=== PATIENT | male | born 1955 | race Caucasian/White ===

== ENCOUNTER 2023-06-08 10:58 | Inpatient (IN) | payer MEDICARE, SELFPAY ==
[2023-06-08] VITALS (13 sets, daily range): BP systolic 79–137; BP diastolic 49–72; PULSE 51–83; RESP 15–22; TEMP 36.4–36.8; O2SAT 95–100
--- NOTE | ~2023-06-08 | XR_ITS ---
EXAMINATION: XR chest 1V portable DATE: 06/27/2023 13:09 INDICATION: Shortness of breath. TECHNIQUE: A single frontal view of the chest was obtained on 2 radiographs. COMPARISON: Chest single view 06/12/2023, CT abdomen and pelvis 06/27/2023 FINDINGS: Again seen is mild elevation of left hemidiaphragm. Calcified pulmonary nodules and calcifi ed hilar and mediastinal lymph nodes are consistent with old granulomatous disease. No pleural effusi on or pneumothorax. The heart size is normal. IMPRESSION: 1. No acute cardiopulmonary disease. Reviewed, dictated and finalized at location E. FING COORDINATOR
--- NOTE | ~2023-06-08 | XR_ITS ---
EXAMINATION: XR chest 1V portable DATE: 06/10/2023 16:48 INDICATION: Shortness of breath TECHNIQUE: frontal view of the chest was obtained. COMPARISON: Chest radiograph dated 03/24/2014 FINDINGS: Again seen are decreased lung volumes, left greater than right with chronic elevation the left hemidi aphragm. Bilateral mild perihilar increased interstitial pattern which could represent mild pulmonary edema. No pleural effusion or pneumothorax. There are few scattered bilateral small calcified pulmon stephane nodules along with calcified bilateral mediastinal and bilateral hilar lymph nodes consistent wit h old granulomatous disease. Cardiomediastinal silhouette is within normal limits for AP technique. IMPRESSION: 1. Bilateral mild increased perihilar interstitial pattern which could be seen with mild pulmonary ed tien. 2. Small lung volumes with chronic elevation of the left hemidiaphragm. Reviewed, dictated and finalized at location A. IMPRESSION: 1. Bilateral mild increased perihilar interstitial pattern which could be seen with mild pulmonary edema. 2. Small lung volumes with chronic elevation of the left hemidiaphragm.
--- NOTE | ~2023-06-08 | US_ITS ---
EXAMINATION: US paracentesis abd w/image DATE: 06/08/2023 15:27 INDICATION: Ascites. TECHNIQUE: The procedure and its risks and benefits were discussed with the patient. Potential risks discussed included bleeding and infection. The skin was prepped and draped in sterile fashion. 1% lid ocaine was used for local anesthesia. Under ultrasound guidance, a 5 Fr catheter with trochar was adv anced into the ascites in the left lower quadrant. Fluid was aspirated into vacuum bottles. The mitchell ter was removed, and a dressing was applied. There were no immediate complications. FINDINGS: Ultrasound images demonstrate ascites and the catheter within the fluid. IMPRESSION: 1. Successful ultrasound-guided paracentesis yielding 5000 mL of bloody dark maroon-colored fluid. Reviewed, dictated and finalized at location A. IMPRESSION: 1. Successful ultrasound-guided paracentesis yielding 5000 mL of bloody dark m aroon-colored fluid.
--- NOTE | ~2023-06-08 | CT_ITS ---
EXAMINATION: CT abdomen pelvis wo con DATE: 06/27/2023 10:05 INDICATION: Abdominal pain TECHNIQUE: Computed tomography (CT) of the abdomen and pelvis was performed without intravenous contr ast. Automated exposure control and iterative reconstruction technique were employed. The dose-length product was 1491.51 mGy-cm. COMPARISON: 02/05/2023 FINDINGS: Small left and tiny right posterior layering pleural effusions with mild dependent compressive atelec tasis in the bilateral lower lobes. Again seen are a few small bilateral calcified pulmonary nodules along with calcified mediastinal and bilateral hilar lymph nodes and multiple small splenic calcific lesions consistent with old granulomatous disease. Cardiomegaly with scattered atherosclerotic crooks ry artery calcifications. No pericardial effusion. Again seen is a shrunken nodular cirrhotic liver. Persistent large amount of ascites. There multiple small dependently oriented crescentic densities wi thin the ascites in the pelvis which suggests complex ascites with layering blood or material along p ossible internal septations. There are several gallstones within the nondilated gallbladder which is without abnormal gallbladder wall thickening. Pancreas, bilateral adrenal glands are normal. Mild silas ateral renal atrophy with 4.2 cm exophytic cyst at the upper pole of the left kidney. There is modera te colonic diverticulosis with a sigmoid predominance. There is no adjacent inflammatory change to s uggest diverticulitis. No bowel obstruction. 2.6 x 1.8 cm right upper quadrant mass positioned betwee n the liver, inferior vena cava and main portal vein. Again noted is stranding along the greater omen tia. Bladder is normal. No pathologically enlarged abdominal or pelvic lymphadenopathy. Severe spondy losis at L4-L5 with cephalad mild lumbar and moderate lower thoracic spondylosis. IMPRESSION: 1. Persistent large amount of complex ascites with prior diagnostic paracentesis demonstrating hemorr hagic ascites with evidence of metastatic adenocarcinoma. 2.6 x 1.8 cm right upper quadrant mass leander g the inferior vena cava which is also suspicious for metastatic disease. 2. Cirrhosis. 3. Stranding of the greater omentum which could be due to pulmonary venous congestion or metastatic d isease. 4. Cholelithiasis. 5. Small left and trace right pleural effusions. 6. Diverticulosis. 7. Cardiomegaly. Reviewed, dictated and finalized at location A. NG CLOSER IMPRESSION: 1. Persistent large amount of complex ascites with prior diagnostic paracentesi s demonstrating hemorrhagic ascites with evidence of metastatic adenocarcinoma. 2.6 x 1.8 cm right upper quadrant mass along the inferior vena cava which is a lso suspicious for metastatic disease. 2. Cirrhosis. 3. Stranding of the greater omentum which could be due to pulmonary venous kamini estion or metastatic disease. 4. Cholelithiasis. 5. Small left and trace right pleural effusions. 6. Diverticulosis. 7. Cardiomegaly.
--- NOTE | ~2023-06-08 | CT_ITS ---
EXAMINATION: CT abdomen pelvis wo con DATE: 06/08/2023 13:15 INDICATION: One week of weakness. Possible bowel obstruction. TECHNIQUE: Computed tomography (CT) of the abdomen and pelvis was performed without intravenous contr ast. Automated exposure control and iterative reconstruction technique were employed. The dose-length product was 1435.54 mGy-cm. COMPARISON: None FINDINGS: A few scattered bilateral calcified pulmonary nodules, multiple calcified bilateral hilar and mediast inal lymph nodes and multiple tiny splenic calcifications, all consistent with old granulomatous dise ase. Mild cardiomegaly. Atherosclerotic coronary artery calcifications. Scattered mild myocardial fat ty atrophy along the apical septal, apical and anteroseptal segments of the left ventricle consistent with sequela of chronic infarct. No pericardial effusion. Shrunken cirrhotic liver with mild surface nodularity. There is large amount of ascites scattered throughout the abdomen and pelvis. Heterogene ous increased attenuation likely representing either sludge or more likely gallstones within the othe rwise normal-appearing gallbladder with no wall thickening or pericholecystic inflammatory change to suggest acute cholecystitis. Pancreas, bilateral adrenal glands and kidneys are normal. There is mode rate colonic diverticulosis with a sigmoid and descending colon predominance. There is no adjacent i nflammatory change to suggest diverticulitis. No dilated bowel to suggest obstruction. There is exten sive stranding throughout the greater omentum. Gas and a Muñoz catheter within the decompressed bladd er. No pathologically enlarged abdominal or pelvic lymphadenopathy. Transitional sacralized L5 segmen t. Severe disc height loss with degenerative endplate changes at L4-L5. More cephalad mild lumbar and moderate lower thoracic spondylosis. Chronic mild anterior wedging of a few lower thoracic vertebral bodies. IMPRESSION: 1. Cirrhosis with large amount of ascites. 2. Moderate diverticulosis. No bowel obstruction. 2. Cholelithiasis versus sludge within the otherwise normal gallbladder. 4. Mild cardiomegaly coronary artery disease and myocardial fatty atrophy consistent with chronic inf arction in the left anterior descending coronary artery vascular distribution. 5. Nonspecific stranding throughout the greater omentum which could represent edema such in the setti ng of portal venous hypertension. No definitive nodularity although differential would include perito dm implants. There is known history of malignancy. Could consider diagnostic paracentesis. Reviewed, dictated and finalized at location A. IMPRESSION: 1. Cirrhosis with large amount of ascites. 2. Moderate diverticulosis. No bowel obstruction. 2. Cholelithiasis versus sludge within the otherwise normal gallbladder. 4. Mild cardiomegaly coronary artery disease and myocardial fatty atrophy consi stent with chronic infarction in the left anterior descending coronary artery v ascular distribution. 5. Nonspecific stranding throughout the greater omentum which could represent e ayo such in the setting of portal venous hypertension. No definitive nodularit y although differential would include peritoneal implants. There is known histo ry of malignancy. Could consider diagnostic paracentesis.
--- NOTE | ~2023-06-08 | MR_ITS ---
EXAMINATION: MR abdomen wo/w con INDICATION: Adenocarcinoma of unknown primary TECHNIQUE: Coronal SSFSE ARC, WATER:coronal LAVA-FLEX, Coronal 2D FIESTA FatSat, Axial SSFSE BH ARC, Axial 3D DualEcho BH, Axial SSFSE-IR, Axial DWI b=500, Axial 2D FIESTA FatSat, pre and dynamic postco ntrast Axial LAVA ARC, postcontrast Coronal In and Opposed phase LAVA FLEX COMPARISON: CT, 06/08/2023 CONTRAST: Multihance, 20 cc FINDINGS: There are small pleural effusions. There is a large volume of ascites. There is mild nodula rity of the liver surface. The spleen, pancreas, and adrenal glands are unremarkable. Stones are pres ent in the gallbladder which is nondistended. Cysts of the kidneys measure up to 4.2 cm in the left k idney upper pole. There is a 2.5 x 1.7 cm mass in the right upper quadrant situated between the right hepatic lobe, the second portion of the duodenum, and the right kidney. There is thickening of the o mentum. There are no dilated loops of bowel. IMPRESSION: 1. Right upper quadrant mass which could reflect peritoneal metastasis or lymphadenopathy. 2. Large volume of ascites. 3. Omental thickening which could be due to congestion versus malignancy. Reviewed, dictated and finalized at location B. 6TH GRADE TEACHER IMPRESSION: 1. Right upper quadrant mass which could reflect peritoneal metastasis or lymph adenopathy. 2. Large volume of ascites. 3. Omental thickening which could be due to congestion versus malignancy.
--- NOTE | ~2023-06-08 | US_ITS ---
EXAMINATION: US paracentesis abd w/image DATE: 06/12/2023 17:16 INDICATION: Ascites. TECHNIQUE: The procedure and its risks and benefits were discussed with the patient. Potential risks discussed included bleeding and infection. The skin was prepped and draped in sterile fashion. 1% lid ocaine was used for local anesthesia. Under ultrasound guidance, a 5 Fr catheter with trochar was adv anced into the ascites in the left lower quadrant. Fluid was aspirated into vacuum bottles. The mitchell ter was removed, and a dressing was applied. There were no immediate complications. FINDINGS: Ultrasound images demonstrate ascites and the catheter within the fluid. IMPRESSION: 1. Successful ultrasound-guided paracentesis yielding 4000 mL of dark bloody fluid. Reviewed, dictated and finalized at location A. HAND IMPRESSION: 1. Successful ultrasound-guided paracentesis yielding 4000 mL of dark bloody f luid.
--- NOTE | ~2023-06-08 | US_ITS ---
EXAMINATION: US paracentesis abd w/image DATE: 06/22/2023 14:55 INDICATION: Ascites. TECHNIQUE: The procedure and its risks, benefits, and alternatives were discussed with the patient. P otential risks discussed included bleeding and infection. The skin was prepped and draped in sterile fashion. 1% lidocaine was used for local anesthesia. Under ultrasound guidance, a 5 Fr catheter with trochar was advanced into the ascites in the left lower quadrant. Fluid was aspirated. The catheter w as removed, and a dressing was applied. There were no immediate complications. FINDINGS: Ultrasound images demonstrate ascites and the catheter within the fluid. IMPRESSION: 1. Successful ultrasound-guided paracentesis yielding 4400 mL of opaque, red fluid. Reviewed, dictated and finalized at location A. LS INSPECTOR IMPRESSION: 1. Successful ultrasound-guided paracentesis yielding 4400 mL of opaque, red f luid.
--- NOTE | ~2023-06-08 | US_ITS ---
EXAMINATION: US paracentesis abd w/image DATE: 06/20/2023 15:24 INDICATION: Ascites. TECHNIQUE: The procedure and its risks, benefits, and alternatives were discussed with the patient. P otential risks discussed included bleeding and infection. The skin was prepped and draped in sterile fashion. 1% lidocaine was used for local anesthesia. Under ultrasound guidance, a 5 Fr catheter with trochar was advanced into the ascites in the left lower quadrant. Fluid was aspirated. The catheter w as removed, and a dressing was applied. There were no immediate complications. FINDINGS: Ultrasound images demonstrate ascites and the catheter within the fluid. IMPRESSION: 1. Successful ultrasound-guided paracentesis yielding 5000 mL of opaque, dark red fluid. Reviewed, dictated and finalized at location A. LLOFACIAL SURGEON
--- NOTE | ~2023-06-08 | US_ITS ---
EXAMINATION: US paracentesis abd w/image DATE: 06/27/2023 16:54 INDICATION: Ascites. TECHNIQUE: The procedure and its risks and benefits were discussed with the patient. Potential risks discussed included bleeding and infection. The skin was prepped and draped in sterile fashion. 1% lid ocaine was used for local anesthesia. Under ultrasound guidance, a 5 Fr catheter with trochar was adv anced into the ascites in the left lower quadrant. Fluid was aspirated into vacuum bottles. The mitchell ter was removed, and a dressing was applied. There were no immediate complications. FINDINGS: Ultrasound images demonstrate ascites and the catheter within the fluid. IMPRESSION: 1. Successful ultrasound-guided paracentesis yielding 4100 mL of dark bloody maroon-colored fluid. Reviewed, dictated and finalized at location A. NT BOAT AND BARGE LOADER IMPRESSION: 1. Successful ultrasound-guided paracentesis yielding 4100 mL of dark bloody m aroon-colored fluid.
--- NOTE | ~2023-06-08 | XR_ITS ---
EXAMINATION: XR chest 1V, XR abdomen/kub 1V DATE: 06/12/2023 18:20 INDICATION: Worsening nausea and vomiting TECHNIQUE: 1. AP supine view of the chest was obtained. 2. Supine AP view of the abdomen and pelvis was obtained on 2 radiographs. COMPARISON: Chest radiograph dated FINDINGS: Chest : Chronic elevation the left hemidiaphragm. Prior perihilar interstitial opacities resolved. No new air space opacities, pulmonary edema, pleural effusion or pneumothorax. Again seen are few scattered bila teral calcified pulmonary nodules along with prominent bilateral calcified hilar and mediastinal lymp h nodes consistent with old granulomatous disease. Size is normal. KUB: There are some gas in the stomach and scattered throughout the colon. No dilated loops of gas-filled bowel to suggest obstruction. Transitional sacralized L5 segment IMPRESSION: 1. Chronic elevation of the left hemidiaphragm. No acute cardiopulmonary disease. 2. Unremarkable bowel gas pattern with no dilated gas-filled bowel to suggest obstruction. Reviewed, dictated and finalized at location A. [employer] IMPRESSION: 1. Chronic elevation of the left hemidiaphragm. No acute cardiopulmonary diseas e. 2. Unremarkable bowel gas pattern with no dilated gas-filled bowel to suggest o bstruction.
--- NOTE | 2023-06-08 11:58 | ECG_ITS ---
Measurements Intervals [place] Rate: 54 P: 4 MD: 170 QRS: -24 QRSD: 109 T: -42 QT: 448 QTc: 425 Interpretive Statements SINUS BRADYCARDIA LEFT VENTRICULAR HYPERTROPHY AND ST-T CHANGE CANNOT RULE OUT SEPTAL INFARCT, AGE INDETERMINATE T WAVE ABNORMALITY IN ANT/INF LEADS- CONSIDER ISCHEMIA BASELINE ARTIFACT- V5 ABNORMAL ECG NO PREVIOUS ECG AVAILABLE FOR COMPARISON Electronically Signed On 06-08-2023 14:22:31 CDT by Redd Robles D.O.
[2023-06-08] MEDS: SODIUM CHLORIDE 0.9% IV 2,000 ML 999 ML (12:16)
[2023-06-08 12:18] LABS: Basophils Absolute Auto 0.1 K/mm3 (0.0-0.1); Basophils Percent Auto 0.9 % (0.2-1.2); Eosinophils Absolute Auto 0.1 K/mm3 (0-0.3); Eosinophils Percent Auto 0.7 % (0-4.4); Hematocrit 27.2 % (42.0-52.0); Hemoglobin 8.1 g/dL (14.0-18.0); Immature Granulocyte Absolute 0.04 K/mm3 (0.00-0.031); Immature Granulocyte Percent A 0.5 % (0-0.5); Lymphocytes Absolute Auto 1.12 K/mm3 (0.9-3.2); Lymphocytes Percent Auto 13.8 % (18.3-44.2); Mean Corpuscular HGB Conc 29.8 g/dl (32-36); Mean Corpuscular Hemoglobin 27.8 pg (26-34); Mean Corpuscular Volume 93.5 fl (80-100); Mean Platelet Volume 11.1 fl (7.4-10.4); Monocytes Absolute Auto 0.9 K/mm3 (0.1-0.6); Monocytes Percent Auto 10.8 % (2.6-8.5); Neutrophils Percent Auto 73.3 % (45.5-73.1); Platelet Count Result 357 k/mm3 (150-375); Red Blood Count 2.91 M/mm3 (4.6-6.20); White Blood Count 8.1 K/mm3 (4.5-10.0)
[2023-06-08 12:34] LABS: Alanine Aminotransferase 15 U/L (6-50); Albumin Level 3.1 g/dL (3.5-5.1); Alkaline Phosphatase 169 U/L (38-126); Anion Gap 4 mmol/L (8-16); Aspartate Amino Transferase 33 U/L (17-59); Bilirubin,Total 0.7 mg/dL (0.2-1.3); Blood Urea Nitrogen 29 mg/dL (9-20); Calcium 8.3 mg/dL (8.4-10.2); Carbon Dioxide 23 mmol/L (22-30); Chloride 106 mmol/L (98-107); Estimated CRCL calculation 38 ml/min; Estimated Glomerular Filt Rate 32; Glucose 129 mg/dL (65-110); Hypochromasia 1+ (NORMAL); Platelet Estimate Adequate (Adequate); Poikilocytosis 1+ (NORMAL); Potassium 5.7 mmol/L (3.4-5.0); Sodium 133 mmol/L (137-145)
[2023-06-08 12:35] LABS: Anisocytosis 2+ (NORMAL); Schistocytes None Seen (NORMAL)
[2023-06-08 12:39] LABS: Lactic Acid Reflex 2.1 mmol/L (0.7-2.0)
[2023-06-08 12:41] LABS: Appearance Urine Turbid (Clear); Bacteria Urine None Seen /hpf; Bilirubin Urine Negative (Negative); Blood Urine Negative (Negative); Color Urine Yellow (Yellow); Glucose Urine UA Negative (Negative); Hyaline Casts Urine Present /lpf; Ketones Urine Negative (Negative); Leukocyte Esterase Ur Negative LEU/UL (Negative); Nitrate Urine Negative (Negative); Non Pathogenic Casts >20; Protein Urine 2+ mg/dL (Negative); Specific Grav Ur 1.022 (1.001-1.035); Squamous Epithelial Cell Urine Occasional /hpf (Few); pH Urine 6.5 (5.0-9.0)
[2023-06-08 12:42] LABS: Add Urine Microscopic? YES
--- NOTE | 2023-06-08 13:08 | PC.NURSE ---
Pt to CT scan via stretcher at this time. Fluids infusing.
--- NOTE | 2023-06-08 13:29 | ED.GENADULT ---
HPI - General Adult General Chief complaint: Weakness Stated complaint: FALL AT [facility] INITIALLY DIZZY Time Seen by Provider: 06/08/23 12:04 History of Present Illness HPI narrative: Patient is a 67-year-old male who presents ER with weakness. Reports he has been feeling like he has been dying for the last week. He was walking from [facility] to his car when his legs gave out. He is found to be hypotensive bradycardic. He reports over the last week he has been having decreased urination, he has been having blood-tinged diarrhea, and he has been having abdominal cramping. The diarrhea is only squirts he has not had a full bowel movement. Denies history of bowel obstruction. He has no chest pain or chest pressure. He denies dyspnea. He does have a history of coronary stents back in 2013. Reports he has been compliant with his medication. Related Data Home Medications Medication Instructions Recorded Confirmed atorvastatin 40 mg tablet mg 06/08/23 carvedilol 6.25 mg tablet mg 06/08/23 clopidogrel 75 mg tablet mg 06/08/23 lisinopril 5 mg tablet mg 06/08/23 Allergies Allergy/AdvReac Type Severity Reaction Status Date / Time No Known Allergies Allergy Verified 06/08/23 12:13 Review of Systems Review of Systems: All systems reviewed & are unremarkable except as noted in HPI and below Constitutional: Constitutional: Denies chills, Reports fatigue and Denies fever(s) ENT: Denies nasal congestion and Denies sore throat Cardiovascular: Cardiovascular: Denies chest pain, Denies rapid heart rate and Denies radiating jaw, neck or arm pain Respiratory: Respiratory: Denies cough, Denies dyspnea and Denies wheezing Gastrointestinal: Gastrointestinal: Reports abdominal pain, Reports bloating, Reports diarrhea, Denies nausea and Denies vomiting Genitourinary: Genitourinary: Reports oliguria, Denies dysuria and Denies urinary frequency Musculoskeletal: Musculoskeletal: Reports no additional musculoskeletal complaints PMFSH Past Medical History Medical History (Updated 06/08/23 @ 22:05 by Stevan Varghese MD) Coronary artery disease Hypercholesterolemia Hypertension Myocardial infarction Surgical History Surgical History (Updated 06/08/23 @ 13:34 by Stevan Varghese MD) H/O cardiac catheterization Bare-metal stent to proximal LAD 03/2014. Social History Social History Smoking packs per day: 1 Smoking cigarettes per day: 20.0 Years smoked: 47 Smoking pack-years: 47.00 Smoking status: Current every day smoker Tobacco type: cigarettes Alcohol intake: never Substance use: never Lack of Transportation: No Lack of Food: Never True Current Housing: I Have Housing Concerned About Future Housing: No Difficulty Paying Gas/Electric Bills: No Difficulty Paying for Meds: No Currently Unemployed: No Education: Grade School Difficulty w/ Childcare or Family Care: No Spiritual care concerns: No Exam Narrative: GENERAL: Chronically ill-appearing, well-nourished, and in no acute distress. HEAD: Normocephalic, atraumatic. EYES: PERRL and EOMI. ENT: Mucous membranes moist. NECK: Supple. CHEST: Clear to auscultation. No respiratory distress. HEART: Bradycardic and regular. Normal peripheral pulses. ABDOMEN: Soft, nontender, distended. EXTREMITIES: Normal range of motion. 2+ edema. SKIN: Warm, dry, no rash. NEURO:Alert and oriented x3. PSYCH: Normal mood and affect. Course Course Emergency Course: Patient aggressively fluid resuscitated with significant improvement in blood pressure. Patient tolerated paracentesis which radiology reports was grossly bloody. Concern for potentially malignant ascites. We will send for cytology. Admitted to hospitalist service for further treatment evaluation. Vital Signs Vital signs: Vital Signs Temperature 97.6 F 06/08/23 11:06 Pulse Rate 68 06/08/23 11:06 Respiratory Rate 17 06/08/23 11:06 Blood Pressure 99/50
[2023-06-08 13:57] LABS: Troponin I < 0.012 ng/mL (0.000-0.034)
[2023-06-08] MEDS: MORPHINE SULFATE (*CRX) 4 MG/ML INJ IV PUSH (14:02)
[2023-06-08 14:18] LABS: INR 1.2; Prothrombin Time 15.6 Seconds (11.1-14.7)
[2023-06-08 14:19] LABS: Partial Thromboplastin Time 34.4 SECONDS (22.3-36.8)
--- NOTE | 2023-06-08 15:05 | PC.NURSE ---
Pt to U/S for paracentesis at this time. Sister remains at bedside.
[2023-06-08 15:26] LABS: Reflex Lactic Acid Yes or No Add Lactic
[2023-06-08 16:14] LABS: Appearance Peritoneal Fluid Bloody (Clear); Color Peritoneal Fluid Red (Colorless); Lymphocytes Peritoneal Fluid 67 %; Monocytes Peritoneal Fluid 9 %; Neutrophils Peritoneal Fluid 22 % (0-25); Nucleated Cells Peritoneal Flu 981 /uL (0-500); RBC Peritoneal Fluid 305000 /uL (0-100000); Source Peritoneal Fluid Peritoneal Fluid
[2023-06-08 16:15] LABS: Macrophages Peritoneal Fluid 2 %
[2023-06-08 16:22] LABS: Lactic Acid 1.4 mmol/L (0.7-2.0)
--- NOTE | 2023-06-08 19:41 | PM.IMHP ---
H&P: HPI History of Present Illness Date/Time: 06/08/23 19:41 Chief Complaint: weakness Narrative: Patient is a 67-year-old male who presents ER with weakness.? Reports he has been feeling like he has been dying for the last week.? He was walking from [facility] to his car when his legs gave out.? He is found to be hypotensive bradycardic.? He reports over the last week he has been having decreased urination, he has been having blood-tinged diarrhea, and he has been having abdominal cramping.? The diarrhea is only squirts he has not had a full bowel movement.? Denies history of bowel obstruction.? He has no chest pain or chest pressure.? He denies dyspnea.? He does have a history of coronary stents back in 2013.? Reports he has been compliant with his medication. Denies taking anti blood thinner. He was fluid resuscitated in the ER which he responded rapidly, had abdominal paracenteses that yielded 5000 mL of bloody fluid, ordered evaluation showed that patient has VIN with hyperkalemia, which has improved on repeat labs however hemoglobin dropped from 8.1 to 7.7. he denied passing any bloody stool since arrival to the ED. patient stated he feels so much better, he is less weak,and breathing is much better Review of Systems Review of Systems: All system reviewed and found negative except as in HPI PMFSH Past Medical History Medical History (Updated 06/09/23 @ 03:48 by Claudine House MD) Coronary artery disease Hypercholesterolemia Hypertension Myocardial infarction Surgical History Surgical History (Updated 06/08/23 @ 13:34 by Stevan Varghese MD) H/O cardiac catheterization Bare-metal stent to proximal LAD 03/2014. Social History Social History Smoking packs per day: 1 Smoking cigarettes per day: 20.0 Years smoked: 47 Smoking pack-years: 47.00 Smoking status: Current every day smoker Tobacco type: cigarettes Alcohol intake: never Substance use: never Lack of Transportation: No Lack of Food: Never True Current Housing: I Have Housing Concerned About Future Housing: No Difficulty Paying Gas/Electric Bills: No Difficulty Paying for Meds: No Currently Unemployed: No Education: Grade School Difficulty w/ Childcare or Family Care: No Spiritual care concerns: No Meds Home Medications and Allergies Home Medications Medication Instructions Recorded Confirmed Type atorvastatin 40 mg tablet 40 mg PO HS 06/08/23 06/08/23 History carvedilol 6.25 mg tablet 6.25 mg PO BID 06/08/23 06/08/23 History clopidogrel 75 mg tablet 75 mg PO DAILY 06/08/23 06/08/23 History lisinopril 5 mg tablet 5 mg PO BID 06/08/23 06/08/23 History Allergies Allergy/AdvReac Type Severity Reaction Status Date / Time No Known Allergies Allergy Verified 06/08/23 12:13 Vital Signs Vital Signs - 24 hr 06/08/23 11:06 06/08/23 12:12 06/08/23 12:12 Temperature 97.6 F Pulse Rate 68 51 L 51 L Respiratory Rate 17 20 Blood Pressure 99/50 L 79/49 L Pulse Oximetry 99 100 Oxygen Delivery Room Air 06/08/23 12:16 06/08/23 13:28 06/08/23 13:58 Temperature Pulse Rate 51 L 80 82 Respiratory Rate 22 H 20 20 Blood Pressure 89/63 L 118/67 124/64 Pulse Oximetry 100 99 100 Oxygen Delivery 06/08/23 14:50 06/08/23 15:50 06/08/23 17:26 Temperature Pulse Rate 79 81 71 Respiratory Rate 17 19 18 Blood Pressure 116/63 137/67 127/72 Pulse Oximetry 99 100 99 Oxygen Delivery Exam Narrative: GENERAL: Chronically ill-appearing, well-nourished, and in no acute distress. HEAD: Normocephalic, atraumatic. EYES: PERRL and EOMI. ENT:? Mucous membranes moist. NECK: Supple. CHEST: Clear to auscultation.? No respiratory distress. HEART: regular rate and rhythm, no murmur or gallop. ABDOMEN: Soft, nontender, distended, prominent veins EXTREMITIES: Normal range of motion.? 2+ edema. SKIN: Warm, dry, no rash. NEURO:Alert and oriented x3. PSYCH: Normal mood and affect. ? C
--- NOTE | 2023-06-08 20:40 | PC.NURSE ---
Called to give report and was told no one was available to take report at the moment and RN would call back.
[2023-06-08] MEDS: ACETAMINOPHEN 325 MG TABLET 650 MG PO (20:49)
--- NOTE | 2023-06-08 20:55 | PC.NURSE ---
Called to give report. No answer.
--- NOTE | 2023-06-08 21:39 | ADMGEN ---
This patient, Frank Chao III, was admitted to IMU Room 206-02. Patient/family oriented to hospital policies and general routines including ID bracelet, bed and alarms, visiting hours, pain management, procedures, bathroom and other care routines, personal items, smoking policy, room service/diet, and visiting hours. Information on how to activate the Rapid Response Team has been discussed. Patient/Family are encouraged to report perceived risks to care and to ask questions if they do not understand what they are told or what they should do.
[2023-06-08 23:26] LABS: Hematocrit 25.6 % (42.0-52.0); Hemoglobin 7.7 g/dL (14.0-18.0)
[2023-06-08] MEDS: carvediloL 6.25 MG TABLET PO (23:38)
[2023-06-08] MEDS: ATORVASTATIN 40 MG TABLET PO (23:38)
[2023-06-08] MEDS: lisinopriL 5 MG TABLET PO (23:39)
[2023-06-08 23:52] LABS: Anion Gap 2 mmol/L (8-16); Blood Urea Nitrogen 29 mg/dL (9-20); Calcium 7.8 mg/dL (8.4-10.2); Carbon Dioxide 23 mmol/L (22-30); Chloride 108 mmol/L (98-107); Estimated CRCL calculation 40 ml/min; Estimated Glomerular Filt Rate 33; Glucose 78 mg/dL (65-110); Potassium 5.4 mmol/L (3.4-5.0); Sodium 133 mmol/L (137-145)
[2023-06-09] VITALS (17 sets, daily range): BP systolic 0–140; BP diastolic 0–65; PULSE 64–83; RESP 18–22; TEMP 36.1–37; O2SAT 95–100
[2023-06-09 05:40] LABS: Basophils Absolute Auto 0.1 K/mm3 (0.0-0.1); Basophils Percent Auto 0.8 % (0.2-1.2); Eosinophils Absolute Auto 0.1 K/mm3 (0-0.3); Eosinophils Percent Auto 1.3 % (0-4.4); Hematocrit 25.1 % (42.0-52.0); Hemoglobin 7.6 g/dL (14.0-18.0); Immature Granulocyte Absolute 0.03 K/mm3 (0.00-0.031); Immature Granulocyte Percent A 0.4 % (0-0.5); Lymphocytes Absolute Auto 1.03 K/mm3 (0.9-3.2); Lymphocytes Percent Auto 13.8 % (18.3-44.2); Mean Corpuscular HGB Conc 30.3 g/dl (32-36); Mean Corpuscular Hemoglobin 28.4 pg (26-34); Mean Corpuscular Volume 93.7 fl (80-100); Mean Platelet Volume 10.7 fl (7.4-10.4); Monocytes Absolute Auto 0.9 K/mm3 (0.1-0.6); Monocytes Percent Auto 11.8 % (2.6-8.5); Neutrophils Absolute Auto 5.4 K/mm3 (1.3-6.7); Neutrophils Percent Auto 71.9 % (45.5-73.1); Platelet Count Result 321 k/mm3 (150-375); Red Blood Count 2.68 M/mm3 (4.6-6.20); Red Cell Distribution Width 15.9 % (11.5-14.5); White Blood Count 7.5 K/mm3 (4.5-10.0)
[2023-06-09 05:47] LABS: Anion Gap 1 mmol/L (8-16); Blood Urea Nitrogen 28 mg/dL (9-20); Calcium 7.6 mg/dL (8.4-10.2); Carbon Dioxide 24 mmol/L (22-30); Chloride 108 mmol/L (98-107); Estimated CRCL calculation 40 ml/min; Estimated Glomerular Filt Rate 33; Glucose 74 mg/dL (65-110); Sodium 133 mmol/L (137-145)
[2023-06-09 06:07] LABS: Magnesium 2.6 mg/dL (1.6-2.3); Phosphorus 2.7 mg/dL (2.5-4.5)
--- NOTE | 2023-06-09 07:40 | PC.NURSE ---
[address] Rosenberg about transfusion orders, gave verbal order to only transfuse 1 unit at this time
[2023-06-09 08:17] LABS: Hematocrit 27.4 % (42.0-52.0); Hemoglobin 8.3 g/dL (14.0-18.0)
--- NOTE | 2023-06-09 08:40 | PM.IMPN ---
Progress Note: A&P Assessment and Plan (1) Hemorrhagic ascites: Code(s): R18.8 - Other ascites Status: Acute (2) Abdominal ascites: Code(s): R18.8 - Other ascites Status: Acute (3) VIN (acute kidney injury): Code(s): N17.9 - Acute kidney failure, unspecified Status: Acute (4) Anemia: Code(s): D64.9 - Anemia, unspecified Status: Acute (5) GI bleeding: Code(s): K92.2 - Gastrointestinal hemorrhage, unspecified Status: Acute (6) Liver cirrhosis: Code(s): K74.60 - Unspecified cirrhosis of liver Status: Acute Plan 67M w/ PMH CAD s/p stent, HTN, HLD presented with blood tinged stool, abdominal ascites and LE swelling. Admitted on 06/09 for anemia and further workup. 1) anemia - unclear if chronic or acute. cirrhosis vs GI bleed vs AOCD? - history of blood tinged stool is suspect for hemorrhoids. will have to do a rectal exam as it does not appear that was done. either way will allow GI to give their recommendations. he denies caffeine use, active alcohol abuse, he is prior smoker, he takes aspirin daily for his CAD and also takes Excedrin on occasion for headache. - avoid protonix for now as he has ascites, unless absolutely necessary - changed full diet to CLD, GI consulted - HB 7.7, he is going to receive 1 unit PRBC, check again at 1pm 2) cirrhosis - this is new diagnosis to the patient. MELD score 18. needs hepatology referral as outpatient, hopefully GI will have someone to refer him to - denies blood transfusions before 1970. denies heavy alcohol use, was only social drinker before he retired in 2006. no family history of liver disease, denies hx of illicit drug abuse - check hepatitis labs, AFP, and a wide range of others 3) hemorrhagic ascites/SBP - 5L out in ER of blood fluid. the PMNs are above 250 but gram stain grew nothing. will continue ceftriaxone and repeat paracentesis studies tomorrow. will need prophylactic bactrim ongoing as he is very high risk - as of now he appears euvolemic, the paracentesis AND aggressive fluid resuscitation in the ER did not improve his kidney function 4) VIN - likely has CKD, fluid resuscitation did not help. would be prudent to assess for hepatorenal syndrome. discontinue lisinopril and coreg, and give 100mg IV albumin qday x 2 days and re-assess. if no response this is likely hepatorenal syndrome - avoid protonix unless absolutely necessary since it can cause VIN 5) CAD - hold aspirin and beta rupali for now, restart as appropriate 6) hypocalcemia - mild, asymptomatic - start tums replacement. FEN: CLD, saline lock IV GI prophylaxis: avoid for now DVT prophylaxis: SCD's only Lines: PIV Code Status: Full Code Dispo: stable more than 100+ minutes spent on chart review, history taking, and mgmt. Subjective Date/time seen: 06/09/23 08:40 Interval history: NAOE. pt reiterates what he had was a few weeks of blood tinged stool or pinkish stool. he reports he had LE swelling progressing for a week, and abdominal swelling for some time now, but he though it was due to diet Review of Systems Review of Systems: All systems reviewed & are unremarkable except as noted in HPI and below Exam Const: General: comfortable and no acute distress Eyes: Pupils: Equal, round and reactive pupils present Other: no KF rings Neck: Neck: supple Resp: Effort & Inspection: normal respiratory effort Auscultation: clear to auscultation bilaterally and no crackles Cardio: Rate: regular rate Rhythm: regular rhythm Heart sounds: no gallops, no murmurs and no rubs GI: Inspection: distended GI Palp: Yes Firmness to palpation present (GI), No Tenderness to palpation present (GI) and No Guarding due to palpation present (GI) Auscultation: normal bowel sounds Other: dullness to percussion Neuro: Motor exam (neuro): 5/5 motor strength present throughout Extrem: General: edema (1+ edema of B/L distal LEs)
[2023-06-09 09:02] LABS: Cholesterol 96 mg/dL (0-200); HDL Direct 25 mg/dL; Triglycerides 104 mg/dL (<150)
[2023-06-09 09:12] LABS: LDL Cholesterol Direct 50 mg/dL
[2023-06-09] MEDS: ALBUMIN HUMAN 25% 25 GM/100 ML 200 ML IVPB ×2 (10:11→20:04)
[2023-06-09 10:16] LABS: Hepatitis B Core IgM Result Negative (Negative)
[2023-06-09 10:29] LABS: Hepatitis B Surface Anti Res Negative; Hepatitis C Virus Antibody Negative (Negative)
[2023-06-09 13:07] LABS: Iron 38 ug/dL (49-181)
[2023-06-09 13:10] LABS: Hemoglobin A1C 5.5 % (<5.7)
--- NOTE | 2023-06-09 13:12 | PC.NURSE ---
Reported pt's H&H level increase to Dr. Rosenberg, holding blood orders at this time.
[2023-06-09 13:20] LABS: Percent Iron Saturation 21 % (20-50)
[2023-06-09 13:54] LABS: Hematocrit 26.3 % (42.0-52.0); Hemoglobin 7.9 g/dL (14.0-18.0)
--- NOTE | 2023-06-09 15:42 | WPDGICN ---
Assessment and Plan Assessment and plan (1) Liver cirrhosis: Code(s): K74.60 - Unspecified cirrhosis of liver Status: Acute Assessment and Plan: Patient with CT scan imaging which suggest a shrunken cirrhotic liver. Etiology is somewhat uncertain. Patient does not given alcohol history. Plan to obtain laboratory studies to search for other possible etiologies. Hepatitis serologies are in progress. Likely this contributes to his ascitic fluid which appears to have been chronic. Agree with alpha fetoprotein level now and this annually. He also should have yearly imaging studies such as ultrasound or CT scan of the liver. (2) Hemorrhagic ascites: Code(s): R18.8 - Other ascites Status: Acute Assessment and Plan: Patient with ascitic fluid. Likely on the basis of his cirrhosis. Paracentesis suggested bloody ascites. This is somewhat worrisome as this is often related to hepatocellular carcinoma. A traumatic tap is also a possibility. Other lesions cannot be excluded. We will need to check his cytology when available. In the interim we will start patient on low-salt diet and low-dose diuretics to be increased gradually. Daily weights may be of some benefit . monitor I's and O's and electrolytes. (3) Anemia: Code(s): D64.9 - Anemia, unspecified Status: Acute Assessment and Plan: Patient with anemia on presentation. Hemoglobin has remained stable overnight. Iron indices suggest this is from chronic disease. Potentially blood in stool may be contributing. Continue to monitor daily. (4) Blood in stool: Code(s): K92.1 - Melena Status: Acute Assessment and Plan: Patient with blood in stool he describes blood in stool. Hemorrhoids are associated with cirrhosis. Other lesions cannot be excluded. Colonoscopy can be performed after resolution of apparent constipation by history. Stool softeners and laxatives will be implemented at this time. (5) Constipation: Code(s): K59.00 - Constipation, unspecified Status: Acute Assessment and Plan: Start stool softeners and laxatives for a history consistent with constipation. Lactulose would be a good choice given his cirrhosis. (6) Gallstones: Code(s): K80.20 - Calculus of gallbladder without cholecystitis without obstruction Status: Acute Assessment and Plan: Gallstones noted on CT scan imaging are likely asymptomatic. GI Consult Note Consult date/time: 06/09/23 15:42 Reason for consult: Cirrhosis , ascites, and blood in stool HPI: Frank Chao III is a 67 year old male I am asked to see because of cirrhosis. Patient apparently in usual state of health was out shopping and passed out at the store. He was taken to the hospital where he was found to be hypotensive and bradycardic. Patient was noted to have a distended abdomen. CT scan imaging confirmed ascites. Patient states his abdomen is always been large. He has noticed no acute distention of the abdomen. He does report over the last 1-2 weeks he has had trace pedal edema developed. For some time he has had tendency towards constipation. He has difficulty with bowel habit and strains. He feels he cannot evacuate the stool. He will scored out soft stool however. This is somewhat blood-tinged. Patient denies any other active her ongoing bleeding. He denies abdominal pain. Patient denies any history of alcohol use. He has no prior history of hepatitis. He was never told he had liver disease prior to this. patient's family history is noncontributory. Abdominal paracentesis was performed in the emergency room. He was found to have a bloody tap. This was described as large amount of maroon ascitic fluid. Review of Systems Review of Systems: Review of systems noncontributory. [facility] Past Medical History Medical History (Updated 06/09/23 @ 15:47 by Jerardo Locke MD) Coronary artery
[2023-06-09 16:28] LABS: Ammonia < 9 umol/L (9-30)
[2023-06-09 19:30] LABS: Hepatitis B Surface Antigen Negative (Negative)
[2023-06-09] MEDS: SPIRONOLACTONE 50 MG TABLET PO (20:01)
[2023-06-09] MEDS: CALCIUM CARBONATE (TUMS) 500 MG (200 MG ELEMENTAL) 600 MG PO (20:01)
[2023-06-09] MEDS: ATORVASTATIN 40 MG TABLET PO (21:15)
[2023-06-10] VITALS (22 sets, daily range): BP systolic 134–163; BP diastolic 51–73; PULSE 68–94; RESP 16–21; TEMP 36.4–37.2; O2SAT 92–98
[2023-06-10] MEDS: CALCIUM CARBONATE (TUMS) 500 MG (200 MG ELEMENTAL) 600 MG PO (01:13)
[2023-06-10] MEDS: ACETAMINOPHEN 325 MG TABLET 650 MG PO ×2 (01:15→08:55)
[2023-06-10 05:25] LABS: Hematocrit 23.2 % (42.0-52.0); Hemoglobin 7.1 g/dL (14.0-18.0); Mean Corpuscular HGB Conc 30.6 g/dl (32-36); Mean Corpuscular Hemoglobin 28.2 pg (26-34); Mean Corpuscular Volume 92.1 fl (80-100); Platelet Count Result 273 k/mm3 (150-375); Red Blood Count 2.52 M/mm3 (4.6-6.20); Red Cell Distribution Width 16.1 % (11.5-14.5); White Blood Count 7.1 K/mm3 (4.5-10.0)
[2023-06-10 05:39] LABS: Alanine Aminotransferase 11 U/L (6-50); Albumin Level 3.3 g/dL (3.5-5.1); Alkaline Phosphatase 132 U/L (38-126); Anion Gap 4 mmol/L (8-16); Aspartate Amino Transferase 31 U/L (17-59); Bilirubin,Total 0.6 mg/dL (0.2-1.3); Blood Urea Nitrogen 21 mg/dL (9-20); Calcium 8.3 mg/dL (8.4-10.2); Carbon Dioxide 23 mmol/L (22-30); Chloride 106 mmol/L (98-107); Estimated CRCL calculation 44 ml/min; Estimated Glomerular Filt Rate 38; Glucose 95 mg/dL (65-110); Magnesium 2.4 mg/dL (1.6-2.3); Sodium 133 mmol/L (137-145)
[2023-06-10] MEDS: ALBUMIN HUMAN 25% 25 GM/100 ML 200 ML IVPB (08:22)
[2023-06-10] MEDS: polyethylene glycoL 3350 17 GM POWD.PACK PO (08:27)
[2023-06-10] MEDS: SPIRONOLACTONE 50 MG TABLET PO (08:27)
[2023-06-10] MEDS: LACTULOSE 20 GM/30 ML UDC PO (08:27)
--- NOTE | 2023-06-10 10:09 | PC.NURSE ---
This patient, Frank Chao III, was transferred to [facility] on 06/10/23 at 1000. Personal belongings sent with patient. Report given to accepting RN. Appropriate documentation sent with patient.
--- NOTE | 2023-06-10 10:21 | PCDIET ---
Patient transferred to 2[facility] Room 249 via bed at 1000 from IMU. IV access in right and left forearms. Report given by Jammie MAYNARD.
[2023-06-10] MEDS: MORPHINE SULFATE (*CRX) 4 MG/ML INJ IV PUSH (16:03)
--- NOTE | 2023-06-10 17:06 | WPDGIPROGNO ---
Progress Note: A&P Assessment and Plan (1) Hemorrhagic ascites: Code(s): R18.8 - Other ascites Status: Acute Assessment and Plan: Patient with hemorrhagic ascites. Etiology for this likely is secondary to cirrhosis. Bloody ascites most likely from lesions within the peritoneal space. Cytology pending to exclude cancer at this point. Plan to continue diuretics and low-salt diet. Daily weights and monitoring electrolytes in the interim. Patient now on Aldactone. (2) Liver cirrhosis: Code(s): K74.60 - Unspecified cirrhosis of liver Status: Acute Assessment and Plan: Patient with cirrhosis of the liver. Laboratory workup in progress. This may be related to a fatty liver. (3) Constipation: Code(s): K59.00 - Constipation, unspecified Status: Acute Assessment and Plan: Patient apparently has had difficulty with bowel habits. Plan to continue laxatives for presume constipation. Some blood in the stool noted. Perhaps a colonoscopy an EGD when he is stable next week. Potentially this could be performed as an outpatient. (4) Blood in stool: Code(s): K92.1 - Melena Status: Acute Assessment and Plan: Patient with blood tinged stools. This appears be related to his constipation. Given his cirrhosis hemorrhoids are likely. Other lesions cannot be excluded. Colonoscopy will be planned electively this can be done next week or as an outpatient. (5) Anemia: Code(s): D64.9 - Anemia, unspecified Status: Acute Assessment and Plan: Patient with anemia. Hemoglobin essentially stable at present. No significant active bleeding present. GI endoscopy can be performed next week. Continue to monitor for now. Iron studies suggest anemia of chronic disease. I suspect some component of this is related to his cirrhosis. Subjective Date/time seen: 06/10/23 17:06 Interval history: Patient alert comfortable. Offers no significant planes today. No obvious bleeding described. Denies significant abdominal pain. Review of Systems Review of Systems: Review of systems noncontributory. Exam Narrative: Physical exam reveals patient be alert. Comfortable at rest. Vital signs stable. HEENT exam reveals no icterus. Lungs are clear. Heart without murmur. Abdomen is soft only modest distention noted. No localized tenderness. Objective Data Vital Signs Vital Signs: Vital Signs - 24 hr 06/09/23 18:00 06/09/23 18:00 06/09/23 20:20 Temperature 98.1 F 97.7 F Pulse Rate 80 76 Respiratory Rate 22 H Blood Pressure 0/0 L 140/56 L Pulse Oximetry 96 Oxygen Delivery 06/10/23 00:00 06/09/23 20:00 06/09/23 20:00 Temperature 98.2 F Pulse Rate 83 83 83 Respiratory Rate 18 18 Blood Pressure 136/70 Pulse Oximetry 97 97 Oxygen Delivery Room Air 06/09/23 22:00 06/10/23 00:00 06/10/23 02:00 Temperature Pulse Rate 74 77 69 Respiratory Rate Blood Pressure Pulse Oximetry Oxygen Delivery 06/10/23 04:00 06/10/23 04:18 06/10/23 06:00 Temperature 98.9 F Pulse Rate 68 70 71 Respiratory Rate 18 Blood Pressure 134/59 L Pulse Oximetry 97 Oxygen Delivery 06/10/23 07:52 06/10/23 07:50 06/10/23 08:00 Temperature 98.1 F Pulse Rate 73 90 Respiratory Rate 17 Blood Pressure 138/51 L Pulse Oximetry 96 96 Oxygen Delivery Room Air 06/10/23 08:00 06/10/23 10:00 06/10/23 11:56 Temperature 97.9 F Pulse Rate 90 94 74 Respiratory Rate 17 16 Blood Pressure 153/65 H Pulse Oximetry 96 96 Oxygen Delivery Room Air 06/10/23 12:17 06/10/23 13:17 06/10/23 14:17 Temperature 98.3 F 97.5 F L 98.0 F Pulse Rate 75 77 82 Respiratory Rate 18 21 H 18 Blood Pressure 156/65 H 150/66 H 156/62 H Pulse Oximetry 96 98 98 Oxygen Delivery 06/10/23 15:10 06/10/23 12:01 06/10/23 15:57 Temperature 98.3 F 98.3 F Pulse Rate 84 75 80 Respiratory Rate 20 20 Blood P
[2023-06-10 17:08] LABS: Hematocrit 31.5 % (42.0-52.0); Hemoglobin 9.6 g/dL (14.0-18.0); Mean Corpuscular HGB Conc 30.5 g/dl (32-36); Mean Corpuscular Hemoglobin 28.5 pg (26-34); Mean Corpuscular Volume 93.5 fl (80-100); Platelet Count Result 287 k/mm3 (150-375); Red Blood Count 3.37 M/mm3 (4.6-6.20); Red Cell Distribution Width 15.9 % (11.5-14.5); White Blood Count 8.2 K/mm3 (4.5-10.0)
--- NOTE | 2023-06-10 18:51 | PM.IMPN ---
Progress Note: A&P Assessment and Plan (1) Hemorrhagic ascites: Code(s): R18.8 - Other ascites Status: Acute (2) Abdominal ascites: Code(s): R18.8 - Other ascites Status: Acute (3) VIN (acute kidney injury): Code(s): N17.9 - Acute kidney failure, unspecified Status: Acute (4) Anemia: Code(s): D64.9 - Anemia, unspecified Status: Acute (5) GI bleeding: Code(s): K92.2 - Gastrointestinal hemorrhage, unspecified Status: Acute (6) Liver cirrhosis: Code(s): K74.60 - Unspecified cirrhosis of liver Status: Acute Plan 67M w/ PMH CAD s/p stent, HTN, HLD presented with blood tinged stool, abdominal ascites and LE swelling. Admitted on 06/09 for anemia and further workup. 1) anemia - unclear if chronic or acute. cirrhosis vs GI bleed vs AOCD? - history of blood tinged stool is suspect for hemorrhoids. GI consulted. he denies caffeine use, active alcohol abuse, he is prior smoker, he takes aspirin daily for his CAD and also takes Excedrin on occasion for headache. - avoid protonix for now as he has ascites, unless absolutely necessary - changed full diet to CLD, GI consulted. colonoscopy, unsure if will be inpatient or outpatient - received 1 unit PRBC on 06/10. recheck 9.3. goal >8 2) cirrhosis - this is new diagnosis to the patient. MELD score 18. needs hepatology referral as outpatient, hopefully GI will have someone to refer him to - denies blood transfusions before 1970. denies heavy alcohol use, was only social drinker before he retired in 2006. no family history of liver disease, denies hx of illicit drug abuse - check hepatitis labs, AFP, and a wide range of others. most of them are send outs. - lactdulose started on 06/10 3) hemorrhagic ascites/SBP - 5L out in ER of blood fluid. increased PMNs but related to the red cells. continue ceftriaxone. will need prophylactic bactrim ongoing as he is very high risk ARF - volume overload 2/2 fluid administration. give lasix 40mg IV x1 and CTM 4) VIN - likely has CKD, and likely related to cirrhosis. if worsens will need nephrology f/u. currently being diuresed. albumin challenge stopped early 2/2 ARF. discontinued lisinopril and coreg. - avoid protonix unless absolutely necessary since it can cause VIN 5) CAD - hold aspirin and beta rupali for now, restart as appropriate 6) hypocalcemia - mild, asymptomatic. improved on 06/10 - tums started on 06/10 FEN: CLD, saline lock IV GI prophylaxis: avoid for now DVT prophylaxis: SCD's only Lines: PIV Code Status: Full Code Dispo: stable More than 35 minutes spent on chart review, patient interaction and assessment and plan. Subjective Date/time seen: 06/10/23 18:51 Interval history: pt had 3 loose liquid BMs without blood, brown in color. he has no complaints otherwise. Review of Systems Review of Systems: All systems reviewed & are unremarkable except as noted in HPI and below Exam Const: General: comfortable and no acute distress Other: obese Eyes: Pupils: Equal, round and reactive pupils present Neck: Neck: supple Resp: Effort & Inspection: normal respiratory effort Auscultation: crackles Cardio: Rate: regular rate Rhythm: regular rhythm GI: Inspection: distended GI Palp: No Tenderness to palpation present (GI) Auscultation: normal bowel sounds Extrem: General: no edema Objective Data Vital Signs Vital Signs: Vital Signs - 24 hr 06/09/23 20:20 06/10/23 00:00 06/09/23 20:00 Temperature 97.7 F 98.2 F Pulse Rate 76 83 83 Respiratory Rate 22 H 18 Blood Pressure 140/56 L 136/70 Pulse Oximetry 96 97 Oxygen Delivery Oxygen Flow Rate 06/09/23 20:00 06/09/23 22:00 06/10/23 00:00 Temperature Pulse Rate 83 74 77 Respiratory Rate 18 Blood Pressure Pulse Oximetry 97 Oxygen Delivery Room Air Oxygen Flow Rate 06/10/23 02:00 06/10/23 04:00 06/10/23 04:18 Temperature 98.9 F Pulse Rate 69
[2023-06-10] MEDS: FUROSEMIDE INJ 40 MG/4 ML VIAL IV PUSH (20:18)
[2023-06-10] MEDS: ATORVASTATIN 40 MG TABLET PO (20:20)
[2023-06-11] VITALS (11 sets, daily range): BP systolic 115–141; BP diastolic 60–66; PULSE 73–104; RESP 14–16; TEMP 36.8–36.9; O2SAT 95–100
[2023-06-11 05:01] LABS: Hematocrit 30.9 % (42.0-52.0); Hemoglobin 9.6 g/dL (14.0-18.0); Mean Corpuscular HGB Conc 31.1 g/dl (32-36); Mean Corpuscular Hemoglobin 28.2 pg (26-34); Mean Corpuscular Volume 90.9 fl (80-100); Mean Platelet Volume 10.6 fl (7.4-10.4); Platelet Count Result 295 k/mm3 (150-375); White Blood Count 8.6 K/mm3 (4.5-10.0)
[2023-06-11 05:12] LABS: Anion Gap 7 mmol/L (8-16); Blood Urea Nitrogen 17 mg/dL (9-20); Calcium 8.6 mg/dL (8.4-10.2); Carbon Dioxide 23 mmol/L (22-30); Chloride 104 mmol/L (98-107); Estimated CRCL calculation 41 ml/min; Estimated Glomerular Filt Rate 36; Glucose 106 mg/dL (65-110); Potassium 4.9 mmol/L (3.4-5.0); Sodium 134 mmol/L (137-145)
[2023-06-11] MEDS: MORPHINE SULFATE (*CRX) 4 MG/ML INJ IV PUSH (05:34)
[2023-06-11] MEDS: CALCIUM CARBONATE (TUMS) 500 MG (200 MG ELEMENTAL) 600 MG PO ×4 (05:37→23:38)
[2023-06-11] MEDS: LACTULOSE 20 GM/30 ML UDC PO (10:26)
[2023-06-11] MEDS: SPIRONOLACTONE 50 MG TABLET PO ×2 (10:26→18:45)
[2023-06-11] MEDS: polyethylene glycoL 3350 17 GM POWD.PACK PO (10:26)
--- NOTE | 2023-06-11 14:55 | WPDGIPROGNO ---
Progress Note: A&P Assessment and Plan (1) Acute on chronic anemia: Code(s): D64.9 - Anemia, unspecified Status: Acute Assessment and Plan: s/p 1 unit prbc, h/h stable since- no overt gib but had FOBT + probably multifactorial from cirrhosis, renal failure, blood in ascitesetc he will need egd evaluation to assess if portal hypertension, pud, varices- patient complaining of symptomatic reflux/dyspepsia using tums almost daily. Also colonoscopy- h/o constipation, last colonoscopy more than 10 years ago (2) Blood in stool: Code(s): K92.1 - Melena Status: Acute Assessment and Plan: h/h stable will assess with scopes early next week (3) Hemorrhagic ascites: Code(s): R18.8 - Other ascites Status: Acute Assessment and Plan: ? traumatic abdominal exam without pain tolerating diet, 2g na probably another paracentesis tomorrow to remove more fluid and repeat rbc/cell count. started on rocephin (elevated nuc cells but could be high because rbc) (4) Liver cirrhosis: Code(s): K74.60 - Unspecified cirrhosis of liver Status: Acute Assessment and Plan: work up in progress hepatitis negative (5) VIN (acute kidney injury): Code(s): N17.9 - Acute kidney failure, unspecified Status: Acute Assessment and Plan: started on diuresis because ascites- monitor renal function closely (6) Constipation: Code(s): K59.00 - Constipation, unspecified Status: Acute Assessment and Plan: colonoscopy soon Subjective Date/time seen: 06/11/23 14:55 Interval history: no changes, abdomen distension improved after paracentesis but still bloated- wonder if may need more denies rectal bleeding received one unit prbc Review of Systems Review of Systems: All systems reviewed & are unremarkable except as noted in HPI and below Exam Const: General: comfortable and no acute distress Other: obese HENMT: Face/Nose/Sinus: Normal nares present Eyes: Pupils: Equal, round and reactive pupils present Neck: Neck: supple Resp: Effort & Inspection: normal respiratory effort Auscultation: crackles Cardio: Rate: regular rate Rhythm: regular rhythm GI: Inspection: distended GI Palp: Yes Soft to palpation and No Tenderness to palpation present (GI) Auscultation: normal bowel sounds Skin: General skin exam: normal color Neuro: Speech: normal speech Motor exam (neuro): 5/5 motor strength present throughout Extrem: General: no edema Psych: Affect: normal affect Objective Data Vital Signs Vital Signs: Vital Signs - 24 hr 06/10/23 15:10 06/10/23 15:57 06/10/23 16:30 Temperature 98.3 F 98.3 F Pulse Rate 84 80 88 Respiratory Rate 20 20 21 H Blood Pressure 154/59 H 147/60 H Pulse Oximetry 93 94 93 Oxygen Delivery Nasal Cannula Oxygen Flow Rate 2 06/10/23 16:03 06/10/23 19:30 06/10/23 21:12 Temperature 98.0 F Pulse Rate 82 94 Respiratory Rate 20 Blood Pressure 163/73 H Pulse Oximetry 97 97 Oxygen Delivery Room Air Oxygen Flow Rate 06/10/23 20:06 06/10/23 20:00 06/11/23 00:00 Temperature Pulse Rate 83 85 Respiratory Rate Blood Pressure Pulse Oximetry 92 Oxygen Delivery Nasal Cannula Oxygen Flow Rate 2 06/11/23 04:03 06/11/23 04:10 Temperature 98.5 F Pulse Rate 81 80 Respiratory Rate 14 Blood Pressure 141/66 H Pulse Oximetry 98 Oxygen Delivery Oxygen Flow Rate Intake/Output Intake/Output: Intake & Output 06/08/23 06/09/23 06/10/23 06/11/23 23:59 23:59 23:59 23:59 Intake Total 1999 1900 1140 100 Output Total 5000 1250 2050 2100 Balance -3000 650 -910 -2000 Meds/Results Medications: Active Medications Generic Name Dose Route Start Last Admin Trade Name Marjyo PRN Reason Stop Dose Admin Acetaminophen 650 mg 06/08/23 15:55 06/10/23 08:55 Acetaminophen 325 Mg Tablet PO 650 mg Q4H PRN Administration Mild Pain (1-3) or Fever
--- NOTE | 2023-06-11 15:51 | PM.IMPN ---
Progress Note: A&P Assessment and Plan (1) Acute on chronic anemia: Code(s): D64.9 - Anemia, unspecified Status: Acute (2) Gallstones: Code(s): K80.20 - Calculus of gallbladder without cholecystitis without obstruction Status: Acute (3) Constipation: Code(s): K59.00 - Constipation, unspecified Status: Acute (4) Blood in stool: Code(s): K92.1 - Melena Status: Acute (5) Hemorrhagic ascites: Code(s): R18.8 - Other ascites Status: Acute (6) Abdominal ascites: Code(s): R18.8 - Other ascites Status: Acute (7) VIN (acute kidney injury): Code(s): N17.9 - Acute kidney failure, unspecified Status: Acute (8) Hyperkalemia: Code(s): E87.5 - Hyperkalemia Status: Acute Plan 67M w/ PMH CAD s/p stent, HTN, HLD presented with blood tinged stool, abdominal ascites and LE swelling. Admitted on 06/09 for anemia and further workup. 1) anemia - unclear if chronic or acute. cirrhosis vs GI bleed vs AOCD? - stable s/p 1 unit PRBC on 06/10. ctm. goal >8 - stool occult positive. denies caffeine use or alcohol abuse, but does take daily aspirin for CAD and plavix, and NSAID maybe. GI consulted and will go for EGD/colonoscopy. hold off on protonix in the meantime 2/2 to ascites and VIN, but this may be needed depending on EGD findings. he complained of ongoing acid reflux symptoms prior to admission 2) cirrhosis - this is new diagnosis to the patient. MELD score 18. needs hepatology referral as outpatient, hopefully GI will have someone to refer him to - denies blood transfusions before 1970. denies heavy alcohol use, was only social drinker before he retired in 2006. no family history of liver disease, denies hx of illicit drug abuse - AFP and ascitic fluid cytology pending. hepatitis serology negative - lactulose started on 06/10 3) hemorrhagic ascites - spironolactone started - s/p 5L out on admission with many red cells. also had PMN's but that's equivocal. may need another paracentesis - no evidence of SBP, ceftriaxone dc'ed. continue with bactrim daily for prophylaxis in a pt with cirrhosis, ascites, and kidney injury. avoid protonix if possible. monitor potassium intermittently 4) constipation - verbal complaints, he feels better after multiple BM's - continue lactulose, dc miralax 5) acute hypoxic respiratory failure - volume overload 2/2 fluid administration on 06/10. resolved s/o lasix 40mg iv x1. ct 6) VIN - likely has CKD, and likely related to cirrhosis. if worsens will need nephrology f/u. currently being diuresed. albumin challenge stopped early 2/2 ARF. discontinued lisinopril and coreg. 7) CAD - hold aspirin and plavix and beta rupali for now, restart as appropriate 8) hypocalcemia - mild, asymptomatic. resolved s/p tums started on 06/10 FEN: cardiac diet, saline lock IV GI prophylaxis: avoid for now DVT prophylaxis: SCD's only Lines: PIV Code Status: Full Code Dispo: stable More than 35 minutes spent on chart review, patient interaction and assessment and plan. Subjective Date/time seen: 06/11/23 15:51 Interval history: multiple loose stools, pt has no complaints other than feels his belly is big again, with fluid. denies sob or chest pain Review of Systems Review of Systems: All systems reviewed & are unremarkable except as noted in HPI and below Exam Const: General: comfortable and no acute distress Eyes: Pupils: Equal, round and reactive pupils present Neck: Neck: supple Resp: Effort & Inspection: normal respiratory effort Auscultation: clear to auscultation bilaterally Cardio: Rate: regular rate Rhythm: regular rhythm Heart sounds: no gallops, no murmurs and no rubs GI: Inspection: distended GI Palp: Yes Soft to palpation and No Tenderness to palpation present (GI) Auscultation: normal bowel sounds Other: shifting dullness and fluid wave negative Extrem: General: no edema Objective
[2023-06-11] MEDS: ACETAMINOPHEN 325 MG TABLET 650 MG PO (16:11)
[2023-06-11 19:49] LABS: Amylase Peritoneal Fluid <10 U/L
[2023-06-11] MEDS: ATORVASTATIN 40 MG TABLET PO (22:31)
[2023-06-12] VITALS (9 sets, daily range): BP systolic 129–148; BP diastolic 68–73; PULSE 60–107; RESP 16–20; TEMP 36–36.8; O2SAT 95–96
[2023-06-12] MEDS: ONDANSETRON INJ 4 MG/2 ML VIAL IV PUSH ×3 (05:32→23:21)
[2023-06-12 05:50] LABS: Hematocrit 37.2 % (42.0-52.0); Hemoglobin 11.4 g/dL (14.0-18.0); Mean Corpuscular HGB Conc 30.6 g/dl (32-36); Mean Corpuscular Hemoglobin 28.4 pg (26-34); Mean Corpuscular Volume 92.8 fl (80-100); Mean Platelet Volume 10.8 fl (7.4-10.4); Platelet Count Result 314 k/mm3 (150-375); Red Blood Count 4.01 M/mm3 (4.6-6.20); Red Cell Distribution Width 16.3 % (11.5-14.5); White Blood Count 11.7 K/mm3 (4.5-10.0)
[2023-06-12 06:07] LABS: Alanine Aminotransferase 16 U/L (6-50); Alkaline Phosphatase 153 U/L (38-126); Anion Gap 10 mmol/L (8-16); Aspartate Amino Transferase 35 U/L (17-59); Bilirubin,Total 0.7 mg/dL (0.2-1.3); Blood Urea Nitrogen 23 mg/dL (9-20); Calcium 9.9 mg/dL (8.4-10.2); Carbon Dioxide 21 mmol/L (22-30); Chloride 102 mmol/L (98-107); Estimated CRCL calculation 41 ml/min; Estimated Glomerular Filt Rate 36; Glucose 134 mg/dL (65-110); Magnesium 2.2 mg/dL (1.6-2.3); Potassium 5.2 mmol/L (3.4-5.0); Sodium 133 mmol/L (137-145)
[2023-06-12] MEDS: CALCIUM CARBONATE (TUMS) 500 MG (200 MG ELEMENTAL) 600 MG PO ×4 (06:12→23:21)
[2023-06-12 08:42] LABS: Procalcitonin 0.5 ng/mL
[2023-06-12] MEDS: SULFAMETHOXAZOLE/TRIMETHOPRIM 800/160 MG DS TABLET 1 TAB PO (10:23)
[2023-06-12] MEDS: LACTULOSE 20 GM/30 ML UDC PO (10:23)
[2023-06-12] MEDS: SPIRONOLACTONE 50 MG TABLET PO ×2 (10:24→18:57)
[2023-06-12] MEDS: ACETAMINOPHEN 325 MG TABLET 650 MG PO (10:24)
[2023-06-12 11:51] LABS: Mitochondrial (M2) Ab (IgG) <=20.0 U (<=20.0)
[2023-06-12 12:49] LABS: ANA Cascade Screen Negative (Negative)
[2023-06-12 13:36] LABS: Mean Platelet Volume 10.5 fl (7.4-10.4); Platelet Count Result 275 k/mm3 (150-375)
[2023-06-12 13:54] LABS: INR 1.2; Prothrombin Time 15.5 Seconds (11.1-14.7)
[2023-06-12 13:55] LABS: Partial Thromboplastin Time 30.8 SECONDS (22.3-36.8)
[2023-06-12 14:04] LABS: Add Urine Microscopic? YES; Appearance Urine Turbid (Clear); Bacteria Urine None Seen /hpf; Bilirubin Urine Negative (Negative); Blood Urine 2+ (Negative); Color Urine Dark Yellow (Yellow); Glucose Urine UA Negative (Negative); Granular Casts Urine Present /lpf; Hyaline Casts Urine Present /lpf; Ketones Urine Trace mg/dL (Negative); Leukocyte Esterase Ur Trace LEU/UL (NEGATIVE); Mucus Urine Present /lpf; Nitrate Urine Negative (Negative); Non Pathogenic Casts >20; Protein Urine 3+ mg/dL (Negative); Specific Grav Ur 1.025 (1.001-1.035); Squamous Epithelial Cell Urine Moderate /hpf (Few); Urobilinogen Urine 0.2 mg/dL (<2.0)
--- NOTE | 2023-06-12 14:06 | WPDGIPROGNO ---
Progress Note: A&P Assessment and Plan (1) Acute on chronic anemia: Code(s): D64.9 - Anemia, unspecified Status: Acute Assessment and Plan: s/p 1 unit prbc, h/h stable since- no overt gib but had FOBT + probably multifactorial from cirrhosis, renal failure, blood in ascites, etc will arrange egd to assess if portal hypertension, pud, varices- patient complaining of symptomatic reflux/dyspepsia using tums almost daily. And colonoscopy- h/o constipation, last colonoscopy more than [address] Locke returns tomorrow, patient prefer to get scopes sooner rather than later (2) Blood in stool: Code(s): K92.1 - Melena Status: Acute Assessment and Plan: h/h stable will assess with scopes in am, bowel prep this evening (3) Hemorrhagic ascites: Code(s): R18.8 - Other ascites Status: Acute Assessment and Plan: wonder if was traumatic abdominal exam without pain tolerating diet, 2g na repeat another paracentesis to remove more fluid and recheck again rbc/cell count- if rbc normal this time probably was traumatic, likewise cell count elevated because high rbc- patient received rocephin. (4) Liver cirrhosis: Code(s): K74.60 - Unspecified cirrhosis of liver Status: Acute Assessment and Plan: work up in progress hepatitis negative (5) VIN (acute kidney injury): Code(s): N17.9 - Acute kidney failure, unspecified Status: Acute Assessment and Plan: started on diuresis because ascites- monitor renal function closely, creatinine stable (6) Constipation: Code(s): K59.00 - Constipation, unspecified Status: Acute Assessment and Plan: colonoscopy Subjective Date/time seen: 06/12/23 14:06 Interval history: abdomen less distended since admission but still uncomfortable he is eating no overt gib Review of Systems Review of Systems: All systems reviewed & are unremarkable except as noted in HPI and below Exam Const: General: comfortable and no acute distress Other: obese HENMT: Face/Nose/Sinus: Normal nares present Eyes: Pupils: Equal, round and reactive pupils present Neck: Neck: supple Resp: Effort & Inspection: normal respiratory effort Auscultation: crackles Cardio: Rate: regular rate Rhythm: regular rhythm GI: Inspection: distended GI Palp: Yes Soft to palpation and No Tenderness to palpation present (GI) Auscultation: normal bowel sounds Skin: General skin exam: normal color Neuro: Speech: normal speech Motor exam (neuro): 5/5 motor strength present throughout Extrem: General: no edema Psych: Affect: normal affect Objective Data Vital Signs Vital Signs: Vital Signs - 24 hr 06/11/23 16:03 06/11/23 19:23 06/11/23 22:20 Temperature 98.2 F Pulse Rate 104 H 100 Respiratory Rate 16 Blood Pressure 115/60 Pulse Oximetry 95 Oxygen Delivery Room Air 06/11/23 20:00 06/12/23 00:00 06/12/23 04:00 Temperature Pulse Rate 80 87 85 Respiratory Rate Blood Pressure Pulse Oximetry Oxygen Delivery 06/12/23 04:42 Temperature 97.6 F Pulse Rate 60 Respiratory Rate 16 Blood Pressure 148/68 H Pulse Oximetry 96 Oxygen Delivery Intake/Output Intake/Output: Intake & Output 06/09/23 06/10/23 06/11/23 06/12/23 23:59 23:59 23:59 22:59 Intake Total 1900 1140 420 290 Output Total 1250 2050 2400 300 Balance 650 -910 -1980 -10 Meds/Results Medications: Active Medications Generic Name Dose Route Start Last Admin Trade Name Freq PRN Reason Stop Dose Admin Acetaminophen 650 mg 06/08/23 15:55 06/12/23 10:24 Acetaminophen 325 Mg Tablet PO 650 mg Q4H PRN Administration Mild Pain (1-3) or Fever Atorvastatin Calcium 40 mg 06/08/23 22:55 06/11/23 22:31 Atorvastatin 40 Mg Tablet PO 40 mg HS MINISTERIO Administration Bisacodyl 20 mg 06/12/23 16:00 Bisacodyl 5 Mg Tablet Ec PO 06/12/23 16:01 ONCE ONE Calcium Carbonate
[2023-06-12] MEDS: METOCLOPRAMIDE HCL INJ 10 MG/2 ML VIAL 5 MG IV PUSH (18:06)
[2023-06-12 18:55] LABS: Basophils Absolute Auto 0.1 K/mm3 (0.0-0.1); Basophils Percent Auto 0.6 % (0.2-1.2); Eosinophils Absolute Auto 0.1 K/mm3 (0-0.3); Eosinophils Percent Auto 0.6 % (0-4.4); Hematocrit 31.3 % (42.0-52.0); Hemoglobin 9.8 g/dL (14.0-18.0); Immature Granulocyte Absolute 0.04 K/mm3 (0.00-0.031); Immature Granulocyte Percent A 0.4 % (0-0.5); Lymphocytes Absolute Auto 1.31 K/mm3 (0.9-3.2); Lymphocytes Percent Auto 13.3 % (18.3-44.2); Mean Corpuscular HGB Conc 31.3 g/dl (32-36); Mean Corpuscular Hemoglobin 28.3 pg (26-34); Mean Corpuscular Volume 90.5 fl (80-100); Mean Platelet Volume 10.5 fl (7.4-10.4); Monocytes Absolute Auto 1.1 K/mm3 (0.1-0.6); Neutrophils Absolute Auto 7.3 K/mm3 (1.3-6.7); Neutrophils Percent Auto 74.1 % (45.5-73.1); Platelet Count Result 276 k/mm3 (150-375); Red Blood Count 3.46 M/mm3 (4.6-6.20); Red Cell Distribution Width 16.2 % (11.5-14.5); White Blood Count 9.8 K/mm3 (4.5-10.0)
[2023-06-12] MEDS: FUROSEMIDE INJ 40 MG/4 ML VIAL 20 MG IV PUSH (18:56)
[2023-06-12 19:07] LABS: Alanine Aminotransferase 15 U/L (6-50); Albumin Level 3.6 g/dL (3.5-5.1); Alkaline Phosphatase 153 U/L (38-126); Anion Gap 6 mmol/L (8-16); Aspartate Amino Transferase 33 U/L (17-59); Bilirubin,Total 0.6 mg/dL (0.2-1.3); Blood Urea Nitrogen 28 mg/dL (9-20); Calcium 9.7 mg/dL (8.4-10.2); Carbon Dioxide 24 mmol/L (22-30); Chloride 102 mmol/L (98-107); Estimated CRCL calculation 39 ml/min; Estimated Glomerular Filt Rate 33; Glucose 126 mg/dL (65-110); Lactate Dehydrogenase 187 U/L (120-246); Lipase 107 U/L (23-300); Potassium 4.9 mmol/L (3.4-5.0); Sodium 132 mmol/L (137-145)
[2023-06-12 19:17] LABS: Troponin I 0.028 ng/mL (0.000-0.034)
--- NOTE | 2023-06-12 19:28 | PM.IMPN ---
Progress Note: A&P Assessment and Plan (1) Acute on chronic anemia: Code(s): D64.9 - Anemia, unspecified Status: Acute (2) Gallstones: Code(s): K80.20 - Calculus of gallbladder without cholecystitis without obstruction Status: Acute (3) Constipation: Code(s): K59.00 - Constipation, unspecified Status: Acute (4) Blood in stool: Code(s): K92.1 - Melena Status: Acute (5) Hemorrhagic ascites: Code(s): R18.8 - Other ascites Status: Acute (6) Abdominal ascites: Code(s): R18.8 - Other ascites Status: Acute (7) VIN (acute kidney injury): Code(s): N17.9 - Acute kidney failure, unspecified Status: Acute (8) Hyperkalemia: Code(s): E87.5 - Hyperkalemia Status: Acute Plan 67M w/ PMH CAD s/p stent, HTN, HLD presented with blood tinged stool, abdominal ascites and LE swelling. Admitted on 06/09 for anemia and further workup. 1) anemia - unclear if chronic or acute. cirrhosis vs GI bleed vs AOCD - stable s/p 1 unit PRBC on 06/10. ctm. goal >8 - stool occult positive. denies caffeine use or alcohol abuse, but does take daily aspirin for CAD and plavix, and NSAID maybe. GI consulted and will go for EGD/colonoscopy. hold off on protonix in the meantime 2/2 to ascites and VIN, but this may be needed depending on EGD findings. he complained of ongoing acid reflux symptoms prior to admission. plan for colonoscopy/EGD, GI following 2) cirrhosis - this is new diagnosis to the patient. MELD score 18. needs hepatology referral as outpatient, hopefully GI will have someone to refer him to - denies blood transfusions before 1970. denies heavy alcohol use, was only social drinker before he retired in 2006. no family history of liver disease, denies hx of illicit drug abuse - AFP and ascitic fluid cytology pending. hepatitis serology negative - lactulose started on 06/10 3) hemorrhagic ascites - spironolactone started, and lasix added 06/12 - s/p 5L out on admission with many red cells. also had PMN's but that's equivocal. repeat paracentesis on 06/12 with 4L out, repeat ascitic fluid studies pending - on ceftriaxone since admission, continue with bactrim daily for prophylaxis on d/c in a pt with cirrhosis, ascites, and kidney injury. avoid protonix if possible. monitor potassium intermittently nausea, vomiting, leukocytosis, and bladder pain on 06/12 - on ceftriaxone, redraw UA. pending CXR and KUB. lipase negative. follow white count and procalcitonin - reglan added to zofran. f/u QTC intermittently 4) constipation - verbal complaints, he feels better after multiple BM's - continue lactulose, dc'ed miralax 5) acute hypoxic respiratory failure - volume overload 2/2 fluid administration on 06/10. resolved s/o lasix 40mg iv x1. ctm 6) VIN - likely has CKD, and likely related to cirrhosis. if worsens will need nephrology f/u. currently being diuresed. albumin challenge stopped early 2/2 ARF. discontinued lisinopril and coreg. HTN - dc'ed lisinopril, coreg, and coreg. spironolactone and lasix started. CTM 7) CAD - hold aspirin and plavix and coreg for now in light of ascites, restart as appropriate 8) hypocalcemia - mild, asymptomatic. resolved s/p tums started on 06/10 FEN: cardiac diet, saline lock IV GI prophylaxis: avoid for now DVT prophylaxis: SCD's only Lines: PIV Code Status: Full Code Dispo: stable More than 35 minutes spent on chart review, patient interaction and assessment and plan. Subjective Date/time seen: 06/12/23 19:28 Interval history: pt had a few episodes of nausea and vomiting w/o blood. complained of pain at bladder. otherwise denies cough or shortness of breath or chest pain Review of Systems Review of Systems: All systems reviewed & are unremarkable except as noted in HPI and below Exam Const: General: comfortable Eyes: Pupils: Equal, round and reactive pupils present Neck: Neck: supple Resp: Effort & Ins
[2023-06-12] MEDS: ATORVASTATIN 40 MG TABLET PO (20:09)
[2023-06-12 20:38] LABS: Appearance Peritoneal Fluid Bloody (Clear); Source Peritoneal Fluid Peritoneal Fluid
[2023-06-12 20:39] LABS: Color Peritoneal Fluid Red (Colorless); Nucleated Cells Peritoneal Flu 1030 /uL (0-500); RBC Peritoneal Fluid 320000 /uL (0-100000)
[2023-06-12 20:42] LABS: Lymphocytes Peritoneal Fluid 42 %; Neutrophils Peritoneal Fluid 32 % (0-25)
[2023-06-12 20:43] LABS: Macrophages Peritoneal Fluid 25 %; Monocytes Peritoneal Fluid 1 %
[2023-06-13] VITALS (11 sets, daily range): BP systolic 95–123; BP diastolic 50–67; PULSE 85–102; RESP 14–20; TEMP 36.1–36.5; O2SAT 93–96
--- NOTE | 2023-06-13 | ECG_ITS ---
Measurements Intervals [place] Rate: 79 P: 14 TX: 162 QRS: -17 QRSD: 169 T: 149 QT: 410 QTc: 471 Interpretive Statements SINUS RHYTHM LEFT BUNDLE BRANCH BLOCK ABNORMAL ECG COMPARED TO ECG 06/08/2023 12:05:26 SINUS RHYTHM NOW PRESENT LEFT BUNDLE-BRANCH BLOCK NOW PRESENT Electronically Signed On 06-13-2023 10:07:14 [employer] by Redd Robles D.O.
[2023-06-13 04:54] LABS: Glucose Peritoneal Fluid 36 mg/dL
[2023-06-13] MEDS: CALCIUM CARBONATE (TUMS) 500 MG (200 MG ELEMENTAL) 600 MG PO ×3 (05:55→17:33)
[2023-06-13 06:10] LABS: Basophils Absolute Auto 0.1 K/mm3 (0.0-0.1); Basophils Percent Auto 0.8 % (0.2-1.2); Eosinophils Absolute Auto 0.1 K/mm3 (0-0.3); Eosinophils Percent Auto 0.5 % (0-4.4); Hematocrit 32.1 % (42.0-52.0); Immature Granulocyte Absolute 0.04 K/mm3 (0.00-0.031); Immature Granulocyte Percent A 0.4 % (0-0.5); Lymphocytes Absolute Auto 1.46 K/mm3 (0.9-3.2); Mean Corpuscular HGB Conc 31.2 g/dl (32-36); Mean Corpuscular Hemoglobin 28.2 pg (26-34); Mean Corpuscular Volume 90.7 fl (80-100); Mean Platelet Volume 10.3 fl (7.4-10.4); Monocytes Absolute Auto 1.2 K/mm3 (0.1-0.6); Neutrophils Absolute Auto 6.9 K/mm3 (1.3-6.7); Neutrophils Percent Auto 71.3 % (45.5-73.1); Platelet Count Result 265 k/mm3 (150-375); Red Blood Count 3.54 M/mm3 (4.6-6.20); White Blood Count 9.7 K/mm3 (4.5-10.0)
[2023-06-13 06:26] LABS: Anion Gap 4 mmol/L (8-16); Blood Urea Nitrogen 29 mg/dL (9-20); Calcium 9.7 mg/dL (8.4-10.2); Carbon Dioxide 28 mmol/L (22-30); Chloride 101 mmol/L (98-107); Estimated CRCL calculation 33 ml/min; Estimated Glomerular Filt Rate 29; Glucose 110 mg/dL (65-110); Potassium 5.4 mmol/L (3.4-5.0); Sodium 133 mmol/L (137-145)
[2023-06-13 07:00] LABS: Procalcitonin 0.5 ng/mL
--- NOTE | 2023-06-13 07:49 | PM.IMPN ---
Progress Note: A&P Assessment and Plan (1) Acute on chronic anemia: Code(s): D64.9 - Anemia, unspecified Status: Acute (2) Gallstones: Code(s): K80.20 - Calculus of gallbladder without cholecystitis without obstruction Status: Acute (3) Constipation: Code(s): K59.00 - Constipation, unspecified Status: Acute (4) Blood in stool: Code(s): K92.1 - Melena Status: Acute (5) Hemorrhagic ascites: Code(s): R18.8 - Other ascites Status: Acute (6) Abdominal ascites: Code(s): R18.8 - Other ascites Status: Acute (7) VIN (acute kidney injury): Code(s): N17.9 - Acute kidney failure, unspecified Status: Acute (8) Hyperkalemia: Code(s): E87.5 - Hyperkalemia Status: Acute Plan 67M w/ PMH CAD s/p stent, HTN, HLD presented with blood tinged stool, abdominal ascites and LE swelling. Admitted on 06/09 for anemia and further workup. 1) anemia - unclear if chronic or acute. cirrhosis vs GI bleed vs AOCD - stable s/p 1 unit PRBC on 06/10. ctm. goal >8 - stool occult positive. denies caffeine use or alcohol abuse, but does take daily aspirin for CAD and plavix, and NSAID maybe. GI consulted plans EGD/colonoscopy tomorrow PPI depending on EGD findings. he complained of ongoing acid reflux symptoms prior to admission. 2) cirrhosis - this is new diagnosis to the patient. MELD score 18. needs hepatology referral as outpatient, GI management per GI - denies blood transfusions before 1970. denies heavy alcohol use, was only social drinker before he retired in 2006. no family history of liver disease, denies hx of illicit drug abuse - AFP and ascitic fluid cytology pending. hepatitis serology negative - lactulose started on 06/10 3) hemorrhagic ascites - spironolactone started, and lasix added 06/12 - s/p 5L out on admission with many red cells. also had PMN's but that's equivocal. repeat paracentesis on 06/12 with 4L out, repeat ascitic fluid studies pending - on ceftriaxone since admission, continue with bactrim daily for prophylaxis on d/c in a pt with cirrhosis, ascites, and kidney injury. avoid protonix if possible. monitor potassium intermittently nausea, vomiting, leukocytosis, and bladder pain on 06/12 - on ceftriaxone, redraw UA. pending CXR and KUB. lipase negative. follow white count and procalcitonin - reglan added to zofran. f/u QTC intermittently 4) constipation - verbal complaints, he feels better after multiple BM's - continue lactulose Resolves 5) acute hypoxic respiratory failure - volume overload 2/2 fluid administration on 06/10. resolved s/o lasix 40mg iv x1. ctm 6) VIN, hyperkalemia, - likely has CKD, and likely related to cirrhosis. albumin challenge stopped early 2/2 ARF. discontinued lisinopril and coreg. Kidney function is worse, potassium 5.4 Hold diuretic medication: furosemide and spironolactone HTN - dc'ed lisinopril, coreg, and coreg. CTM 7) CAD - hold aspirin and plavix and coreg for now in light of ascites, restart as appropriate 8) hypocalcemia - mild, asymptomatic. resolved s/p tums started on 06/10 FEN: cardiac diet, saline lock IV GI prophylaxis: avoid for now DVT prophylaxis: SCD's only Lines: PIV Code Status: Full Code Dispo: stable More than 35 minutes spent on chart review, patient interaction and assessment and plan. Subjective Date/time seen: 06/13/23 07:49 Interval history: pt had a few episodes of nausea and vomiting denies black emesis, black stool. Patient denies cough or shortness of breath or chest pain Exam Narrative: GENERAL: Chronically ill-appearing, well-nourished, and in no acute distress. HEAD: Normocephalic, atraumatic. EYES: PERRL and EOMI. ENT:? Mucous membranes moist. NECK: Supple. CHEST: Clear to auscultation.? No respiratory distress. HEART: regular rate and rhythm, no murmur or gallop. ABDOMEN: Soft, nontender, distended, prominent veins EXTREMITIES:
[2023-06-13] MEDS: LACTULOSE 20 GM/30 ML UDC PO (08:52)
[2023-06-13] MEDS: ONDANSETRON INJ 4 MG/2 ML VIAL IV PUSH (08:57)
[2023-06-13] MEDS: MORPHINE SULFATE (*CRX) 4 MG/ML INJ IV PUSH (08:57)
--- NOTE | 2023-06-13 09:29 | WPDGIPROGNO ---
Progress Note: A&P Assessment and Plan (1) Acute on chronic anemia: Code(s): D64.9 - Anemia, unspecified Status: Acute Assessment and Plan: Patient with anemia. Iron indices suggest chronic disease. Recently found to have stool Hemoccult positive. Plan for colonoscopy an EGD after preparation tomorrow. (2) Occult blood in stools: Code(s): R19.5 - Other fecal abnormalities Status: Acute Assessment and Plan: Occult blood noted in stool. No active bleeding identified. Endoscopy will be anticipated to exclude GI lesions. High-fiber diet suggested at present (3) Liver cirrhosis: Code(s): K74.60 - Unspecified cirrhosis of liver Status: Acute Assessment and Plan: patient with apparent cirrhosis on imaging studies. May be cryptogenic. Supportive care for now. Lab studies in progress. (4) Hemorrhagic ascites: Code(s): R18.8 - Other ascites Status: Acute Assessment and Plan: Patient with bloody ascites noted on 2 paracenteses. Cytology pending to exclude underlying malignancy. Will decrease diuretics as he is becoming azotemic. (5) Gallstones: Code(s): K80.20 - Calculus of gallbladder without cholecystitis without obstruction Status: Acute Assessment and Plan: Gallstones appear to be asymptomatic. Subjective Date/time seen: 06/13/23 09:29 Interval history: patient became nauseated last evening. Unable to tolerate preparation for endoscopy. We will reschedule these for tomorrow. Patient denies significant abdominal distension or pain at present. Review of Systems Review of Systems: Review of systems noncontributory. Patient appears somewhat confused this morning. Exam Narrative: Physical exam reveals patient to be alert. Vital signs stable. HEENT exam is unremarkable. Patient is anicteric. Lungs are clear to auscultation and percussion. Heart is without murmur or extra sounds. Abdomen bowel sounds present soft flat nontender. Objective Data Vital Signs Vital Signs: Vital Signs - 24 hr 06/12/23 14:00 06/12/23 12:02 06/12/23 16:04 Temperature 98.3 F Pulse Rate 81 91 107 H Respiratory Rate 16 Blood Pressure 129/73 Pulse Oximetry 95 Oxygen Delivery 06/12/23 10:30 06/12/23 20:00 06/12/23 21:53 Temperature 96.8 F L Pulse Rate 71 Respiratory Rate 20 Blood Pressure 142/69 H Pulse Oximetry 95 Oxygen Delivery Room Air Room Air 06/12/23 20:00 06/13/23 00:00 06/13/23 04:00 Temperature Pulse Rate 96 90 86 Respiratory Rate Blood Pressure Pulse Oximetry Oxygen Delivery 06/13/23 04:24 06/13/23 09:14 Temperature 97.6 F Pulse Rate 86 88 Respiratory Rate 20 16 Blood Pressure 123/59 L 113/53 L Pulse Oximetry 96 94 Oxygen Delivery Intake/Output Intake/Output: Intake & Output 06/11/23 06/12/23 06/12/23 06/13/23 00:59 00:59 23:59 23:59 Intake Total 240 Output Total Balance 240 Meds/Results Medications: Active Medications Generic Name Dose Route Start Last Admin Trade Name Freq PRN Reason Stop Dose Admin Acetaminophen 650 mg 06/08/23 15:55 06/12/23 10:24 Acetaminophen 325 Mg Tablet PO 650 mg Q4H PRN Administration Mild Pain (1-3) or Fever Atorvastatin Calcium 40 mg 06/08/23 22:55 06/12/23 20:09 Atorvastatin 40 Mg Tablet PO 40 mg HS MINISTERIO Administration Calcium Carbonate 600 mg 06/09/23 08:30 06/13/23 05:55 Calcium Carbonate (Tums) 500 Mg (200 Mg Elemental) PO 600 mg Q6HR MINISTERIO Administration Ceftriaxone Sodium 1 gm in 50 mls @ 100 mls/hr 06/12/23 18:00 06/12/23 18:56 Rocephin 1 Gm/Ns 50 Ml IVPB 100 mls/hr Q24H MINISTERIO Administration Lactulose 20 gm 06/10/23 09:00 06/13/23 08:52 Lactulose 20 Gm/30 Ml Udc PO 20 gm QAM MINISTERIO Administration Metoclopramide HCl 5 mg 06/12/23 17:44 06/12/23 18:06 Metoclopramide Hcl Inj 10 Mg/2 Ml Vial IV PUSH 5 mg TI
[2023-06-13] MEDS: PEG (High)/E-LYTE SOLN 4,000 ML BTL 4000 ML PO (10:54)
[2023-06-13 14:17] LABS: Ceruloplasmin 39 mg/dL (18-36)
--- NOTE | 2023-06-13 14:35 | PC.NURSE ---
All care, medications and assessments performed by Shayy Garcia, Student Nurse/[facility] has been completed under direct supervision of [employer] Designer or Nursing Staff. Charting has been reviewed and agree with same. Any questions or concerns presented by patient and/or family has been relayed to appropriate staff.
[2023-06-13] MEDS: ACETAMINOPHEN 325 MG TABLET 650 MG PO ×2 (15:43→22:29)
[2023-06-14] VITALS (14 sets, daily range): BP systolic 87–126; BP diastolic 33–64; PULSE 71–106; RESP 14–26; TEMP 36.1–36.6; O2SAT 93–100
--- NOTE | 2023-06-14 07:52 | PM.IMPN ---
Progress Note: A&P Assessment and Plan (1) Acute on chronic anemia: Code(s): D64.9 - Anemia, unspecified Status: Acute (2) Gallstones: Code(s): K80.20 - Calculus of gallbladder without cholecystitis without obstruction Status: Acute (3) Constipation: Code(s): K59.00 - Constipation, unspecified Status: Acute (4) Blood in stool: Code(s): K92.1 - Melena Status: Acute (5) Hemorrhagic ascites: Code(s): R18.8 - Other ascites Status: Acute (6) Abdominal ascites: Code(s): R18.8 - Other ascites Status: Acute (7) VIN (acute kidney injury): Code(s): N17.9 - Acute kidney failure, unspecified Status: Acute (8) Hyperkalemia: Code(s): E87.5 - Hyperkalemia Status: Acute Plan 67M w/ PMH CAD s/p stent, HTN, HLD presented with blood tinged stool, abdominal ascites and LE swelling. Admitted on 06/09 for anemia and further workup. 1) anemia - unclear if chronic or acute. cirrhosis vs GI bleed vs AOCD - stable s/p 1 unit PRBC on 06/10. ctm. goal >8 - stool occult positive. denies caffeine use or alcohol abuse, but does take daily aspirin for CAD and plavix, and NSAID maybe. GI consulted GI plans EGD/colonoscopy today PPI depending on EGD findings. he complained of ongoing acid reflux symptoms prior to admission. 2) cirrhosis - this is new diagnosis to the patient. MELD score 18. needs hepatology referral as outpatient, GI management per GI - denies blood transfusions before 1970. denies heavy alcohol use, was only social drinker before he retired in 2006. no family history of liver disease, denies hx of illicit drug abuse - AFP and ascitic fluid cytology pending. hepatitis serology negative - lactulose started on 06/10 3) hemorrhagic ascites - spironolactone started, and lasix added 06/12 - s/p 5L out on admission with many red cells. also had PMN's but that's equivocal. repeat paracentesis on 06/12 with 4L out, repeat ascitic fluid studies pending - on ceftriaxone since admission, continue with bactrim daily for prophylaxis on d/c in a pt with cirrhosis, ascites, and kidney injury. avoid protonix if possible. monitor potassium intermittently nausea, vomiting, leukocytosis, and bladder pain on 06/12 - on ceftriaxone, redraw UA. pending CXR and KUB. lipase negative. follow white count and procalcitonin - reglan added to zofran. f/u QTC intermittently 4) constipation - verbal complaints, he feels better after multiple BM's - continue lactulose Resolves 5) acute hypoxic respiratory failure - volume overload 2/2 fluid administration on 06/10. resolved s/o lasix 40mg iv x1. ctm 6) VIN, hyperkalemia, - likely has CKD, and likely related to cirrhosis. albumin challenge stopped early 2/2 ARF. discontinued lisinopril and coreg. Kidney function is worse, potassium 5.4 Hold diuretic medication: furosemide and spironolactone HTN - dc'ed lisinopril, coreg, and coreg. CTM 7) CAD - hold aspirin and plavix and coreg for now in light of ascites, restart as appropriate 8) hypocalcemia - mild, asymptomatic. resolved s/p tums started on 06/10 FEN: cardiac diet, saline lock IV GI prophylaxis: avoid for now DVT prophylaxis: SCD's only Lines: PIV Code Status: Full Code Dispo: stable More than 35 minutes spent on chart review, patient interaction and assessment and plan. Subjective Date/time seen: 06/14/23 07:52 Interval history: pt feels comfortable today, patient denies nausea and vomiting. Patient denies cough or shortness of breath or chest pain Exam Narrative: GENERAL: Chronically ill-appearing, well-nourished, and in no acute distress. HEAD: Normocephalic, atraumatic. EYES: PERRL and EOMI. ENT:? Mucous membranes moist. NECK: Supple. CHEST: Clear to auscultation.? No respiratory distress. HEART: regular rate and rhythm, no murmur or gallop. ABDOMEN: Soft, nontender, distended, prominent veins EXTREMITIES: Normal rang
[2023-06-14 09:00] LABS: Basophils Absolute Auto 0.1 K/mm3 (0.0-0.1); Basophils Percent Auto 0.8 % (0.2-1.2); Eosinophils Absolute Auto 0.1 K/mm3 (0-0.3); Eosinophils Percent Auto 1.6 % (0-4.4); Hematocrit 34.3 % (42.0-52.0); Hemoglobin 10.5 g/dL (14.0-18.0); Immature Granulocyte Absolute 0.04 K/mm3 (0.00-0.031); Immature Granulocyte Percent A 0.5 % (0-0.5); Lymphocytes Absolute Auto 1.34 K/mm3 (0.9-3.2); Lymphocytes Percent Auto 15.3 % (18.3-44.2); Mean Corpuscular HGB Conc 30.6 g/dl (32-36); Mean Corpuscular Hemoglobin 28.3 pg (26-34); Mean Corpuscular Volume 92.5 fl (80-100); Mean Platelet Volume 10.5 fl (7.4-10.4); Monocytes Absolute Auto 1.1 K/mm3 (0.1-0.6); Monocytes Percent Auto 12.2 % (2.6-8.5); Neutrophils Absolute Auto 6.1 K/mm3 (1.3-6.7); Neutrophils Percent Auto 69.6 % (45.5-73.1); Platelet Count Result 265 k/mm3 (150-375); Red Blood Count 3.71 M/mm3 (4.6-6.20); Red Cell Distribution Width 16.2 % (11.5-14.5); White Blood Count 8.7 K/mm3 (4.5-10.0)
[2023-06-14] MEDS: SODIUM CHLORIDE 0.9% IV 1,000 ML 100 ML IV CONT (09:06)
[2023-06-14] MEDS: ACETAMINOPHEN 325 MG TABLET 650 MG PO (09:12)
[2023-06-14 09:14] LABS: Anion Gap 8 mmol/L (8-16); Blood Urea Nitrogen 34 mg/dL (9-20); Calcium 9.1 mg/dL (8.4-10.2); Carbon Dioxide 25 mmol/L (22-30); Chloride 101 mmol/L (98-107); Estimated CRCL calculation 29 ml/min; Estimated Glomerular Filt Rate 24; Glucose 100 mg/dL (65-110); Potassium 4.9 mmol/L (3.4-5.0); Sodium 134 mmol/L (137-145)
--- NOTE | 2023-06-14 12:51 | PDONCCN ---
[facility] - Date of Consult Date/Time: 06/14/23 12:51 Requesting Physician: Alexandra Hanson DO Primary Care Provider: UNKNOWN,DOCTOR - Consult Narrative Reason for consult: Metastatic adenocarcinoma Narrative: Frank Chao III is a 67 year old male with history of coronary artery disease, hypertension, hyperlipidemia came into the hospital with generalized weakness. He was having some intermittent constipation with pinkish colored blood. He denies any abdominal pain. Denies any weight loss. He was complaining of difficulty urination. Patient had paracentesis with 5 L of fluid removed and cytology came back positive for adenocarcinoma. Labs showed hemoglobin of 7.6. GFR was 29% and iron studies showed iron level of 38 with iron saturation 21%. CT scan of abdomen and pelvis showed liver cirrhosis with large amount of ascites along with mild cardiomegaly and nonspecific stranding throughout the greater omentum could represent edema. No definite nodularity all load differential would include peritoneal implants. He denies any previous history of malignancy. Review of Systems - Review of Systems All systems reviewed & are unremarkable except as noted in [facility] and [facility] Medical History: Medical History (This Medical Record has been edited. Action required.) Acute on chronic anemia Coronary artery disease Hypercholesterolemia Hypertension Myocardial infarction Surgical History: Surgical History (This Medical Record has been edited. Action required.) H/O cardiac catheterization Bare-metal stent to proximal LAD 03/2014. - Social History Social History: Social History (This Medical Record has been edited. Action required.) Alcohol Use: Alcohol intake: never Substance Use: Substance use: never Others: Spiritual care concerns: No Smoking Status: Smoking status: Current every day smoker Tobacco type: cigarettes Smoking Pack-years: Smoking packs per day: 1 Smoking cigarettes per day: 20.0 Years smoked: 47 Smoking pack-years: 47.00 Social Determinants of Health: Has the Lack of Transportation Kept You From Medical Appointments or From Getting Medications?: No Within the Past 12 Months, Were You Worried Whether Your Food Would Run Out Before You Got Money to Buy More?: Never True What is Your Housing Situation Today?: I Have Housing Are You Worried That in the Next 2 Months, You May Not Have Your Own Housing to Live In?: No Do You Have Trouble Paying Your Heating Or Electricity Bill?: No Do You Have Trouble Paying For Medicines?: No Are You Currently Unemployed and Looking for Work?: No Highest Level of Education Completed: Grade School Do You Have Trouble With Childcare or the Care of a Family Member?: No Exam - Vital Signs Vital Signs - 24 hr 06/13/23 14:24 06/13/23 15:44 06/13/23 16:00 Temperature 36.5 C Pulse Rate 102 H 102 H 85 Respiratory Rate 18 14 Blood Pressure 102/61 95/50 L Pulse Oximetry 95 93 Oxygen Delivery 06/13/23 20:47 06/13/23 20:00 06/14/23 03:12 Temperature 36.1 C L 36.4 C Pulse Rate 92 84 Respiratory Rate 20 20 Blood Pressure 103/67 117/61 Pulse Oximetry 96 94 Oxygen Delivery Room Air 06/13/23 20:00 06/14/23 00:00 06/14/23 04:00 Temperature Pulse Rate 88 90 75 Respiratory Rate Blood Pressure Pulse Oximetry Oxygen Delivery - Exam HEENT: EOMI, PERRLA, mucous membranes moist and pink Neck: supple Lungs: clear to auscultation, normal air movement Heart: no murmurs, gallops, or rubs, regular rhythm, regular rate Abdomen: abdomen soft, normal bowel sounds, distended Extremities: normal pulses Neurological: normal speech Psychological: mental status NL, mood NL - Lab Results Laboratory Last Values WBC 8.7 K/mm3 (4.5-10.0) 06/14/23 08:49 RBC 3.71 M/mm3 (4.6-6.20) L 06/14/23 08:49 Hgb 10.5 g/dL (14.0-18.0) L 06/14
--- NOTE | 2023-06-14 12:59 | PC.NURSE ---
On 06/14/23, the student, [Corrina Conklin], provided care and completed [facility] documentation on this patient. I have reviewed the student's documentation and agree with the findings.
[2023-06-14 13:32] LABS: Albumin Peritoneal Fluid 1.4 g/dL
[2023-06-14 13:38] LABS: Carcinoembryonic Antigen 14.6 ng/mL (0.0-3.0)
[2023-06-14] MEDS: LACTATED RINGERS 1,000 ML 150 ML IV CONT (14:21)
--- NOTE | 2023-06-14 14:36 | WPDANESEPPF ---
Anes - Initial Pre Proc Eval Procedure: Operation Date: 06/14/23 14:30 Proposed Procedures p Esophagogastroduodenoscopy & Colonoscopy - Jerardo Locke MD Date/Time: 06/14/23 14:36 Surgeon: Alexandra Hanson DO Pre Op Diagnosis: Liver Cirrhosis,GI Bleeding Patient Data Age: 67 Gender: M Height: 1.78 m Weight: 98 kg Last Vital Signs Temp 96.9 F L 06/14/23 14:22 Pulse 92 06/14/23 14:22 Resp 18 06/14/23 14:22 BP 126/64 06/14/23 14:22 Pulse Ox 100 06/14/23 14:22 O2 Del Method Room Air 06/14/23 14:22 O2 Flow Rate 2 06/11/23 10:30 Allergies Allergy/AdvReac Type Severity Reaction Status Date / Time No Known Allergies Allergy Verified 06/09/23 09:09 Home Medications Medication Instructions Recorded Confirmed Type atorvastatin 40 mg tablet 40 mg PO HS 06/08/23 06/08/23 History carvedilol 6.25 mg tablet 6.25 mg PO BID 06/08/23 06/08/23 History clopidogrel 75 mg tablet 75 mg PO DAILY 06/08/23 06/08/23 History lisinopril 5 mg tablet 5 mg PO BID 06/08/23 06/08/23 History Laboratory Tests 06/08/23 06/14/23 06/14/23 15:00 08:43 08:49 WBC 8.7 K/mm3 (4.5-10.0) RBC 3.71 L M/mm3 (4.6-6.20) Hgb 10.5 L g/dL (14.0-18.0) Hct 34.3 L % (42.0-52.0) MCV 92.5 fl (80-100) MCH 28.3 pg (26-34) MCHC 30.6 L g/dl (32-36) RDW 16.2 H % (11.5-14.5) Plt Count 265 k/mm3 (150-375) MPV 10.5 H fl (7.4-10.4) Immature Gran % (Auto) 0.5 % (0-0.5) Neut % (Auto) 69.6 % (45.5-73.1) Lymph % (Auto) 15.3 L % (18.3-44.2) Duval % (Auto) 12.2 H % (2.6-8.5) Eos % (Auto) 1.6 % (0-4.4) Baso % (Auto) 0.8 % (0.2-1.2) Lymph # (Auto) 1.34 K/mm3 (0.9-3.2) [place] # (Auto) 1.1 H K/mm3 (0.1-0.6) Eos # (Auto) 0.1 K/mm3 (0-0.3) Baso # (Auto) 0.1 K/mm3 (0.0-0.1) Abs Immat Gran (auto) 0.04 H K/mm3 (0.00-0.031) Absolute Neuts (auto) 6.1 K/mm3 (1.3-6.7) Absolute Nucleated RBC 0.0 K/mm3 (0.0-0.012) Nucleated RBC % 0.0 % (0.0-0.2) Sodium 134 L mmol/L (137-145) Potassium 4.9 mmol/L (3.4-5.0) Chloride 101 mmol/L (98-107) Carbon Dioxide 25 mmol/L (22-30) Anion Gap 8 mmol/L (8-16) BUN 34 H mg/dL (9-20) Creatinine 2.70 H mg/dL (0.7-1.3) Estim Creat Clear Calc 29 ml/min Estimated GFR 24 L (59 - ) Glucose 100 mg/dL (65-110) Calcium 9.1 mg/dL (8.4-10.2) Carcinoembryonic Ag 14.6 H ng/mL (0.0-3.0) Peritoneal Albumin 1.4 g/dL Patient hx anesthesia problems: none Family hx anesthesia problems: none Results Review: All pre-operative results and documents have been reviewed as part of the pre-operative evaluation. [facility] Past Medical History Medical History (Updated 06/14/23 @ 12:55 by Jorge Gandhi MD) Acute on chronic anemia Coronary artery disease Hypercholesterolemia Hypertension Myocardial infarction Surgical History Surgical History (Updated 06/14/23 @ 12:55 by Jorge Gandhi MD) H/O cardiac catheterization Bare-metal stent to proximal LAD 03/2014. Social History Social History (System 06/09/23 @ 09:09 by Linda Hobbs) Smoking packs per day: 1 Smoking cigarettes per day: 20.0 Years smoked: 47 Smoking pack-years: 47.00 Smoking status: Current every day smoker Tobacco type: cigarettes Alcohol intake: never Substance use: never Lack of Transportation: No Lack of Food: Never True Current Housing: I Have Housing Concerned About Future Housing: No Difficulty Paying Gas/Electric Bills: No Difficulty Paying for Meds: No Currently Unemployed: No Education: Grade School Difficulty w/ Childcare or Family Care: No Spiritual care concerns: No Anes -
--- NOTE | 2023-06-14 15:38 | SUR.OPER ---
EGD ended 1528, colonoscopy started 1534
[2023-06-14] MEDS: CALCIUM CARBONATE (TUMS) 500 MG (200 MG ELEMENTAL) 600 MG PO (17:20)
[2023-06-14] MEDS: PANTOPRAZOLE 40 MG TABLET PO (20:15)
[2023-06-14] MEDS: ATORVASTATIN 40 MG TABLET PO (20:15)
[2023-06-15] VITALS (9 sets, daily range): BP systolic 133–134; BP diastolic 66–72; PULSE 79–93; RESP 18; TEMP 36.4–36.8; O2SAT 95–97; BMI 31.8
[2023-06-15] MEDS: CALCIUM CARBONATE (TUMS) 500 MG (200 MG ELEMENTAL) 600 MG PO ×4 (00:16→17:27)
[2023-06-15] MEDS: SODIUM CHLORIDE 0.9% IV 1,000 ML 100 ML IV CONT ×4 (00:17→23:45)
[2023-06-15 05:18] LABS: Basophils Absolute Auto 0.1 K/mm3 (0.0-0.1); Basophils Percent Auto 0.8 % (0.2-1.2); Eosinophils Absolute Auto 0.1 K/mm3 (0-0.3); Eosinophils Percent Auto 0.6 % (0-4.4); Hematocrit 31.6 % (42.0-52.0); Hemoglobin 9.4 g/dL (14.0-18.0); Immature Granulocyte Absolute 0.03 K/mm3 (0.00-0.031); Immature Granulocyte Percent A 0.4 % (0-0.5); Lymphocytes Absolute Auto 1.19 K/mm3 (0.9-3.2); Lymphocytes Percent Auto 14.2 % (18.3-44.2); Mean Corpuscular HGB Conc 29.7 g/dl (32-36); Mean Platelet Volume 10.8 fl (7.4-10.4); Monocytes Absolute Auto 0.9 K/mm3 (0.1-0.6); Monocytes Percent Auto 10.9 % (2.6-8.5); Neutrophils Absolute Auto 6.1 K/mm3 (1.3-6.7); Neutrophils Percent Auto 73.1 % (45.5-73.1); Platelet Count Result 231 k/mm3 (150-375); Red Blood Count 3.36 M/mm3 (4.6-6.20); Red Cell Distribution Width 16.1 % (11.5-14.5); White Blood Count 8.4 K/mm3 (4.5-10.0)
[2023-06-15 05:32] LABS: Anion Gap 6 mmol/L (8-16); Blood Urea Nitrogen 30 mg/dL (9-20); Calcium 8.6 mg/dL (8.4-10.2); Carbon Dioxide 24 mmol/L (22-30); Chloride 103 mmol/L (98-107); Estimated CRCL calculation 33 ml/min; Estimated Glomerular Filt Rate 29; Glucose 103 mg/dL (65-110); Potassium 4.8 mmol/L (3.4-5.0); Sodium 133 mmol/L (137-145)
[2023-06-15 06:04] LABS: Giant Platelets Present; Platelet Estimate Adequate (Adequate)
[2023-06-15 06:05] LABS: Burr Cells 1+ (NORMAL); Platelet Clumps Present; Schistocytes None Seen (NORMAL)
--- NOTE | 2023-06-15 08:06 | WPDGIPROGNO ---
Progress Note: A&P Assessment and Plan (1) Malignant ascites: Code(s): R18.0 - Malignant ascites Status: Acute Assessment and Plan: ascitic fluid cytology reveals adenocarcinoma. Additional studies raise the question of esophageal lesion. Esophagitis noted by endoscopy. But no specific biopsies were done is grossly this appeared most consistent with acid reflux. Will plan follow-up EGD on for additional biopsies. Low-salt diet may be helpful as patient also has cirrhosis by imaging studies. CEA level elevated. Alpha fetoprotein level pending. (2) Duodenal ulcer: Code(s): K26.9 - Duodenal ulcer, unspecified as acute or chronic, without hemorrhage or perforation Status: Acute Assessment and Plan: Duodenal ulcer identified at time of endoscopy. May contribute to anemia anemia also likely on the basis of chronic disease. Patient will remain on PPI therapy. Advance diet as tolerated. (3) Erosive esophagitis: Code(s): K22.10 - Ulcer of esophagus without bleeding Status: Acute (4) Liver cirrhosis: Code(s): K74.60 - Unspecified cirrhosis of liver Status: Acute Assessment and Plan: Cirrhosis evident on imaging studies. May contribute to his ascitic fluid. Supportive care advised. Subjective Date/time seen: 06/15/23 08:06 Interval history: Patient alert. Appears more comfortable today. States he has no appetite. Denies abdominal pain. Review of Systems Review of Systems: Review of systems noncontributory. Exam Narrative: Physical exam reveals patient to be alert. He is oriented x3. Vital signs stable. HEENT exam reveals no icterus. Lungs are clear. Heart without murmur. Abdomen is soft nontender. Minimal distention. Objective Data Vital Signs Vital Signs: Vital Signs - 24 hr 06/14/23 13:15 06/14/23 12:00 06/14/23 09:06 Temperature 97.9 F Pulse Rate 78 76 Respiratory Rate 14 Blood Pressure 125/55 L Pulse Oximetry 94 Oxygen Delivery Room Air 06/14/23 14:22 06/14/23 15:53 06/14/23 16:00 Temperature 96.9 F L Pulse Rate 92 85 Respiratory Rate 18 19 Blood Pressure 126/64 87/33 L 105/48 L Pulse Oximetry 100 93 Oxygen Delivery Room Air Room Air 06/14/23 16:03 06/14/23 16:13 06/14/23 16:40 Temperature 97.9 F Pulse Rate 72 71 77 Respiratory Rate 26 H 23 H 16 Blood Pressure 96/42 L 112/58 L 126/57 L Pulse Oximetry 100 95 94 Oxygen Delivery Room Air Room Air 06/14/23 19:39 06/14/23 20:00 06/15/23 06:18 Temperature 97.6 F 97.6 F Pulse Rate 79 83 Respiratory Rate 20 18 Blood Pressure 115/50 L 133/72 Pulse Oximetry 94 95 Oxygen Delivery Room Air 06/14/23 20:00 06/15/23 00:00 06/15/23 04:00 Temperature Pulse Rate 106 H 91 89 Respiratory Rate Blood Pressure Pulse Oximetry Oxygen Delivery Intake/Output Intake/Output: Intake & Output 06/12/23 06/13/23 06/14/23 06/15/23 23:59 23:59 23:59 23:59 Intake Total 680 1425 1600 Output Total 800 Balance 680 1425 800 Meds/Results Medications: Active Medications Generic Name Dose Route Start Last Admin Trade Name Freq PRN Reason Stop Dose Admin Acetaminophen 650 mg 06/08/23 15:55 06/14/23 09:12 Acetaminophen 325 Mg Tablet PO 650 mg Q4H PRN Administration Mild Pain (1-3) or Fever Atorvastatin Calcium 40 mg 06/08/23 22:55 06/14/23 20:15 Atorvastatin 40 Mg Tablet PO 40 mg HS MINISTERIO Administration Calcium Carbonate 600 mg 06/09/23 08:30 06/15/23 06:19 Calcium Carbonate (Tums) 500 Mg (200 Mg Elemental) PO 600 mg Q6HR MINISTERIO Administration Ceftriaxone Sodium 1 gm in 50 mls @ 100 mls/hr 06/12/23 18:00 06/14/23 17:50 Rocephin 1 Gm/Ns 50 Ml IVPB Infused Q24H MINISTERIO Infusion Sodium Chloride 1,000 mls @ 125 mls/hr 06/14/23 07:55 06/15/23 06:18 Normal Saline Iv IV CONT 100 mls/hr .Q8H MINISTERIO Administration Lactulose 20 gm 06/10/23 09:00
[2023-06-15] MEDS: PANTOPRAZOLE 40 MG TABLET PO ×2 (08:49→20:23)
[2023-06-15] MEDS: LACTULOSE 20 GM/30 ML UDC PO (08:51)
--- NOTE | 2023-06-15 08:55 | PM.IMPN ---
Progress Note: A&P Assessment and Plan (1) Acute on chronic anemia: Code(s): D64.9 - Anemia, unspecified Status: Acute (2) Gallstones: Code(s): K80.20 - Calculus of gallbladder without cholecystitis without obstruction Status: Acute (3) Constipation: Code(s): K59.00 - Constipation, unspecified Status: Acute (4) Blood in stool: Code(s): K92.1 - Melena Status: Acute (5) Hemorrhagic ascites: Code(s): R18.8 - Other ascites Status: Acute (6) Abdominal ascites: Code(s): R18.8 - Other ascites Status: Acute (7) VIN (acute kidney injury): Code(s): N17.9 - Acute kidney failure, unspecified Status: Acute (8) Hyperkalemia: Code(s): E87.5 - Hyperkalemia Status: Acute Plan 67M w/ PMH CAD s/p stent, HTN, HLD presented with blood tinged stool, abdominal ascites and LE swelling. Admitted on 06/09 for anemia and further workup. 1) anemia due to duodenal ulcer - unclear if chronic or acute. cirrhosis vs GI bleed vs AOCD - stable s/p 1 unit PRBC on 06/10. ctm. goal >8 - stool occult positive. GI consulted GI plans EGD for biopsy PPI therapy per GI cirrhosis - this is new diagnosis to the patient. GI management per GI - denies blood transfusions before 1970. denies heavy alcohol use, was only social drinker before he retired in 2006. no family history of liver disease, denies hx of illicit drug abuse - AFP pending, and ascitic fluid cytology reveals metastatic adenocarcinoma hepatitis serology negative - lactulose started on 06/10 GI and oncologist on board 3) malignant ascites - spironolactone started, and lasix added 06/12 - s/p 5L out on admission with many red cells. also had PMN's but that's equivocal. repeat paracentesis on 06/12 with 4L out, repeat ascitic fluid studies pending - on ceftriaxone since admission for possible SBP, continue with bactrim daily for prophylaxis on d/c in a pt with cirrhosis, ascites, ascitic fluid cytology reveals adenocarcinoma. 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 Consult heme oncologist UTI leukocytosis, and bladder pain on 06/12 - on ceftriaxone, UA shows pyuria and microscopic hematuria Follow urine culture, no growth so so far 4) constipation - verbal complaints, he feels better after multiple BM's - continue lactulose Resolves 5) acute hypoxic respiratory failure - volume overload 2/2 fluid administration on 06/10. resolved s/o lasix 40mg iv x1. ctm 6) VIN, hyperkalemia, - likely has CKD, and likely related to cirrhosis. albumin challenge stopped early 2/2 ARF. discontinued lisinopril and coreg. Kidney function is worse, potassium 5.4 Hold diuretic medication: furosemide and spironolactone HTN - dc'ed lisinopril, coreg, and coreg. CTM 7) CAD - hold aspirin and plavix and coreg for now in light of ascites, restart as appropriate 8) hypocalcemia - mild, asymptomatic. resolved s/p tums started on 06/10 FEN: cardiac diet, saline lock IV GI prophylaxis: avoid for now DVT prophylaxis: SCD's only Lines: PIV Code Status: Full Code Dispo: stable More than 35 minutes spent on chart review, patient interaction and assessment and plan. Subjective Date/time seen: 06/15/23 08:55 Interval history: Patient denies abdomen pain, still has general weakness. Per orally intake, denies chest pain, shortness of breath. No event overnight Exam Narrative: GENERAL: Chronically ill-appearing, well-nourished, and in no acute distress. HEAD: Normocephalic, atraumatic. EYES: PERRL and EOMI. ENT:? Mucous membranes moist. NECK: Supple. CHEST: Clear to auscultation.? No respiratory distress. HEART: regular rate and rhythm, no murmur or gallop. ABDOMEN: Soft, nontender, distended, prominent veins EXTREMITIES: Normal range of motion.? 2+ edema. SKIN: Warm, dry, no rash. NEURO:Alert and oriented x3. PSYCH: Normal mood and affect. ? Objective Data Vital Sig
[2023-06-15] MEDS: cefTRIAXone 2 GM/NS 100 ML 2 GM/100 ML BAG IVPB (14:58)
[2023-06-15 16:27] LABS: Alpha Fetoprotein Tumor Marker 80.4 ng/mL (<6.1)
[2023-06-15] MEDS: ATORVASTATIN 40 MG TABLET PO (20:23)
[2023-06-15] MEDS: MORPHINE SULFATE (*CRX) 4 MG/ML INJ IV PUSH (20:55)
[2023-06-16] VITALS (13 sets, daily range): BP systolic 80–128; BP diastolic 49–67; PULSE 77–100; RESP 16–20; TEMP 35.7–36.3; O2SAT 96–100
[2023-06-16 07:10] LABS: Basophils Absolute Auto 0.1 K/mm3 (0.0-0.1); Basophils Percent Auto 1.3 % (0.2-1.2); Eosinophils Absolute Auto 0.1 K/mm3 (0-0.3); Eosinophils Percent Auto 1.4 % (0-4.4); Hemoglobin 8.7 g/dL (14.0-18.0); Immature Granulocyte Absolute 0.01 K/mm3 (0.00-0.031); Immature Granulocyte Percent A 0.2 % (0-0.5); Lymphocytes Absolute Auto 1.15 K/mm3 (0.9-3.2); Lymphocytes Percent Auto 18.1 % (18.3-44.2); Mean Corpuscular Hemoglobin 27.9 pg (26-34); Mean Corpuscular Volume 92.9 fl (80-100); Mean Platelet Volume 10.6 fl (7.4-10.4); Monocytes Absolute Auto 0.8 K/mm3 (0.1-0.6); Monocytes Percent Auto 12.1 % (2.6-8.5); Neutrophils Absolute Auto 4.3 K/mm3 (1.3-6.7); Neutrophils Percent Auto 66.9 % (45.5-73.1); Platelet Count Result 213 k/mm3 (150-375); Red Blood Count 3.12 M/mm3 (4.6-6.20); Red Cell Distribution Width 16.3 % (11.5-14.5); White Blood Count 6.4 K/mm3 (4.5-10.0)
[2023-06-16 07:19] LABS: Anion Gap 5 mmol/L (8-16); Blood Urea Nitrogen 24 mg/dL (9-20); Calcium 7.9 mg/dL (8.4-10.2); Carbon Dioxide 24 mmol/L (22-30); Chloride 104 mmol/L (98-107); Estimated CRCL calculation 41 ml/min; Estimated Glomerular Filt Rate 36; Glucose 107 mg/dL (65-110); Potassium 4.3 mmol/L (3.4-5.0); Sodium 133 mmol/L (137-145)
[2023-06-16] MEDS: SODIUM CHLORIDE 0.9% IV 1,000 ML 125 ML IV CONT ×3 (09:25→20:34)
--- NOTE | 2023-06-16 09:31 | PM.IMPN ---
Progress Note: A&P Assessment and Plan (1) Acute on chronic anemia: Code(s): D64.9 - Anemia, unspecified Status: Acute (2) Gallstones: Code(s): K80.20 - Calculus of gallbladder without cholecystitis without obstruction Status: Acute (3) Constipation: Code(s): K59.00 - Constipation, unspecified Status: Acute (4) Blood in stool: Code(s): K92.1 - Melena Status: Acute (5) Hemorrhagic ascites: Code(s): R18.8 - Other ascites Status: Acute (6) Abdominal ascites: Code(s): R18.8 - Other ascites Status: Acute (7) VIN (acute kidney injury): Code(s): N17.9 - Acute kidney failure, unspecified Status: Acute (8) Hyperkalemia: Code(s): E87.5 - Hyperkalemia Status: Acute Plan 67M w/ PMH CAD s/p stent, HTN, HLD presented with blood tinged stool, abdominal ascites and LE swelling. Admitted on 06/09 for anemia and further workup. 1) anemia due to duodenal ulcer - unclear if chronic or acute. cirrhosis vs GI bleed vs AOCD - stable s/p 1 unit PRBC on 06/10. ctm. goal >8 - stool occult positive. GI consulted GI performed EGD for biopsy PPI therapy per GI cirrhosis - this is new diagnosis to the patient. GI management per GI - denies blood transfusions before 1970. denies heavy alcohol use, was only social drinker before he retired in 2006. no family history of liver disease, denies hx of illicit drug abuse - AFP pending, and ascitic fluid cytology reveals metastatic adenocarcinoma hepatitis serology negative - lactulose started on 06/10 GI and oncologist on board 3) malignant ascites - spironolactone started, and lasix added 06/12 - s/p 5L out on admission with many red cells. also had PMN's but that's equivocal. repeat paracentesis on 06/12 with 4L out, repeat ascitic fluid studies pending - on ceftriaxone since admission for possible SBP, continue with bactrim daily for prophylaxis on d/c in a pt with cirrhosis, ascites, ascitic fluid cytology reveals adenocarcinoma. 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 resolved s/o lasix 40mg iv x1. ctm 6) VIN, hyperkalemia, - likely has CKD, and likely related to cirrhosis. albumin challenge stopped early 2/2 ARF. discontinued lisinopril and coreg. Kidney function is worse, potassium 5.4 Hold diuretic medication: furosemide and spironolactone HTN - dc'ed lisinopril, coreg, and coreg. CTM 7) CAD - hold aspirin and plavix and coreg for now in light of ascites, restart as appropriate 8) hypocalcemia - mild, asymptomatic. resolved s/p tums started on 06/10 FEN: cardiac diet, saline lock IV GI prophylaxis: avoid for now DVT prophylaxis: SCD's only Lines: PIV Code Status: Full Code Dispo: stable More than 35 minutes spent on chart review, patient interaction and assessment and plan. Subjective Date/time seen: 06/16/23 09:31 Interval history: I saw exam patient today when patient came back from EGD. Patient denies chest pain, shortness of breath, abdomen pain. Patient has no appetite. Exam Narrative: GENERAL: Chronically ill-appearing, well-nourished, and in no acute distress. HEAD: Normocephalic, atraumatic. EYES: PERRL and EOMI. ENT:? Mucous membranes moist. NECK: Supple. CHEST: Clear to auscultation.? No respiratory distress. HEART: regular rate and rhythm, no murmur or gallop. ABDOMEN: Soft, nontender, distended, prominent veins EXTREMITIES: Normal range of motion.? 2+ edema. SKIN: Warm, dry, no rash. NEURO:Alert and oriented x3. PSYCH: Normal mood a
--- NOTE | 2023-06-16 12:18 | WPDANESEPPF ---
Anes - Initial Pre Proc Eval Procedure: Operation Date: 06/14/23 14:30 Proposed Procedures p Esophagogastroduodenoscopy & Colonoscopy - Jerardo Locke MD Operation Date: 06/16/23 12:00 Proposed Procedures p Esophagogastroduodenoscopy - Jerardo Locke MD Date/Time: 06/16/23 12:18 Surgeon: Alexandra Hanson DO Pre Op Diagnosis: Liver Cirrhosis,GI Bleeding Patient Data Age: 67 Gender: M Height: 1.78 m Weight: 100.8 kg Last Vital Signs Temp 36.8 C 06/15/23 20:11 Pulse 83 06/16/23 08:00 Resp 18 06/15/23 20:11 BP 134/66 06/15/23 20:11 Pulse Ox 96 06/15/23 22:59 O2 Del Method Room Air 06/16/23 10:00 O2 Flow Rate 2 06/11/23 10:30 Allergies Allergy/AdvReac Type Severity Reaction Status Date / Time No Known Allergies Allergy Verified 06/09/23 09:09 Home Medications Medication Instructions Recorded Confirmed Type atorvastatin 40 mg tablet 40 mg PO HS 06/08/23 06/08/23 History carvedilol 6.25 mg tablet 6.25 mg PO BID 06/08/23 06/08/23 History clopidogrel 75 mg tablet 75 mg PO DAILY 06/08/23 06/08/23 History lisinopril 5 mg tablet 5 mg PO BID 06/08/23 06/08/23 History Laboratory Tests 06/09/23 06/16/23 05:06 06:57 WBC 6.4 K/mm3 (4.5-10.0) RBC 3.12 L M/mm3 (4.6-6.20) Hgb 8.7 L g/dL (14.0-18.0) Hct 29.0 L % (42.0-52.0) MCV 92.9 fl (80-100) MCH 27.9 pg (26-34) MCHC 30.0 L g/dl (32-36) RDW 16.3 H % (11.5-14.5) Plt Count 213 k/mm3 (150-375) MPV 10.6 H fl (7.4-10.4) Immature Gran % (Auto) 0.2 % (0-0.5) Neut % (Auto) 66.9 % (45.5-73.1) Lymph % (Auto) 18.1 L % (18.3-44.2) [place]ent % (Auto) 12.1 H % (2.6-8.5) Eos % (Auto) 1.4 % (0-4.4) Baso % (Auto) 1.3 H % (0.2-1.2) Lymph # (Auto) 1.15 K/mm3 (0.9-3.2) [place]ent # (Auto) 0.8 H K/mm3 (0.1-0.6) Eos # (Auto) 0.1 K/mm3 (0-0.3) Baso # (Auto) 0.1 K/mm3 (0.0-0.1) Abs Immat Gran (auto) 0.01 K/mm3 (0.00-0.031) Absolute Neuts (auto) 4.3 K/mm3 (1.3-6.7) Absolute Nucleated RBC 0.0 K/mm3 (0.0-0.012) Nucleated RBC % 0.0 % (0.0-0.2) Sodium 133 L mmol/L (137-145) Potassium 4.3 mmol/L (3.4-5.0) Chloride 104 mmol/L (98-107) Carbon Dioxide 24 mmol/L (22-30) Anion Gap 5 L mmol/L (8-16) BUN 24 H mg/dL (9-20) Creatinine 1.90 H mg/dL (0.7-1.3) Estim Creat Clear Calc 41 ml/min Estimated GFR 36 L (59 - ) Glucose 107 mg/dL (65-110) Calcium 7.9 L mg/dL (8.4-10.2) Alpha Fetoprotein 80.4 H ng/mL (<6.1) Patient hx anesthesia problems: none Family hx anesthesia problems: none Results Review: All pre-operative results and documents have been reviewed as part of the pre-operative evaluation. [facility] Past Medical History Medical History Acute on chronic anemia Coronary artery disease Hypercholesterolemia Hypertension Myocardial infarction Surgical History Surgical History H/O cardiac catheterization Bare-metal stent to proximal LAD 03/2014. Social History Social History Smoking packs per day: 1 Smoking cigarettes per day: 20.0 Years smoked: 47 Smoking pack-years: 47.00 Smoking status: Current every day smoker Tobacco type: cigarettes Alcohol intake: never Substance use: never Lack of Transportation: No Lack of Food: Never True Current Housing: I Have Housing Concerned About Future Housing: No Difficulty Paying Gas/Electric Bills: No Difficulty Paying for Meds: No Currently Unemployed: No Education: Grade School Difficulty w/ Childcare or Family Care: No Spiritual care concerns: No Anes - Eval Final PreProcedure Day of Pr
[2023-06-16] MEDS: LACTATED RINGERS 1,000 ML 150 ML IV CONT (12:23)
[2023-06-16 12:35] LABS: Hepatitis B Core Ab Total Nonreactive (Nonreactive)
[2023-06-16] MEDS: cefTRIAXone 2 GM/NS 100 ML 2 GM/100 ML BAG IVPB (14:04)
[2023-06-16] MEDS: ACETAMINOPHEN 325 MG TABLET 650 MG PO (14:06)
[2023-06-16] MEDS: LACTULOSE 20 GM/30 ML UDC PO (14:06)
[2023-06-16] MEDS: PANTOPRAZOLE 40 MG TABLET PO ×2 (14:06→20:36)
--- NOTE | 2023-06-16 14:50 | PC.NURSE ---
On 06/16/23, the student, [Benjamin Hanson], provided care and completed [facility] documentation on this patient. I have reviewed the student's documentation and agree with the findings.
[2023-06-16] MEDS: CALCIUM CARBONATE (TUMS) 500 MG (200 MG ELEMENTAL) 600 MG PO (17:26)
[2023-06-16] MEDS: ATORVASTATIN 40 MG TABLET PO (20:36)
[2023-06-17] VITALS (12 sets, daily range): BP systolic 115–141; BP diastolic 58–80; PULSE 78–115; RESP 16–22; TEMP 36.2–37.1; O2SAT 96–99
[2023-06-17] MEDS: SODIUM CHLORIDE 0.9% IV 1,000 ML 125 ML IV CONT ×3 (04:35→20:20)
[2023-06-17 06:45] LABS: Basophils Absolute Auto 0.1 K/mm3 (0.0-0.1); Basophils Percent Auto 0.9 % (0.2-1.2); Eosinophils Absolute Auto 0.1 K/mm3 (0-0.3); Eosinophils Percent Auto 1.3 % (0-4.4); Hematocrit 28.1 % (42.0-52.0); Hemoglobin 8.4 g/dL (14.0-18.0); Immature Granulocyte Absolute 0.03 K/mm3 (0.00-0.031); Immature Granulocyte Percent A 0.4 % (0-0.5); Lymphocytes Absolute Auto 0.99 K/mm3 (0.9-3.2); Lymphocytes Percent Auto 14.1 % (18.3-44.2); Mean Corpuscular HGB Conc 29.9 g/dl (32-36); Mean Corpuscular Hemoglobin 28.1 pg (26-34); Mean Platelet Volume 10.9 fl (7.4-10.4); Monocytes Absolute Auto 0.7 K/mm3 (0.1-0.6); Monocytes Percent Auto 10.4 % (2.6-8.5); Neutrophils Absolute Auto 5.1 K/mm3 (1.3-6.7); Neutrophils Percent Auto 72.9 % (45.5-73.1); Platelet Count Result 208 k/mm3 (150-375); Red Blood Count 2.99 M/mm3 (4.6-6.20); Red Cell Distribution Width 16.3 % (11.5-14.5)
[2023-06-17 06:54] LABS: Anion Gap 7 mmol/L (8-16); Blood Urea Nitrogen 19 mg/dL (9-20); Calcium 7.6 mg/dL (8.4-10.2); Carbon Dioxide 22 mmol/L (22-30); Chloride 107 mmol/L (98-107); Estimated CRCL calculation 46 ml/min; Estimated Glomerular Filt Rate 40; Glucose 105 mg/dL (65-110); Sodium 136 mmol/L (137-145)
--- NOTE | 2023-06-17 07:20 | WPDGIPROGNO ---
Progress Note: A&P Assessment and Plan (1) Malignant ascites: Code(s): R18.0 - Malignant ascites Status: Acute Assessment and Plan: no source has been identified. Oncology has seen him but prefers to follow up as an outpatient. I will obtain an MRI of the abdomen today specifically to rule out pancreatic malignancy. (2) Duodenal ulcer: Code(s): K26.9 - Duodenal ulcer, unspecified as acute or chronic, without hemorrhage or perforation Status: Acute Assessment and Plan: He has a chronic duodenal ulcer. Dr. Locke found persistent ulcer but smaller than it had been in the past. Biopsies are pending (3) Gallstones: Code(s): K80.20 - Calculus of gallbladder without cholecystitis without obstruction Status: Acute Assessment and Plan: Probably asymptomatic at this time. (4) Liver cirrhosis: Code(s): K74.60 - Unspecified cirrhosis of liver Status: Acute Assessment and Plan: although scans reveal cirrhosis, the paracentesis fluid revealed malignant cells i.e. malignant ascites liver function studies are good. Alkaline phosphatase slightly elevated. Albumin is in the normal range. Plan From GI perspective, he does not need to stay in the hospital Subjective Date/time seen: 06/17/23 07:20 his main complaint today is that he feels weak. He has had no vomiting or nausea. His abdomen is tight but feels a bit better after paracentesis. He states that he was seen by Oncology but they are not planning any investigation while he is here. I told that the EGD done yesterday did not show any evidence of upper gastrointestinal source for his malignant ascites. Pancreatic source is possible. I will order MR [place]ila. Review of Systems Review of Systems: All systems reviewed & are unremarkable except as noted in HPI and below Exam Const: General: alert and obese Orientation/consciousness: patient oriented x3 Resp: Auscultation: clear to auscultation bilaterally Cardio: Rhythm: regular rhythm GI: Inspection: distended GI Palp: Yes Soft to palpation, No Tenderness to palpation present (GI), No Guarding due to palpation present (GI), Yes No hepatosplenomegaly present and Yes Ascites present Auscultation: normal bowel sounds Neuro: General: patient oriented x3 Objective Data Vital Signs Vital Signs: Vital Signs - 24 hr 06/16/23 09:25 06/16/23 08:00 06/16/23 10:00 Temperature Pulse Rate 83 Respiratory Rate Blood Pressure Pulse Oximetry Oxygen Delivery Room Air Room Air 06/16/23 12:15 06/16/23 12:00 06/16/23 13:12 Temperature 35.7 C L Pulse Rate 100 94 88 Respiratory Rate 20 20 Blood Pressure 122/62 80/49 L Pulse Oximetry 96 99 Oxygen Delivery Room Air Room Air 06/16/23 13:24 06/16/23 13:34 06/16/23 13:54 Temperature 35.7 C L Pulse Rate 90 77 86 Respiratory Rate 20 20 16 Blood Pressure 91/54 L 103/56 L 128/61 Pulse Oximetry 100 100 97 Oxygen Delivery Room Air Room Air 06/16/23 16:00 06/16/23 20:05 06/16/23 20:00 Temperature 36.3 C L Pulse Rate 97 88 Respiratory Rate 20 Blood Pressure 126/67 Pulse Oximetry 98 Oxygen Delivery Room Air 06/16/23 20:00 06/17/23 00:00 06/16/23 22:39 Temperature Pulse Rate 82 88 Respiratory Rate Blood Pressure Pulse Oximetry 98 Oxygen Delivery Room Air 06/17/23 04:00 06/17/23 05:23 Temperature 36.2 C L Pulse Rate 78 112 H Respiratory Rate 20 Blood Pressure 141/80 H Pulse Oximetry 98 Oxygen Delivery Intake/Output Intake/Output: Intake & Output 06/14/23 06/15/23 06/16/23 06/17/23 23:59 23:59 23:59 23:59 Intake Total 1425 4410 3200 1240 Output Total 1500 900 Balance 1425 2910 2300 1240 Meds/Results Medications: Active Medications Generic Name Dose Route Start Last Admin Trade Name Freq PRN Reason Stop Dose Admin Acetaminophen 650 mg 06/08/23 15:55 06/16/23 14:06 Acetaminophen 325 Mg Tablet PO
--- NOTE | 2023-06-17 08:26 | PM.IMPN ---
Progress Note: A&P Assessment and Plan (1) Acute on chronic anemia: Code(s): D64.9 - Anemia, unspecified Status: Acute (2) Gallstones: Code(s): K80.20 - Calculus of gallbladder without cholecystitis without obstruction Status: Acute (3) Constipation: Code(s): K59.00 - Constipation, unspecified Status: Acute (4) Blood in stool: Code(s): K92.1 - Melena Status: Acute (5) Hemorrhagic ascites: Code(s): R18.8 - Other ascites Status: Acute (6) Abdominal ascites: Code(s): R18.8 - Other ascites Status: Acute (7) VIN (acute kidney injury): Code(s): N17.9 - Acute kidney failure, unspecified Status: Acute (8) Hyperkalemia: Code(s): E87.5 - Hyperkalemia Status: Acute Plan 67M w/ PMH CAD s/p stent, HTN, HLD presented with blood tinged stool, abdominal ascites and LE swelling. Admitted on 06/09 for anemia and further workup. 1) anemia due to duodenal ulcer - unclear if chronic or acute. cirrhosis vs GI bleed vs AOCD - stable s/p 1 unit PRBC on 06/10. ctm. goal >8 - stool occult positive. GI consulted GI performed EGD for biopsy PPI therapy per GI Per GI, the EGD done did not show any evidence of upper gastrointestinal source for his malignant ascites.? Pancreatic source is possible ordered abd MRI. cirrhosis - this is new diagnosis to the patient. GI management per GI - denies blood transfusions before 1970. denies heavy alcohol use, was only social drinker before he retired in 2006. no family history of liver disease, denies hx of illicit drug abuse - AFP pending, and ascitic fluid cytology reveals metastatic adenocarcinoma hepatitis serology negative - lactulose started on 06/10 GI and oncologist on board 3) malignant ascites - spironolactone started, and lasix added 06/12 - s/p 5L out on admission with many red cells. also had PMN's but that's equivocal. repeat paracentesis on 06/12 with 4L out, repeat ascitic fluid studies pending - on ceftriaxone since admission for possible SBP, continue with bactrim daily for prophylaxis on d/c in a pt with cirrhosis, ascites, ascitic fluid cytology reveals adenocarcinoma. 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 resolved s/o lasix 40mg iv x1. ctm 6) VIN, hyperkalemia, - likely has CKD, and likely related to cirrhosis. albumin challenge stopped early 2/2 ARF. discontinued lisinopril and coreg. Kidney function is worse, potassium 5.4 Hold diuretic medication: furosemide and spironolactone renal function is improving HTN - dc'ed lisinopril, coreg, and coreg. CTM 7) CAD - hold aspirin and plavix and coreg for now in light of ascites, restart as appropriate 8) hypocalcemia - mild, asymptomatic. Continue causing carbonate 500 mg daily p.o. FEN: cardiac diet, saline lock IV GI prophylaxis: avoid for now DVT prophylaxis: SCD's only Lines: PIV Code Status: Full Code Dispo: stable Patient has a poor intake, consult dietitian for advice is Subjective Date/time seen: 06/17/23 08:26 Interval history: Patient has no stress, poor appetite, patient denies chest pain, shortness of breath, nausea vomiting abdomen pain. ABG done yesterday unremarkable Exam Narrative: GENERAL: Chronically ill-appearing, well-nourished, and in no acute distress. HEAD: Normocephalic, atraumatic. EYES: PERRL and EOMI. ENT:? Mucous membranes moist. NECK: Supple. CHEST: Clear to auscultation.? No respiratory distress. HEART: regular rate and rhythm, no murmur or gallop. ABDOMEN: Soft,
[2023-06-17] MEDS: ACETAMINOPHEN 325 MG TABLET 650 MG PO (08:42)
[2023-06-17] MEDS: LACTULOSE 20 GM/30 ML UDC PO (08:42)
[2023-06-17] MEDS: PANTOPRAZOLE 40 MG TABLET PO ×2 (08:45→20:26)
--- NOTE | 2023-06-17 09:12 | P.PNAN_ITS ---
Anes - Prog Note Post-Op Date/Time: 06/17/23 09:12 Cardiovascular status: normal Respiratory status: normal Airway patency: baseline Mental status: baseline Post-Op hydration status: normal Vital Signs: Last Vital Signs Temp 36.8 C 06/17/23 08:31 Pulse 84 06/17/23 08:31 Resp 18 06/17/23 08:31 BP 138/69 06/17/23 08:31 Pulse Ox 97 06/17/23 08:31 O2 Del Method Room Air 06/16/23 22:39 O2 Flow Rate 2 06/11/23 10:30 Pain Score (VAS): no complaints I/O: Intake & Output 06/16/23 06/17/23 06/17/23 23:59 07:59 15:59 Intake Total 1000 1240 Output Total 200 Balance 800 1240 Laboratory Tests 06/17/23 06:22 06/17/23 06:22 06/08/23 06/17/23 06/17/23 12:06 06:22 06:23 WBC 7.0 RBC 2.99 L Hgb 8.4 L Hct 28.1 L MCV 94.0 MCH 28.1 MCHC 29.9 L RDW 16.3 H Plt Count 208 MPV 10.9 H Immature Gran % (Auto) 0.4 Neut % (Auto) 72.9 Lymph % (Auto) 14.1 L [place] % (Auto) 10.4 H Eos % (Auto) 1.3 Baso % (Auto) 0.9 Lymph # (Auto) 0.99 [place] # (Auto) 0.7 H Eos # (Auto) 0.1 Baso # (Auto) 0.1 Abs Immat Gran (auto) 0.03 Absolute Neuts (auto) 5.1 Absolute Nucleated RBC 0.0 Nucleated RBC % 0.0 Sodium 136 L Potassium 4.0 Chloride 107 Carbon Dioxide 22 Anion Gap 7 L BUN 19 Creatinine 1.70 H Estim Creat Clear Calc 46 Estimated GFR 40 L Glucose 105 Calcium 7.6 L CA 19-9 Antigen Pending Hep B Core Total Ab Nonreactive Post-procedural complaints: none Patient Feedback: Patient satisfied with anesthetic care.
[2023-06-17] MEDS: CALCIUM CARBONATE (OSCAL) 500 MG TABLET PO ×2 (11:39→17:58)
--- NOTE | 2023-06-17 11:49 | PC.NURSE ---
On 06/17/23, the student, [Norma Arambula], provided care and completed [facility] documentation on this patient. I have reviewed the student's documentation and agree with the findings.
[2023-06-17] MEDS: cefTRIAXone 2 GM/NS 100 ML 2 GM/100 ML BAG IVPB (13:36)
[2023-06-17] MEDS: MORPHINE SULFATE (*CRX) 4 MG/ML INJ IV PUSH (18:49)
[2023-06-17] MEDS: ATORVASTATIN 40 MG TABLET PO (20:26)
[2023-06-18] VITALS (9 sets, daily range): BP systolic 102–121; BP diastolic 62–73; PULSE 82–101; RESP 16–18; TEMP 36.4–36.9; O2SAT 93–99
[2023-06-18] MEDS: MORPHINE SULFATE (*CRX) 4 MG/ML INJ IV PUSH (04:03)
[2023-06-18] MEDS: SODIUM CHLORIDE 0.9% IV 1,000 ML 125 ML IV CONT ×3 (04:08→21:22)
--- NOTE | 2023-06-18 08:34 | PM.IMPN ---
Progress Note: A&P Assessment and Plan (1) Acute on chronic anemia: Code(s): D64.9 - Anemia, unspecified Status: Acute (2) Gallstones: Code(s): K80.20 - Calculus of gallbladder without cholecystitis without obstruction Status: Acute (3) Constipation: Code(s): K59.00 - Constipation, unspecified Status: Acute (4) Blood in stool: Code(s): K92.1 - Melena Status: Acute (5) Hemorrhagic ascites: Code(s): R18.8 - Other ascites Status: Acute (6) Abdominal ascites: Code(s): R18.8 - Other ascites Status: Acute (7) VIN (acute kidney injury): Code(s): N17.9 - Acute kidney failure, unspecified Status: Acute (8) Hyperkalemia: Code(s): E87.5 - Hyperkalemia Status: Acute Plan 67M w/ PMH CAD s/p stent, HTN, HLD presented with blood tinged stool, abdominal ascites and LE swelling. Admitted on 06/09 for anemia and further workup. 1) anemia due to duodenal ulcer - unclear if chronic or acute. cirrhosis vs GI bleed vs AOCD - stable s/p 1 unit PRBC on 06/10. ctm. goal >8 - stool occult positive. GI consulted GI performed EGD for biopsy PPI therapy per GI Per GI, the EGD done did not show any evidence of upper gastrointestinal source for his malignant ascites. cirrhosis - this is new diagnosis to the patient. GI management per GI - denies blood transfusions before 1970. denies heavy alcohol use, was only social drinker before he retired in 2006. no family history of liver disease, denies hx of illicit drug abuse - AFP pending, and ascitic fluid cytology reveals metastatic adenocarcinoma hepatitis serology negative - lactulose started on 06/10 GI and oncologist on board MRI abd reports 1. Right upper quadrant mass which could reflect peritoneal metastasis or lymphadenopathy. 2. Large volume of ascites. 3. Omental thickening which could be due to congestion versus malignancy. 3) malignant ascites - spironolactone started, and lasix added 06/12 - s/p 5L out on admission with many red cells. also had PMN's but that's equivocal. repeat paracentesis on 06/12 with 4L out, repeat ascitic fluid studies pending - on ceftriaxone since admission for possible SBP, continue with bactrim daily for prophylaxis on d/c in a pt with cirrhosis, ascites, ascitic fluid cytology reveals adenocarcinoma. 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 resolved s/o lasix 40mg iv x1. ctm 6) VIN, hyperkalemia, - likely has CKD, and likely related to cirrhosis. albumin challenge stopped early 2/2 ARF. discontinued lisinopril and coreg. Kidney function is worse, potassium 5.4 Hold diuretic medication: furosemide and spironolactone renal function is improving Cr. 1.7 06/18 HTN - dc'ed lisinopril, coreg, and coreg. CTM 7) CAD - hold aspirin and plavix and coreg for now in light of ascites, restart as appropriate 8) hypocalcemia - mild, asymptomatic. Continue causing carbonate 500 mg daily p.o. FEN: cardiac diet, saline lock IV GI prophylaxis: avoid for now DVT prophylaxis: SCD's only Lines: PIV Code Status: Full Code Dispo: stable Patient has a poor intake, consult dietitian for advice is Subjective Date/time seen: 06/18/23 08:35 Interval history: Patient has no abdomen pain, has no energy and poor appetite, patient denies chest pain, shortness of breath, nausea vomiting abdomen pain Exam Narrative: GENERAL: Chronically ill-appearing, well-nourished, and in no acute distress. HEAD: Normocephalic, atraumatic. EYES: PERRL and EOMI. E
[2023-06-18] MEDS: LACTULOSE 20 GM/30 ML UDC PO (09:01)
[2023-06-18] MEDS: PANTOPRAZOLE 40 MG TABLET PO ×2 (09:01→20:45)
[2023-06-18] MEDS: CALCIUM CARBONATE (OSCAL) 500 MG TABLET PO ×3 (09:01→17:28)
[2023-06-18] MEDS: cefTRIAXone 2 GM/NS 100 ML 2 GM/100 ML BAG IVPB (15:19)
[2023-06-18] MEDS: SIMETHICONE 80 MG TAB.CHEW PO ×3 (15:19→20:44)
[2023-06-18] MEDS: ATORVASTATIN 40 MG TABLET PO (20:44)
[2023-06-18] MEDS: CALCIUM CARBONATE (TUMS) 500 MG (200 MG ELEMENTAL) PO (20:45)
[2023-06-18] MEDS: ACETAMINOPHEN 325 MG TABLET 650 MG PO (21:56)
[2023-06-19] VITALS (10 sets, daily range): BP systolic 103–124; BP diastolic 59–68; PULSE 63–134; RESP 17–20; TEMP 36.3–37.1; O2SAT 94–99
[2023-06-19] MEDS: SODIUM CHLORIDE 0.9% IV 1,000 ML 125 ML IV CONT ×3 (05:46→23:11)
--- NOTE | 2023-06-19 07:59 | PM.IMPN ---
Progress Note: A&P Assessment and Plan (1) Acute on chronic anemia: Code(s): D64.9 - Anemia, unspecified Status: Acute (2) Gallstones: Code(s): K80.20 - Calculus of gallbladder without cholecystitis without obstruction Status: Acute (3) Constipation: Code(s): K59.00 - Constipation, unspecified Status: Acute (4) Blood in stool: Code(s): K92.1 - Melena Status: Acute (5) Hemorrhagic ascites: Code(s): R18.8 - Other ascites Status: Acute (6) Abdominal ascites: Code(s): R18.8 - Other ascites Status: Acute (7) VIN (acute kidney injury): Code(s): N17.9 - Acute kidney failure, unspecified Status: Acute (8) Hyperkalemia: Code(s): E87.5 - Hyperkalemia Status: Acute Plan 67M w/ PMH CAD s/p stent, HTN, HLD presented with blood tinged stool, abdominal ascites and LE swelling. Admitted on 06/09 for anemia and further workup. 1) anemia due to duodenal ulcer - unclear if chronic or acute. cirrhosis vs GI bleed vs AOCD - stable s/p 1 unit PRBC on 06/10. ctm. goal >8 - stool occult positive. GI consulted GI performed EGD for biopsy PPI therapy per GI Per GI, the EGD done did not show any evidence of upper gastrointestinal source for his malignant ascites. cirrhosis - this is new diagnosis to the patient. GI management per GI - denies blood transfusions before 1970. denies heavy alcohol use, was only social drinker before he retired in 2006. no family history of liver disease, denies hx of illicit drug abuse - AFP pending, and ascitic fluid cytology reveals metastatic adenocarcinoma hepatitis serology negative - lactulose started on 06/10 GI and oncologist on board MRI abd reports 1. Right upper quadrant mass which could reflect peritoneal metastasis or lymphadenopathy. 2. Large volume of ascites. 3. Omental thickening which could be due to congestion versus malignancy. 3) malignant ascites - spironolactone started, and lasix added 06/12 - s/p 5L out on admission with many red cells. also had PMN's but that's equivocal. repeat paracentesis on 06/12 with 4L out, repeat ascitic fluid studies pending - on ceftriaxone since admission for possible SBP, continue with bactrim daily for prophylaxis on d/c in a pt with cirrhosis, ascites, ascitic fluid cytology reveals adenocarcinoma. 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 Consult heme oncologist, waiting for recommendations Ascites increases significantly, need paracentesis tomorrow UTI leukocytosis, and bladder pain on 06/12 - on ceftriaxone, UA shows pyuria and microscopic hematuria Follow urine culture, no growth so so far 4) constipation - verbal complaints, he feels better after multiple BM's - continue lactulose Resolves 5) acute hypoxic respiratory failure - volume overload 2/2 fluid administration on 06/10. resolved s/o lasix 40mg iv x1. ctm 6) VIN, hyperkalemia, - likely has CKD, and likely related to cirrhosis. albumin challenge stopped early 2/2 ARF. discontinued lisinopril and coreg. Kidney function is worse, potassium 5.4 Hold diuretic medication: furosemide and spironolactone renal function is improving Cr. 1.7 06/18 HTN - dc'ed lisinopril, coreg, and coreg. CTM 7) CAD - hold aspirin and plavix and coreg for now in light of ascites, restart as appropriate 8) hypocalcemia - mild, asymptomatic. Continue causing carbonate 500 mg daily p.o. FEN: cardiac diet, saline lock IV GI prophylaxis: avoid for now DVT prophylaxis: SCD's only Lines: PIV Code Status: Full Code Dispo: stable Patient has a poor intake, consult dietitian for advice is Subjective Date/time seen: 06/19/23 07:59 Interval history: Patient has no abdomen pain, but abdomen is distended, patient has no energy and poor appetite, patient denies chest pain, shortness of breath, nausea vomiting abdomen pain Exam Narrative: GENERAL: Chronically ill-appearing, well-n
[2023-06-19] MEDS: PANTOPRAZOLE 40 MG TABLET PO ×2 (08:42→21:05)
[2023-06-19] MEDS: SIMETHICONE 80 MG TAB.CHEW PO ×4 (08:42→21:05)
[2023-06-19] MEDS: CALCIUM CARBONATE (OSCAL) 500 MG TABLET PO ×3 (08:42→16:49)
[2023-06-19] MEDS: LACTULOSE 20 GM/30 ML UDC PO (08:42)
[2023-06-19] MEDS: MORPHINE SULFATE (*CRX) 4 MG/ML INJ IV PUSH ×3 (09:04→19:51)
[2023-06-19] MEDS: cefTRIAXone 2 GM/NS 100 ML 2 GM/100 ML BAG IVPB (14:32)
[2023-06-19] MEDS: ATORVASTATIN 40 MG TABLET PO (21:06)
[2023-06-20] VITALS (13 sets, daily range): BP systolic 109–134; BP diastolic 61–73; PULSE 88–125; RESP 15–20; TEMP 35.9–36.6; O2SAT 95–98
[2023-06-20] MEDS: ACETAMINOPHEN 325 MG TABLET 650 MG PO (06:48)
[2023-06-20] MEDS: SODIUM CHLORIDE 0.9% IV 1,000 ML 125 ML IV CONT ×2 (06:50→17:41)
--- NOTE | 2023-06-20 07:15 | PM.IMPN ---
Progress Note: A&P Assessment and Plan (1) Acute on chronic anemia: Code(s): D64.9 - Anemia, unspecified Status: Acute (2) Gallstones: Code(s): K80.20 - Calculus of gallbladder without cholecystitis without obstruction Status: Acute (3) Constipation: Code(s): K59.00 - Constipation, unspecified Status: Acute (4) Blood in stool: Code(s): K92.1 - Melena Status: Acute (5) Hemorrhagic ascites: Code(s): R18.8 - Other ascites Status: Acute (6) Abdominal ascites: Code(s): R18.8 - Other ascites Status: Acute (7) VIN (acute kidney injury): Code(s): N17.9 - Acute kidney failure, unspecified Status: Acute (8) Hyperkalemia: Code(s): E87.5 - Hyperkalemia Status: Acute Plan 67M w/ PMH CAD s/p stent, HTN, HLD presented with blood tinged stool, abdominal ascites and LE swelling. Admitted on 06/09 for anemia and further workup. 1) anemia due to duodenal ulcer - unclear if chronic or acute. cirrhosis vs GI bleed vs AOCD - stable s/p 1 unit PRBC on 06/10. ctm. goal >8 - stool occult positive. GI consulted GI performed EGD for biopsy PPI therapy per GI Per GI, the EGD done did not show any evidence of upper gastrointestinal source for his malignant ascites. Hemoglobin trending down slowly, follow-up CBC tomorrow GI on board. Follow recommendations cirrhosis - this is new diagnosis to the patient. GI management per GI - denies blood transfusions before 1970. denies heavy alcohol use, was only social drinker before he retired in 2006. no family history of liver disease, denies hx of illicit drug abuse - AFP pending, and ascitic fluid cytology reveals metastatic adenocarcinoma hepatitis serology negative - lactulose started on 06/10 GI and oncologist on board MRI abd reports 1. Right upper quadrant mass which could reflect peritoneal metastasis or lymphadenopathy. 2. Large volume of ascites. 3. Omental thickening which could be due to congestion versus malignancy. 3) malignant ascites - spironolactone started, and lasix added 06/12 - s/p 5L out on admission with many red cells. also had PMN's but that's equivocal. repeat paracentesis on 06/12 with 4L out, repeat ascitic fluid studies pending - on ceftriaxone since admission for possible SBP, continue with bactrim daily for prophylaxis on d/c in a pt with cirrhosis, ascites, ascitic fluid cytology reveals adenocarcinoma. 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 Consult heme oncologist, waiting for recommendations Ascites increases significantly, patient has some shortness breath Perform paracentesis today, discussed with GI, GI agreed to perform paracentesis Add furosemide and spironolactone per GI UTI leukocytosis, and bladder pain on 06/12 - on ceftriaxone, UA shows pyuria and microscopic hematuria Follow urine culture, no growth so so far 4) constipation - verbal complaints, he feels better after multiple BM's - continue lactulose Resolves 5) acute hypoxic respiratory failure - volume overload 2/2 fluid administration on 06/10. resolved s/o lasix 40mg iv x1. ctm 6) VIN, hyperkalemia, - likely has CKD, and likely related to cirrhosis. albumin challenge stopped early 2/2 ARF. discontinued lisinopril and coreg. Kidney function is worse, potassium 5.4 Hold diuretic medication: furosemide and spironolactone renal function is improving Cr. 1.7 06/18 HTN - dc'ed lisinopril, coreg, and coreg. CTM 7) CAD - hold aspirin and plavix and coreg for now in light of ascites, restart as appropriate 8) hypocalcemia - mild, asymptomatic. Continue causing carbonate 500 mg daily p.o. FEN: cardiac diet, saline lock IV GI prophylaxis: avoid for now DVT prophylaxis: SCD's only Lines: PIV Code Status: Full Code Dispo: stable Patient has a general weakness, may benefit from rehab Plan to discharge patient in 1 day, if patient condition stable tomorrow Subject
[2023-06-20] MEDS: SIMETHICONE 80 MG TAB.CHEW PO ×3 (08:32→20:43)
[2023-06-20] MEDS: CALCIUM CARBONATE (OSCAL) 500 MG TABLET PO ×2 (08:32→16:59)
[2023-06-20] MEDS: PANTOPRAZOLE 40 MG TABLET PO ×2 (08:33→20:43)
[2023-06-20] MEDS: MORPHINE SULFATE (*CRX) 4 MG/ML INJ IV PUSH (10:19)
[2023-06-20 10:23] LABS: Hematocrit 27.8 % (42.0-52.0); Mean Corpuscular HGB Conc 28.8 g/dl (32-36); Mean Corpuscular Hemoglobin 28.2 pg (26-34); Mean Corpuscular Volume 97.9 fl (80-100); Mean Platelet Volume 10.9 fl (7.4-10.4); Platelet Count Result 238 k/mm3 (150-375); Red Blood Count 2.84 M/mm3 (4.6-6.20); Red Cell Distribution Width 17.3 % (11.5-14.5); White Blood Count 8.5 K/mm3 (4.5-10.0)
[2023-06-20 10:38] LABS: INR 1.1
[2023-06-20 10:39] LABS: Partial Thromboplastin Time 32.9 SECONDS (22.3-36.8)
--- NOTE | 2023-06-20 11:36 | PCNFU ---
Nutrition Follow-Up Complete: Inadequate Oral Intake as related to cirrhosis as evidenced by poor po intake reported. Goal: Adequate Intake of at least 75% of meals/supplements - Not meeting goal PO. Continue with same goal Pt current nutrition is Regular diet. Ensure Compact BID for additional 220 kcal and 9 g protein each. Nutrition recommendation: Increase Ensure Compact to TID Last recorded weight is 109.8 kg. Up 9.8 kg since admission. Likely related to fluid. Bowel Motility: +1 BM 06/19/23 Labs Reviewed: Hgb 8.4, Hct 28.1, Na 136, GFR 40, Cre 1.7 Meds Noted: Morphine, ondansetron, protonix Skin:WNL Additional Notes: Pt continues to refuse meals and choose not to eat. Does not feel well after eating. He is drinking Ensure so will increase Compact to TID. Encourage PO intake Will monitor weight, labs,skin,oral intake, meds every 5 days.
--- NOTE | 2023-06-20 15:01 | WPDGIPROGNO ---
Progress Note: A&P Assessment and Plan (1) Malignant ascites: Code(s): R18.0 - Malignant ascites Status: Acute Assessment and Plan: no source has been identified. Oncology has seen him but prefers to follow up as an outpatient. I will obtain an MRI of the abdomen today specifically to rule out pancreatic malignancy. MRI revealed a mass, subhepatic but no definite primary. I will start him on spironolactone Lasix. Hopefully will help at least somewhat with the ascites, assuming part of it is due to his cirrhosis. (2) Duodenal ulcer: Code(s): K26.9 - Duodenal ulcer, unspecified as acute or chronic, without hemorrhage or perforation Status: Acute Assessment and Plan: He has a chronic duodenal ulcer. Dr. Lcoke found persistent ulcer but smaller than it had been in the past. Biopsies are pending (3) Gallstones: Code(s): K80.20 - Calculus of gallbladder without cholecystitis without obstruction Status: Acute Assessment and Plan: Probably asymptomatic at this time. (4) Liver cirrhosis: Code(s): K74.60 - Unspecified cirrhosis of liver Status: Acute Assessment and Plan: although scans reveal cirrhosis, the paracentesis fluid revealed malignant cells i.e. malignant ascites liver function studies are good. Alkaline phosphatase slightly elevated. Albumin is in the normal range. Plan Repeat paracentesis today due to reaccumulation of significant ascites fluid. From GI perspective, he does not need to stay in the hospital Subjective Date/time seen: 06/20/23 15:01 Patient becoming uncomfortable because of increased ascites. Previous paracentesis revealed that the ascites, adenocarcinoma primary. The source has not yet been found. He was seen once by Oncology who is going to see him in the clinic after discharge. The patient becoming more uncomfortable because of the ascites. Discussed with hospitalist. Will repeat paracentesis. His weight which was in the 230 is on admission had dropped down to 216 after paracentesis and now is up to 242. Exam Const: General: alert and obese Orientation/consciousness: patient oriented x3 Resp: Auscultation: clear to auscultation bilaterally Cardio: Rhythm: regular rhythm GI: Inspection: distended GI Palp: Yes Soft to palpation, No Tenderness to palpation present (GI), No Guarding due to palpation present (GI), Yes No hepatosplenomegaly present and Yes Ascites present Auscultation: normal bowel sounds Neuro: General: patient oriented x3 Objective Data Vital Signs Vital Signs: Vital Signs - 24 hr 06/19/23 16:00 06/19/23 18:00 06/19/23 20:11 Temperature 36.4 C 36.6 C Pulse Rate 102 H 102 H 63 Respiratory Rate 18 17 Blood Pressure 103/59 L 119/68 Pulse Oximetry 94 96 Oxygen Delivery 06/19/23 20:00 06/20/23 01:48 06/19/23 20:00 Temperature 36.4 C L Pulse Rate 98 110 H Respiratory Rate 18 Blood Pressure 111/64 Pulse Oximetry 95 Oxygen Delivery Room Air 06/20/23 00:00 06/20/23 04:58 06/20/23 04:00 Temperature 36.2 C L Pulse Rate 125 H 88 110 H Respiratory Rate 15 Blood Pressure 134/63 Pulse Oximetry 98 Oxygen Delivery 06/20/23 08:30 06/20/23 10:00 06/20/23 08:00 Temperature 35.9 C L Pulse Rate 98 92 Respiratory Rate 16 Blood Pressure 125/66 Pulse Oximetry 97 Oxygen Delivery Room Air 06/20/23 12:00 Temperature Pulse Rate 89 Respiratory Rate Blood Pressure Pulse Oximetry Oxygen Delivery Intake/Output Intake/Output: Intake & Output 06/17/23 06/18/23 06/19/23 06/20/23 23:59 23:59 23:59 23:59 Intake Total 4056 3750 3450 1070 Output Total 150 Balance 3906 3750 3450 1070 Meds/Results Medications: Active Medications Generic Name Dose Route Start Last Admin Trade Name Maryjo PRN Reason Stop Dose Admin Acetaminophen 650 mg 06/08/23 15:55 06/20/23 06:48 Acetaminophen 325 Mg Tablet PO 650 mg
[2023-06-20] MEDS: cefTRIAXone 2 GM/NS 100 ML 2 GM/100 ML BAG IVPB (17:00)
[2023-06-20] MEDS: ATORVASTATIN 40 MG TABLET PO (20:43)
[2023-06-20] MEDS: CALCIUM CARBONATE (TUMS) 500 MG (200 MG ELEMENTAL) PO (20:43)
[2023-06-21] VITALS (16 sets, daily range): BP systolic 88–137; BP diastolic 43–69; PULSE 86–104; RESP 18–22; TEMP 36.4–37.1; O2SAT 97–100
[2023-06-21] MEDS: SODIUM CHLORIDE 0.9% IV 1,000 ML 125 ML IV CONT (01:46)
[2023-06-21] MEDS: ACETAMINOPHEN 325 MG TABLET 650 MG PO (04:20)
[2023-06-21 06:26] LABS: Hematocrit 22.6 % (42.0-52.0); Mean Corpuscular HGB Conc 30.1 g/dl (32-36); Mean Corpuscular Hemoglobin 28.2 pg (26-34); Mean Corpuscular Volume 93.8 fl (80-100); Mean Platelet Volume 10.7 fl (7.4-10.4); Platelet Count Result 181 k/mm3 (150-375); Red Blood Count 2.41 M/mm3 (4.6-6.20); Red Cell Distribution Width 17.2 % (11.5-14.5); White Blood Count 5.9 K/mm3 (4.5-10.0)
[2023-06-21 06:30] LABS: Hemoglobin 6.8 g/dL (14.0-18.0)
[2023-06-21 06:56] LABS: Alanine Aminotransferase 9 U/L (6-50); Albumin Level 2.2 g/dL (3.5-5.1); Alkaline Phosphatase 118 U/L (38-126); Anion Gap 5 mmol/L (8-16); Aspartate Amino Transferase 25 U/L (17-59); Bilirubin,Total 0.3 mg/dL (0.2-1.3); Blood Urea Nitrogen 13 mg/dL (9-20); Calcium 6.9 mg/dL (8.4-10.2); Carbon Dioxide 18 mmol/L (22-30); Chloride 114 mmol/L (98-107); Estimated CRCL calculation 53 ml/min; Estimated Glomerular Filt Rate 47; Glucose 96 mg/dL (65-110); Potassium 3.9 mmol/L (3.4-5.0); Sodium 137 mmol/L (137-145)
[2023-06-21] MEDS: SODIUM CHLORIDE 0.9% IV 250 ML 30 ML IV CONT (07:54)
[2023-06-21] MEDS: LACTULOSE 20 GM/30 ML UDC PO (08:01)
[2023-06-21] MEDS: CALCIUM CARBONATE (OSCAL) 500 MG TABLET PO ×3 (08:45→16:54)
[2023-06-21] MEDS: SPIRONOLACTONE 50 MG TABLET 100 MG PO (08:45)
[2023-06-21] MEDS: SIMETHICONE 80 MG TAB.CHEW PO ×4 (08:45→20:01)
[2023-06-21] MEDS: FUROSEMIDE 40 MG TABLET PO (08:46)
[2023-06-21] MEDS: PANTOPRAZOLE 40 MG TABLET PO ×2 (08:46→20:01)
[2023-06-21 11:52] LABS: Albumin Peritoneal Fluid 1.6 g/dL
--- NOTE | 2023-06-21 12:37 | PM.IMPN ---
Progress Note: A&P Assessment and Plan (1) Acute on chronic anemia: Code(s): D64.9 - Anemia, unspecified Status: Acute (2) Gallstones: Code(s): K80.20 - Calculus of gallbladder without cholecystitis without obstruction Status: Acute (3) Constipation: Code(s): K59.00 - Constipation, unspecified Status: Acute (4) Blood in stool: Code(s): K92.1 - Melena Status: Acute (5) Hemorrhagic ascites: Code(s): R18.8 - Other ascites Status: Acute (6) Abdominal ascites: Code(s): R18.8 - Other ascites Status: Acute (7) VIN (acute kidney injury): Code(s): N17.9 - Acute kidney failure, unspecified Status: Acute (8) Hyperkalemia: Code(s): E87.5 - Hyperkalemia Status: Acute Plan 67M w/ PMH CAD s/p stent, HTN, HLD presented with blood tinged stool, abdominal ascites and LE swelling. Admitted on 06/09 for anemia and further workup. 1) anemia due to duodenal ulcer - unclear if chronic or acute. cirrhosis vs GI bleed vs AOCD - stable s/p 1 unit PRBC on 06/10. ctm. goal >8 - stool occult positive. GI consulted GI performed EGD for biopsy PPI therapy per GI Per GI, the EGD done did not show any evidence of upper gastrointestinal source for his malignant ascites. pt needs another 2 units of blood today for low HB cirrhosis - this is new diagnosis to the patient. GI management per GI - denies blood transfusions before 1970. denies heavy alcohol use, was only social drinker before he retired in 2006. no family history of liver disease, denies hx of illicit drug abuse - AFP pending, and ascitic fluid cytology reveals metastatic adenocarcinoma hepatitis serology negative - lactulose started on 06/10 GI and oncologist on board MRI abd reports 1. Right upper quadrant mass which could reflect peritoneal metastasis or lymphadenopathy. 2. Large volume of ascites. 3. Omental thickening which could be due to congestion versus malignancy. 3) malignant ascites - spironolactone started, and lasix added 06/12 - s/p 5L out on admission with many red cells. also had PMN's but that's equivocal. repeat paracentesis on 06/12 with 4L out, repeat ascitic fluid studies pending - on ceftriaxone since admission for possible SBP, continue with bactrim daily for prophylaxis on d/c in a pt with cirrhosis, ascites, ascitic fluid cytology reveals adenocarcinoma. 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 resolved continue lasix daily 6) VIN, hyperkalemia, - likely has CKD, and likely related to cirrhosis. albumin challenge stopped early 2/2 ARF. discontinued lisinopril and coreg. Kidney function is worse, potassium 5.4 Hold diuretic medication: furosemide and spironolactone renal function is improving Cr. 1.5 HTN - dc'ed lisinopril, coreg, and coreg. 7) CAD - hold aspirin and plavix and coreg for now in light of ascites, restart as appropriate 8) hypocalcemia - mild, asymptomatic. Continue causing carbonate 500 mg daily p.o. Continue to stabilise pt is hospital dc following specialist recommendations Rpt paracentesis tomorrow Subjective Date/time seen: 06/21/23 12:37 Interval history: 67-year-old male who presents ER with weakness.? Reports he has been feeling like he has been dying for the last week.? He was walking from [employer] to his car when his leg
--- NOTE | 2023-06-21 12:51 | WPDGIPROGNO ---
Progress Note: A&P Assessment and Plan (1) Malignant ascites: Code(s): R18.0 - Malignant ascites Status: Acute Assessment and Plan: Patient with malignant ascites. Adenocarcinoma identified in ascitic fluid analysis. This ascites is bloody in nature. Patient has had reaccumulation of fluid. Likely would benefit from follow-up paracentesis. This is usually done with ultrasound guidance. Follow-up MRI test performed yesterday reveals a mass underneath the liver. This could be in the peritoneum cannot exclude primary. I will leave follow-up of this to the discretion of oncology. Patient will be treated with diuretics in the hope that ascitic fluid will respond to this because he appears to have cirrhosis. If this is ascitic fluid is from the malignancy diuretics may have no benefit. Continue to monitor electrolytes of diuresis is applied. Elevated CEA and alpha fetoprotein levels are noted. At some point patient will likely need oncology follow-up. (2) Duodenal ulcer: Code(s): K26.9 - Duodenal ulcer, unspecified as acute or chronic, without hemorrhage or perforation Status: Acute Assessment and Plan: Patient duodenal ulcer. Histology benign. Plan to continue PPI therapy. Follow hemoglobin. No active bleeding identified. Decline in hemoglobin today. May need to monitor and transfuse if necessary. I suspect this is bleeding into the peritoneal space. (3) Erosive esophagitis: Code(s): K22.10 - Ulcer of esophagus without bleeding Status: Acute Assessment and Plan: Erosive esophagitis with benign histology. continue PPI therapy for acid reflux. (4) Acute on chronic anemia: Code(s): D64.9 - Anemia, unspecified Status: Acute Assessment and Plan: Hemoglobin has decline. Patient has had GI endoscopies. I suspect decline in hemoglobin likely related to his bloody ascites. He may need transfusion if it drops much further. (5) Liver cirrhosis: Code(s): K74.60 - Unspecified cirrhosis of liver Status: Acute Assessment and Plan: New diagnosis of cirrhosis. Patient now on diuretics in the hope that this may help lessen some of the ascitic fluid. However if this ascites is malignant in nature at may not responded to diuresis. Plan Repeat paracentesis was performed yesterday. This likely correlates with decline in hemoglobin. Continue to monitor. This will give patient more breathing room. Subjective Date/time seen: 06/21/23 12:51 Interval history: Patient complains of abdominal distention and swelling. Appears to have reaccumulation ascites. Review of Systems Review of Systems: Review of systems noncontributory. Exam Narrative: Physical exam reveals patient be alert comfortable at rest. Complains of abdominal distention. HEENT exam reveals no icterus. Abdomen is obese. Somewhat distended. No significant tenderness to palpation. No obvious masses. It appears as though he has ascites. Objective Data Vital Signs Vital Signs: Vital Signs - 24 hr 06/20/23 14:00 06/20/23 16:00 06/20/23 18:00 Temperature 97.6 F 97.6 F Pulse Rate 96 95 97 Respiratory Rate 16 16 Blood Pressure 124/62 130/61 Pulse Oximetry 96 98 Oxygen Delivery 06/20/23 19:57 06/20/23 20:00 06/20/23 23:58 Temperature 97.9 F 97.8 F Pulse Rate 101 H 99 Respiratory Rate 20 18 Blood Pressure 134/73 109/66 Pulse Oximetry 97 98 Oxygen Delivery Room Air 06/21/23 04:05 06/20/23 20:00 06/21/23 00:00 Temperature 97.9 F Pulse Rate 97 99 94 Respiratory Rate 18 Blood Pressure 129/69 Pulse Oximetry 100 Oxygen Delivery 06/21/23 04:00 06/21/23 08:42 06/21/23 08:03 Temperature Pulse Rate 104 H 86 Respiratory Rate 18 Blood Pressure Pulse Oximetry 100 Oxygen Delivery Room Air 06/21/23 10:35 Temperature 97.6 F Pulse Rate 99 Respiratory Rate 18 Blood Pressure 122/59 L Puls
--- NOTE | 2023-06-21 15:01 | PC.NURSE ---
On 06/21/23, the student, [Shayy Fink], provided care and completed [facility] documentation on this patient. I have reviewed the student's documentation and agree with the findings.
[2023-06-21] MEDS: cefTRIAXone 2 GM/NS 100 ML 2 GM/100 ML BAG IVPB (16:09)
[2023-06-21 19:30] LABS: Hematocrit 28.3 % (42.0-52.0); Hemoglobin 8.9 g/dL (14.0-18.0)
[2023-06-21] MEDS: ATORVASTATIN 40 MG TABLET PO (20:01)
[2023-06-21] MEDS: MORPHINE SULFATE (*CRX) 4 MG/ML INJ IV PUSH (20:03)
[2023-06-21] MEDS: ONDANSETRON INJ 4 MG/2 ML VIAL IV PUSH (20:10)
[2023-06-21 20:28] LABS: CA 19-9 8 U/mL (<34)
[2023-06-22] VITALS (13 sets, daily range): BP systolic 110–136; BP diastolic 56–70; PULSE 82–117; RESP 16–20; TEMP 36.2–36.6; O2SAT 95–100
[2023-06-22 06:23] LABS: Hematocrit 28.9 % (42.0-52.0); Hemoglobin 8.6 g/dL (14.0-18.0); Mean Corpuscular HGB Conc 29.8 g/dl (32-36); Mean Corpuscular Hemoglobin 28.8 pg (26-34); Mean Corpuscular Volume 96.7 fl (80-100); Mean Platelet Volume 10.8 fl (7.4-10.4); Platelet Count Result 191 k/mm3 (150-375); Red Blood Count 2.99 M/mm3 (4.6-6.20); Red Cell Distribution Width 17.4 % (11.5-14.5); White Blood Count 6.9 K/mm3 (4.5-10.0)
[2023-06-22 06:38] LABS: Anion Gap 10 mmol/L (8-16); Blood Urea Nitrogen 14 mg/dL (9-20); Calcium 7.8 mg/dL (8.4-10.2); Carbon Dioxide 18 mmol/L (22-30); Chloride 111 mmol/L (98-107); Estimated CRCL calculation 44 ml/min; Estimated Glomerular Filt Rate 38; Glucose 91 mg/dL (65-110); Sodium 139 mmol/L (137-145)
[2023-06-22] MEDS: PANTOPRAZOLE 40 MG TABLET PO ×2 (08:51→20:01)
[2023-06-22] MEDS: SPIRONOLACTONE 50 MG TABLET 100 MG PO (08:51)
[2023-06-22] MEDS: SIMETHICONE 80 MG TAB.CHEW PO ×4 (08:51→20:01)
--- NOTE | 2023-06-22 13:20 | P.PNIM_ITS ---
Progress Note: A&P Assessment and Plan (1) Acute on chronic anemia: Code(s): D64.9 - Anemia, unspecified Status: Acute (2) Gallstones: Code(s): K80.20 - Calculus of gallbladder without cholecystitis without obstruction Status: Acute (3) Constipation: Code(s): K59.00 - Constipation, unspecified Status: Acute (4) Blood in stool: Code(s): K92.1 - Melena Status: Acute (5) Hemorrhagic ascites: Code(s): R18.8 - Other ascites Status: Acute (6) Abdominal ascites: Code(s): R18.8 - Other ascites Status: Acute (7) VIN (acute kidney injury): Code(s): N17.9 - Acute kidney failure, unspecified Status: Acute (8) Hyperkalemia: Code(s): E87.5 - Hyperkalemia Status: Acute Plan 67M w/ PMH CAD s/p stent, HTN, HLD presented with blood tinged stool, abdominal ascites and LE swelling. Admitted on 06/09 for anemia and further workup. 1) anemia due to duodenal ulcer - unclear if chronic or acute. cirrhosis vs GI bleed vs AOCD - stable s/p 1 unit PRBC on 06/10. ctm. goal >8 - stool occult positive. GI consulted GI performed EGD for biopsy PPI therapy per GI Per GI, the EGD done did not show any evidence of upper gastrointestinal source for his malignant ascites. pt needs another 2 units of blood today for low HB cirrhosis - this is new diagnosis to the patient. GI management per GI - denies blood transfusions before 1970. denies heavy alcohol use, was only social drinker before he retired in 2006. no family history of liver disease, denies hx of illicit drug abuse - AFP pending, and ascitic fluid cytology reveals metastatic adenocarcinoma hepatitis serology negative - lactulose started on 06/10 GI and oncologist on board MRI abd reports 1. Right upper quadrant mass which could reflect peritoneal metastasis or lymphadenopathy. 2. Large volume of ascites. 3. Omental thickening which could be due to congestion versus malignancy. 3) malignant ascites - spironolactone started, and lasix added 06/12 - s/p 5L out on admission with many red cells. also had PMN's but that's equivocal. repeat paracentesis on 06/12 with 4L out, repeat ascitic fluid studies pending - on ceftriaxone since admission for possible SBP, continue with bactrim daily for prophylaxis on d/c in a pt with cirrhosis, ascites, ascitic fluid cytology reveals adenocarcinoma. 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 resolved continue lasix daily 6) VIN, hyperkalemia, - likely has CKD, and likely related to cirrhosis. albumin challenge stopped early 2/2 ARF. discontinued lisinopril and coreg. Kidney function is worse, potassium 5.4 Hold diuretic medication: furosemide and spironolactone renal function is improving Cr. 1.5 HTN - dc'ed lisinopril, coreg, and coreg. 7) CAD - hold aspirin and plavix and coreg for now in light of ascites, restart as appropriate
[2023-06-22] MEDS: MORPHINE SULFATE (*CRX) 4 MG/ML INJ IV PUSH ×2 (13:48→19:59)
--- NOTE | 2023-06-22 14:18 | PC.NURSE ---
To ultrasound via stretcher.
--- NOTE | 2023-06-22 15:10 | PC.NURSE ---
Returned from ultrasound via stretcher. Band-aid dry and intact.
--- NOTE | 2023-06-22 15:27 | WPDGIPROGNO ---
Progress Note: A&P Assessment and Plan (1) Malignant ascites: Code(s): R18.0 - Malignant ascites Status: Acute Assessment and Plan: Patient with malignant ascites. Adenoca noted on cytology. Primary site for this is unclear. CT scan imaging suggested mass beneath liver. Could this be a pancreatic cancer? Patient likely would benefit from oncology follow-up. I wonder feel be strong enough to go home on his own. We are trying diuretics to see if this minimizes the ascites but given the this is malignant I doubt if this makes any difference. Electrolytes need to be monitored closely. I am not sure there is much more that the GI service can offer for this patient. Hemorrhagic ascites likely was the etiology for patient's decline in hemoglobin. (2) Duodenal ulcer: Code(s): K26.9 - Duodenal ulcer, unspecified as acute or chronic, without hemorrhage or perforation Status: Acute Assessment and Plan: Patient found to have a duodenal ulcer as well as esophagitis. Plan to continue acid suppression long-term. Avoid NSAIDs. (3) Erosive esophagitis: Code(s): K22.10 - Ulcer of esophagus without bleeding Status: Acute Assessment and Plan: Patient with erosive esophagitis. Histology benign. Continue Protonix long-term. (4) Liver cirrhosis: Code(s): K74.60 - Unspecified cirrhosis of liver Status: Acute Assessment and Plan: CT scan suggested a cirrhotic liver. This is possibly contributing to his ascites. For this reason diuretics will be attempted to help minimize ascites. (5) Anemia: Code(s): D64.9 - Anemia, unspecified Status: Acute Assessment and Plan: Patient with a slight decline in hemoglobin suggest recent bleeding. Could be from his ulcer but I suspect more likely from the hemorrhagic ascites. Plan From the GI perspective patient can be discharged. I anticipate oncology follow-up and placement are next issues to be decided. Subjective Date/time seen: 06/22/23 15:27 Interval history: Patient more comfortable today. Was transfused yesterday. He denies any significant bleeding. Hemoglobin appears be stained stable after transfusion. Review of Systems Review of Systems: Review of systems noncontributory. Exam Narrative: Physical exam reveals patient be alert comfortable at rest. He is lying in bed. Uses walker to ambulate. Feels a little stronger today. HEENT exam reveals no icterus. Lungs are clear. Heart without murmur. Abdomen obese. Bowel sounds are present soft appears a little softer today than yesterday. No tenderness noted. No organomegaly or masses noted. Rectal deferred present. Objective Data Vital Signs Vital Signs: Vital Signs - 24 hr 06/21/23 16:20 06/21/23 16:20 06/21/23 16:03 Temperature 98.2 F 98.2 F Pulse Rate 92 92 89 Respiratory Rate 20 20 Blood Pressure 132/54 L 132/54 L Pulse Oximetry 98 98 Oxygen Delivery 06/21/23 18:02 06/21/23 20:00 06/21/23 20:00 Temperature 98.1 F Pulse Rate 90 95 Respiratory Rate 20 Blood Pressure 124/67 Pulse Oximetry 98 Oxygen Delivery Room Air 06/21/23 20:46 06/22/23 00:00 06/22/23 00:04 Temperature 98.8 F 97.3 F L Pulse Rate 95 106 H 91 Respiratory Rate 20 18 Blood Pressure 88/43 L 136/70 Pulse Oximetry 97 100 Oxygen Delivery 06/22/23 04:00 06/22/23 05:04 06/22/23 08:04 Temperature 97.9 F Pulse Rate 82 96 83 Respiratory Rate 16 Blood Pressure 115/57 L Pulse Oximetry 95 Oxygen Delivery 06/22/23 10:00 06/22/23 08:51 06/22/23 12:00 Temperature 97.1 F L Pulse Rate 91 84 Respiratory Rate 18 18 Blood Pressure 124/56 L Pulse Oximetry 97 96 Oxygen Delivery Room Air 06/22/23 13:56 Temperature 97.2 F L Pulse Rate 88 Respiratory Rate 20 Blood Pressure 135/62 Pulse Oximetry 97 Oxygen Delivery Intake/Output Intake/Output: Intake & Output
[2023-06-22] MEDS: CALCIUM CARBONATE (OSCAL) 500 MG TABLET PO (16:51)
[2023-06-22] MEDS: ATORVASTATIN 40 MG TABLET PO (20:01)
[2023-06-23] VITALS (13 sets, daily range): BP systolic 105–118; BP diastolic 59–73; PULSE 50–104; RESP 14–18; TEMP 35.9–36.6; O2SAT 91–98
[2023-06-23 06:06] LABS: Hematocrit 28.4 % (42.0-52.0); Hemoglobin 8.5 g/dL (14.0-18.0); Mean Corpuscular HGB Conc 29.9 g/dl (32-36); Mean Corpuscular Hemoglobin 29.1 pg (26-34); Mean Corpuscular Volume 97.3 fl (80-100); Mean Platelet Volume 10.7 fl (7.4-10.4); Platelet Count Result 195 k/mm3 (150-375); Red Blood Count 2.92 M/mm3 (4.6-6.20); Red Cell Distribution Width 17.7 % (11.5-14.5); White Blood Count 6.7 K/mm3 (4.5-10.0)
[2023-06-23 06:27] LABS: Anion Gap 6 mmol/L (8-16); Blood Urea Nitrogen 17 mg/dL (9-20); Calcium 7.7 mg/dL (8.4-10.2); Carbon Dioxide 20 mmol/L (22-30); Chloride 111 mmol/L (98-107); Estimated CRCL calculation 47 ml/min; Estimated Glomerular Filt Rate 40; Glucose 120 mg/dL (65-110); Sodium 137 mmol/L (137-145)
[2023-06-23] MEDS: MORPHINE SULFATE (*CRX) 4 MG/ML INJ IV PUSH ×4 (06:38→21:01)
[2023-06-23] MEDS: SPIRONOLACTONE 50 MG TABLET 100 MG PO (08:40)
[2023-06-23] MEDS: PANTOPRAZOLE 40 MG TABLET PO ×2 (08:40→21:02)
[2023-06-23] MEDS: FUROSEMIDE 40 MG TABLET PO (08:40)
[2023-06-23] MEDS: SIMETHICONE 80 MG TAB.CHEW PO ×4 (08:40→21:02)
[2023-06-23] MEDS: CALCIUM CARBONATE (OSCAL) 500 MG TABLET PO ×3 (08:40→16:24)
--- NOTE | 2023-06-23 10:59 | PCNFU ---
Nutrition Follow-Up Complete: Inadequate Oral Intake as related to cirrhosis as evidenced by poor po intake reported. Goal: Adequate Intake of at least 75% of meals/supplements Patient is meeting current goal. We will continue current goal. Pt current nutrition is Regular with Ensure compact BID. Last recorded weight is 102.1 kg, up from 100.5 kg on admit. Bowel Motility: +BM reported 06/23 Labs Reviewed:Glu 120, GFR 40, Hct 28.4,Hgb 8.5 Meds Noted:Lasix, Protonix, Mylicon Skin: WNL Additional Notes: Patient had Paracentesis 06/22-removing 4400 ml fluid. Patient remains on a regular diet. Tolerating oral intake 50-100% of meals. Agree with diet orders. Will monitor weight, labs,skin,oral intake, meds every 5 days.
--- NOTE | 2023-06-23 11:05 | PC.NURSE ---
On 06/23/23, the student, [Iván Anaya], provided care and [facility] this patient. I have reviewed the student's documentation and agree with the findings.
--- NOTE | 2023-06-23 11:47 | PM.IMPN ---
Progress Note: A&P Assessment and Plan (1) Acute on chronic anemia: Code(s): D64.9 - Anemia, unspecified Status: Acute (2) Gallstones: Code(s): K80.20 - Calculus of gallbladder without cholecystitis without obstruction Status: Acute (3) Constipation: Code(s): K59.00 - Constipation, unspecified Status: Acute (4) Blood in stool: Code(s): K92.1 - Melena Status: Acute (5) Hemorrhagic ascites: Code(s): R18.8 - Other ascites Status: Acute (6) Abdominal ascites: Code(s): R18.8 - Other ascites Status: Acute (7) VIN (acute kidney injury): Code(s): N17.9 - Acute kidney failure, unspecified Status: Acute (8) Hyperkalemia: Code(s): E87.5 - Hyperkalemia Status: Acute Plan 67M w/ PMH CAD s/p stent, HTN, HLD presented with blood tinged stool, abdominal ascites and LE swelling. Admitted on 06/09 for anemia and further workup. 1) anemia due to duodenal ulcer - unclear if chronic or acute. cirrhosis vs GI bleed vs AOCD - stable s/p 1 unit PRBC on 06/10. ctm. goal >8 - stool occult positive. GI consulted GI performed EGD for biopsy PPI therapy per GI Per GI, the EGD done did not show any evidence of upper gastrointestinal source for his malignant ascites. pt received another 2 units of blood today for low HB cirrhosis - this is new diagnosis to the patient. GI management per GI - denies blood transfusions before 1970. denies heavy alcohol use, was only social drinker before he retired in 2006. no family history of liver disease, denies hx of illicit drug abuse - AFP pending, and ascitic fluid cytology reveals metastatic adenocarcinoma hepatitis serology negative - lactulose prn started on 06/10 GI and oncologist on board MRI abd reports 1. Right upper quadrant mass which could reflect peritoneal metastasis or lymphadenopathy. 2. Large volume of ascites. 3. Omental thickening which could be due to congestion versus malignancy. 3) malignant ascites - spironolactone started, and lasix added 06/12 - s/p 5L out on admission with many red cells. also had PMN's but that's equivocal. repeat paracentesis on 06/12 with 4L out, repeat ascitic fluid studies pending - on ceftriaxone since admission for possible SBP, continue with bactrim daily for prophylaxis on d/c in a pt with cirrhosis, ascites, ascitic fluid cytology reveals adenocarcinoma. 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 Consult heme oncologist, waiting for recommendations Ascites increases significantly, patient has some shortness breath Perform paracentesis today, discussed with GI, GI agreed to perform paracentesis Add furosemide and spironolactone per GI pt had paracentesis repeated yesterday pt having nausea and sickness today questionable pancreatic cancer as per CT scan UTI leukocytosis, and bladder pain on 06/12 - on ceftriaxone, UA shows pyuria and microscopic hematuria Follow urine culture, no growth so so far 4) constipation - verbal complaints, he feels better after multiple BM's - continue lactulose Resolved 5) acute hypoxic respiratory failure - volume overload 2/2 fluid administration on 06/10. resolved continue lasix daily 6) VIN, hyperkalemia, - likely has CKD, and likely related to cirrhosis. albumin challenge stopped early 2/2 ARF. discontinued lisinopril and coreg. Kidney function is worse, potassium 5.4 Hold diuretic medication: furosemide and spironolactone renal function is improving Cr. 1.5 HTN - dc'ed lisinopril, coreg, and coreg. 7) CAD - hold aspirin and plavix and coreg for now in light of ascites, restart as appropriate 8) hypocalcemia - mild, asymptomatic. Continue causing carbonate 500 mg daily p.o. Continue to stabilize pt is hospital dc following specialist recommendations oncology and gi services family requesting rehab placement PT/ OT evaluation Subjective Date/time seen: 06/23/23 11:47
--- NOTE | 2023-06-23 12:12 | WPDGIPROGNO ---
Progress Note: A&P Assessment and Plan (1) Malignant ascites: Code(s): R18.0 - Malignant ascites Status: Acute Assessment and Plan: Patient with malignant bloody ascites. Adenocarcinoma identified by cytology. Primary is somewhat uncertain. CEA and alpha fetoprotein are elevated. CA 19-9 is normal. MRI suggested a mass beneath the liver. This may be metastatic. Plan for patient to follow up with Oncology. Because he has an apparent cirrhotic liver on imaging we are given patient a trial of diuretics to see if this helps. This often does not help with malignant ascites. Will need to monitor electrolytes while on diuresis. Patient will need follow-up with Oncology. I am not certain Hepatology service has much more to offer this patient. he has difficulty ambulating and likely will need assistance on discharge. Placement should be a priority at this time. (2) Duodenal ulcer: Code(s): K26.9 - Duodenal ulcer, unspecified as acute or chronic, without hemorrhage or perforation Status: Acute Assessment and Plan: Duodenal ulcer identified at time of endoscopy. Patient now on pantoprazole. He should avoid NSAIDs. Biopsies were negative. (3) Erosive esophagitis: Code(s): K22.10 - Ulcer of esophagus without bleeding Status: Acute Assessment and Plan: Erosive esophaitis on endoscopy. This appears be related to GE reflux. Histology was benign. Plan to continue pantoprazole and anti-reflux measures. No signs that this was bleeding. (4) Gallstones: Code(s): K80.20 - Calculus of gallbladder without cholecystitis without obstruction Status: Acute Assessment and Plan: Gallstones noted on imaging appear to be asymptomatic. (5) Liver cirrhosis: Code(s): K74.60 - Unspecified cirrhosis of liver Status: Acute Assessment and Plan: Imaging studies suggest patient has underlying cirrhosis of the liver. Elevated alpha fetoprotein raise the question of a hepatoma but this was not evident on imaging studies. Supportive care advised. Currently with ascites this potentially could be on the basis of cirrhosis, but more likely the malignancy. Limiting salt intake , and trying low-dose diuretics is advised at present.supportive care Plan Follow-up in treatment advised under the direction of Oncology. Consider establishing code status in this patient. I not sure the GI service as much more to offer this patient at present. Subjective Date/time seen: 06/23/23 12:12 Interval history: Patient alert. He remains weak. He takes additional oral intake with encouragement from family. No obvious bleeding described. Denies abdominal pain. Review of Systems Review of Systems: Review of systems noncontributory. Exam Narrative: Physical exam reveals patient be alert. Vital signs stable. Comfortable at rest. He is anicteric. Lungs are clear. Heart without murmur. Abdomen is obese. Abdomen with no organomegaly evident. No obvious shifting dullness at present. Objective Data Vital Signs Vital Signs: Vital Signs - 24 hr 06/22/23 13:56 06/22/23 16:08 06/22/23 17:51 Temperature 97.2 F L 97.2 F L Pulse Rate 88 117 H 96 Respiratory Rate 20 18 Blood Pressure 135/62 131/64 Pulse Oximetry 97 98 Oxygen Delivery 06/22/23 20:00 06/22/23 20:01 06/22/23 20:59 Temperature 97.9 F Pulse Rate 106 H 96 Respiratory Rate 16 Blood Pressure 110/56 L Pulse Oximetry 95 Oxygen Delivery Room Air 06/23/23 00:04 06/23/23 00:31 06/23/23 04:00 Temperature 97.7 F Pulse Rate 104 H 96 100 Respiratory Rate 18 Blood Pressure 112/60 Pulse Oximetry 94 Oxygen Delivery 06/23/23 06:33 06/23/23 08:42 06/23/23 08:04 Temperature 97.9 F Pulse Rate 84 79 Respiratory Rate 14 16 Blood Pressure 118/69 Pulse Oximetry 98 98 Oxygen Delivery Room Air 06/23/23 09:44 Temperature 96.7 F L Pulse Rat
--- NOTE | 2023-06-23 16:22 | PCPTNOTE ---
Attempted PT evaluation this date. Pt declined stating that he had just gotten back into bed. Will attempt at a later date/time.
[2023-06-23] MEDS: ONDANSETRON INJ 4 MG/2 ML VIAL IV PUSH (21:01)
[2023-06-23] MEDS: ATORVASTATIN 40 MG TABLET PO (21:02)
[2023-06-24] VITALS (13 sets, daily range): BP systolic 98–126; BP diastolic 54–64; PULSE 82–106; RESP 14–18; TEMP 36.1–36.8; O2SAT 93–98
[2023-06-24 06:23] LABS: Hematocrit 28.1 % (42.0-52.0); Hemoglobin 8.3 g/dL (14.0-18.0); Mean Corpuscular HGB Conc 29.5 g/dl (32-36); Mean Corpuscular Hemoglobin 28.4 pg (26-34); Mean Corpuscular Volume 96.2 fl (80-100); Mean Platelet Volume 10.7 fl (7.4-10.4); Platelet Count Result 202 k/mm3 (150-375); Red Blood Count 2.92 M/mm3 (4.6-6.20); Red Cell Distribution Width 17.9 % (11.5-14.5); White Blood Count 5.9 K/mm3 (4.5-10.0)
[2023-06-24 07:45] LABS: Anion Gap 8 mmol/L (8-16); Blood Urea Nitrogen 20 mg/dL (9-20); Carbon Dioxide 21 mmol/L (22-30); Chloride 107 mmol/L (98-107); Estimated CRCL calculation 43 ml/min; Estimated Glomerular Filt Rate 38; Glucose 101 mg/dL (65-110); Potassium 4.2 mmol/L (3.4-5.0); Sodium 136 mmol/L (137-145)
[2023-06-24] MEDS: MORPHINE SULFATE (*CRX) 4 MG/ML INJ IV PUSH ×3 (08:39→20:42)
[2023-06-24] MEDS: SPIRONOLACTONE 50 MG TABLET 100 MG PO (08:44)
[2023-06-24] MEDS: SIMETHICONE 80 MG TAB.CHEW PO ×4 (08:44→20:37)
[2023-06-24] MEDS: PANTOPRAZOLE 40 MG TABLET PO ×2 (08:45→20:37)
[2023-06-24] MEDS: CALCIUM CARBONATE (OSCAL) 500 MG TABLET PO ×3 (08:45→17:56)
[2023-06-24] MEDS: FUROSEMIDE 40 MG TABLET PO (08:45)
[2023-06-24] MEDS: ONDANSETRON INJ 4 MG/2 ML VIAL IV PUSH ×2 (08:57→13:58)
--- NOTE | 2023-06-24 17:31 | PM.IMPN ---
Progress Note: A&P Assessment and Plan (1) Acute on chronic anemia: Code(s): D64.9 - Anemia, unspecified Status: Acute (2) Gallstones: Code(s): K80.20 - Calculus of gallbladder without cholecystitis without obstruction Status: Acute (3) Constipation: Code(s): K59.00 - Constipation, unspecified Status: Acute (4) Blood in stool: Code(s): K92.1 - Melena Status: Acute (5) Hemorrhagic ascites: Code(s): R18.8 - Other ascites Status: Acute (6) Abdominal ascites: Code(s): R18.8 - Other ascites Status: Acute (7) ABHIJEET (acute kidney injury): Code(s): N17.9 - Acute kidney failure, unspecified Status: Acute (8) Hyperkalemia: Code(s): E87.5 - Hyperkalemia Status: Acute Plan 67-year-old male who presents ER with generalized weakness.? Reports he has been feeling like he has been dying for the last week.? He was walking from [place] to his car when his legs gave out.? He is found to be hypotensive bradycardic on arrival to the ED.? He reports over the last week he has been having decreased urination, he has been having blood-tinged diarrhea, and he has been having abdominal cramping.? The diarrhea is only squirts he has not had a full bowel movement.? Denies history of bowel obstruction.? CT abdomen pelvis reveal cirrhosis with large amount of ascites moderate diverticulosis cholelithiasis mild cardiomegaly and nonspecific stranding throughout the greater omentum. No definitive nodularity. Underwent paracentesis with removal of 5 L of bloody dark maroon-colored fluid on 06/08/2023 Repeat ultrasound-guided paracentesis yielding 4 L of dark bloody fluid 06/12/2023 Repeated again 06/08 and 06/22/2023 Paracentesis fluid positive for metastatic adenocarcinoma of unknown primary site CK 7 positive CK 20- CEA positive and CDX2 positive consistent with esophageal adeno carcinoma Abdominal MRI with right upper quadrant mass which could reflect peritoneal metastasis or lymphadenopathy large volume of ascites omental thickening could be related to congestion versus malignancy EGD 06/20/2023 acute ulcerative esophagitis/acute on chronic duodenitis AFP 80.4 elevated CEA elevated at 14.6 CA 19 9-Pt admitted for ascites, abhijeet and blood in the stools, hb is low this morning. CKD stage III with mild Abhijeet I on presentation now stable Oncology has been consulted Colonoscopy 06/14/2023: Internal hemorrhoids Constipation: On lactulose p.r.n. Acute hypoxic respiratory failure due to volume overload on 06/10/2023 on Lasix Hypertension continue to monitor Nonsustained ventricular tachycardia intermittent resume Coreg Coronary artery disease on Plavix statin Plavix is currently on hold due to anemia DVT prophylaxis SCDs Code status full code Disposition need to go to rehab facility Subjective Date/time seen: 06/24/23 17:31 Interval history: 67-year-old male who presents ER with generalized weakness.? Reports he has been feeling like he has been dying for the last week.? He was walking from [place] to his car when his legs gave out.? He is found to be hypotensive bradycardic on arrival to the ED.? He reports over the last week he has been having decreased urination, he has been having blood-tinged diarrhea, and he has been having abdominal cramping.? The diarrhea is only squirts he has not had a full bowel movement.? Denies history of bowel obstruction.? CT abdomen pelvis reveal cirrhosis with large amount of ascites moderate diverticulosis cholelithiasis mild cardiomegaly and nonspecific stranding throughout the greater omentum. No definitive nodularity. Underwent paracentesis with removal of 5 L of bloody dark maroon-colored fluid on 06/08/2023 Repeat ultrasound-guided paracentesis yielding 4 L of dark bloody fluid 06/12/2023 Repeated again 06/08 and 06/22/2023 Paracentesis fluid positive for metastatic adenocarcinoma of unknown primary site CK 7 positive CK 20-
[2023-06-24] MEDS: carvediloL 6.25 MG TABLET PO (20:37)
[2023-06-24] MEDS: ATORVASTATIN 40 MG TABLET PO (20:37)
[2023-06-25] VITALS (15 sets, daily range): BP systolic 97–132; BP diastolic 54–62; PULSE 80–102; RESP 18–20; TEMP 36.2–36.6; O2SAT 91–98
[2023-06-25 05:52] LABS: Basophils Absolute Auto 0.1 K/mm3 (0.0-0.1); Eosinophils Absolute Auto 0.1 K/mm3 (0-0.3); Eosinophils Percent Auto 1.1 % (0-4.4); Hemoglobin 8.4 g/dL (14.0-18.0); Immature Granulocyte Absolute 0.02 K/mm3 (0.00-0.031); Immature Granulocyte Percent A 0.3 % (0-0.5); Lymphocytes Absolute Auto 1.21 K/mm3 (0.9-3.2); Lymphocytes Percent Auto 19.2 % (18.3-44.2); Mean Corpuscular HGB Conc 31.1 g/dl (32-36); Mean Corpuscular Hemoglobin 29.5 pg (26-34); Mean Corpuscular Volume 94.7 fl (80-100); Mean Platelet Volume 10.5 fl (7.4-10.4); Monocytes Absolute Auto 0.6 K/mm3 (0.1-0.6); Neutrophils Absolute Auto 4.3 K/mm3 (1.3-6.7); Neutrophils Percent Auto 68.4 % (45.5-73.1); Platelet Count Result 199 k/mm3 (150-375); Red Blood Count 2.85 M/mm3 (4.6-6.20); Red Cell Distribution Width 17.9 % (11.5-14.5); White Blood Count 6.3 K/mm3 (4.5-10.0)
[2023-06-25 06:15] LABS: Alanine Aminotransferase 10 U/L (6-50); Albumin Level 2.5 g/dL (3.5-5.1); Alkaline Phosphatase 121 U/L (38-126); Anion Gap 5 mmol/L (8-16); Aspartate Amino Transferase 32 U/L (17-59); Bilirubin,Total 0.5 mg/dL (0.2-1.3); Blood Urea Nitrogen 22 mg/dL (9-20); Calcium 8.1 mg/dL (8.4-10.2); Carbon Dioxide 24 mmol/L (22-30); Chloride 106 mmol/L (98-107); Estimated CRCL calculation 34 ml/min; Estimated Glomerular Filt Rate 29; Glucose 109 mg/dL (65-110); Magnesium 1.6 mg/dL (1.6-2.3); Potassium 4.4 mmol/L (3.4-5.0); Sodium 135 mmol/L (137-145)
[2023-06-25] MEDS: MORPHINE SULFATE (*CRX) 4 MG/ML INJ IV PUSH ×2 (10:01→17:34)
[2023-06-25] MEDS: ONDANSETRON INJ 4 MG/2 ML VIAL IV PUSH ×2 (10:01→15:17)
--- NOTE | 2023-06-25 13:39 | PM.IMPN ---
Progress Note: A&P Assessment and Plan (1) Acute on chronic anemia: Code(s): D64.9 - Anemia, unspecified Status: Acute (2) Gallstones: Code(s): K80.20 - Calculus of gallbladder without cholecystitis without obstruction Status: Acute (3) Constipation: Code(s): K59.00 - Constipation, unspecified Status: Acute (4) Blood in stool: Code(s): K92.1 - Melena Status: Acute (5) Hemorrhagic ascites: Code(s): R18.8 - Other ascites Status: Acute (6) Abdominal ascites: Code(s): R18.8 - Other ascites Status: Acute (7) ABHIJEET (acute kidney injury): Code(s): N17.9 - Acute kidney failure, unspecified Status: Acute (8) Hyperkalemia: Code(s): E87.5 - Hyperkalemia Status: Acute Plan 67-year-old male who presents ER with generalized weakness.? Reports he has been feeling like he has been dying for the last week.? He was walking from [place] to his car when his legs gave out.? He is found to be hypotensive bradycardic on arrival to the ED.? He reports over the last week he has been having decreased urination, he has been having blood-tinged diarrhea, and he has been having abdominal cramping.? The diarrhea is only squirts he has not had a full bowel movement.? Denies history of bowel obstruction.? CT abdomen pelvis reveal cirrhosis with large amount of ascites moderate diverticulosis cholelithiasis mild cardiomegaly and nonspecific stranding throughout the greater omentum. No definitive nodularity. Underwent paracentesis with removal of 5 L of bloody dark maroon-colored fluid on 06/08/2023 Repeat ultrasound-guided paracentesis yielding 4 L of dark bloody fluid 06/12/2023 Repeated again 06/08 and 06/22/2023 Paracentesis fluid positive for metastatic adenocarcinoma of unknown primary site CK 7 positive CK 20- CEA positive and CDX2 positive consistent with esophageal adeno carcinoma Abdominal MRI with right upper quadrant mass which could reflect peritoneal metastasis or lymphadenopathy large volume of ascites omental thickening could be related to congestion versus malignancy EGD 06/20/2023 acute ulcerative esophagitis/acute on chronic duodenitis AFP 80.4 elevated CEA elevated at 14.6 CA 19 9-Pt admitted for ascites, abhijeet and blood in the stools, hb is low this morning. CKD stage III with mild Abhijeet I on presentation now stable will add albumin infusion today Oncology has been consulted Colonoscopy 06/14/2023: Internal hemorrhoids Constipation: On lactulose p.r.n. Acute hypoxic respiratory failure due to volume overload on 06/10/2023 on Lasix Hypertension continue to monitor will hold Lasix and Aldactone today due to slight bump in creatinine Nonsustained ventricular tachycardia intermittent resume Coreg rates more controlled now Coronary artery disease on Plavix statin Plavix is currently on hold due to anemia DVT prophylaxis SCDs Code status full code Disposition need to go to rehab facility Subjective Date/time seen: 06/25/23 13:39 Interval history: 67-year-old male who presents ER with generalized weakness.? Reports he has been feeling like he has been dying for the last week.? He was walking from [place] to his car when his legs gave out.? He is found to be hypotensive bradycardic on arrival to the ED.? He reports over the last week he has been having decreased urination, he has been having blood-tinged diarrhea, and he has been having abdominal cramping.? The diarrhea is only squirts he has not had a full bowel movement.? Denies history of bowel obstruction.? CT abdomen pelvis reveal cirrhosis with large amount of ascites moderate diverticulosis cholelithiasis mild cardiomegaly and nonspecific stranding throughout the greater omentum. No definitive nodularity. Underwent paracentesis with removal of 5 L of bloody dark maroon-colored fluid on 06/08/2023 Repeat ultrasound-guided paracentesis yielding 4 L of dark bloody fluid 06/12/2023 Repeated again 06/08
[2023-06-25] MEDS: LACTULOSE 20 GM/30 ML UDC PO (15:15)
[2023-06-25] MEDS: carvediloL 6.25 MG TABLET PO ×2 (15:16→22:05)
[2023-06-25] MEDS: PANTOPRAZOLE 40 MG TABLET PO ×2 (15:16→22:06)
[2023-06-25] MEDS: CALCIUM CARBONATE (OSCAL) 500 MG TABLET PO ×2 (15:16→17:35)
[2023-06-25] MEDS: SIMETHICONE 80 MG TAB.CHEW PO ×3 (15:17→22:06)
[2023-06-25] MEDS: ALBUMIN HUMAN 25% 25 GM/100 ML 200 ML IVPB ×2 (15:22→22:15)
[2023-06-25] MEDS: ACETAMINOPHEN 325 MG TABLET 650 MG PO (19:40)
[2023-06-25] MEDS: ATORVASTATIN 40 MG TABLET PO (22:06)
[2023-06-26] VITALS (12 sets, daily range): BP systolic 109–124; BP diastolic 51–74; PULSE 73–89; RESP 16–20; TEMP 36.3–36.8; O2SAT 90–99
[2023-06-26] MEDS: ALBUMIN HUMAN 25% 25 GM/100 ML 200 ML IVPB ×3 (05:14→22:00)
[2023-06-26 06:14] LABS: Basophils Absolute Auto 0.1 K/mm3 (0.0-0.1); Basophils Percent Auto 1.1 % (0.2-1.2); Eosinophils Absolute Auto 0.1 K/mm3 (0-0.3); Eosinophils Percent Auto 0.9 % (0-4.4); Hematocrit 25.7 % (42.0-52.0); Hemoglobin 7.6 g/dL (14.0-18.0); Immature Granulocyte Absolute 0.04 K/mm3 (0.00-0.031); Immature Granulocyte Percent A 0.6 % (0-0.5); Lymphocytes Absolute Auto 1.08 K/mm3 (0.9-3.2); Lymphocytes Percent Auto 16.3 % (18.3-44.2); Mean Corpuscular HGB Conc 29.6 g/dl (32-36); Mean Corpuscular Hemoglobin 28.9 pg (26-34); Mean Corpuscular Volume 97.7 fl (80-100); Mean Platelet Volume 10.7 fl (7.4-10.4); Monocytes Absolute Auto 0.6 K/mm3 (0.1-0.6); Monocytes Percent Auto 8.3 % (2.6-8.5); Neutrophils Absolute Auto 4.8 K/mm3 (1.3-6.7); Neutrophils Percent Auto 72.8 % (45.5-73.1); Platelet Count Result 179 k/mm3 (150-375); Red Blood Count 2.63 M/mm3 (4.6-6.20); Red Cell Distribution Width 17.9 % (11.5-14.5); White Blood Count 6.6 K/mm3 (4.5-10.0)
[2023-06-26 06:20] LABS: Alanine Aminotransferase 11 U/L (6-50); Albumin Level 3.4 g/dL (3.5-5.1); Alkaline Phosphatase 101 U/L (38-126); Anion Gap 7 mmol/L (8-16); Aspartate Amino Transferase 24 U/L (17-59); Bilirubin,Total 0.6 mg/dL (0.2-1.3); Blood Urea Nitrogen 23 mg/dL (9-20); Calcium 8.4 mg/dL (8.4-10.2); Carbon Dioxide 24 mmol/L (22-30); Chloride 107 mmol/L (98-107); Estimated CRCL calculation 37 ml/min; Estimated Glomerular Filt Rate 32; Glucose 109 mg/dL (65-110); Magnesium 1.6 mg/dL (1.6-2.3); Potassium 4.3 mmol/L (3.4-5.0); Sodium 138 mmol/L (137-145)
[2023-06-26] MEDS: PANTOPRAZOLE 40 MG TABLET PO ×2 (08:44→21:41)
[2023-06-26] MEDS: SIMETHICONE 80 MG TAB.CHEW PO ×4 (08:44→21:41)
[2023-06-26] MEDS: CALCIUM CARBONATE (OSCAL) 500 MG TABLET PO ×3 (08:44→16:29)
[2023-06-26] MEDS: carvediloL 6.25 MG TABLET PO ×2 (08:45→21:41)
[2023-06-26] MEDS: MORPHINE SULFATE (*CRX) 4 MG/ML INJ IV PUSH ×3 (08:48→21:50)
--- NOTE | 2023-06-26 08:49 | PM.IMPN ---
Progress Note: A&P Assessment and Plan (1) Acute on chronic anemia: Code(s): D64.9 - Anemia, unspecified Status: Acute (2) Gallstones: Code(s): K80.20 - Calculus of gallbladder without cholecystitis without obstruction Status: Acute (3) Constipation: Code(s): K59.00 - Constipation, unspecified Status: Acute (4) Blood in stool: Code(s): K92.1 - Melena Status: Acute (5) Hemorrhagic ascites: Code(s): R18.8 - Other ascites Status: Acute (6) Abdominal ascites: Code(s): R18.8 - Other ascites Status: Acute (7) ABHIJEET (acute kidney injury): Code(s): N17.9 - Acute kidney failure, unspecified Status: Acute (8) Hyperkalemia: Code(s): E87.5 - Hyperkalemia Status: Acute Plan 67-year-old male who presents ER with generalized weakness.? Reports he has been feeling like he has been dying for the last week.? He was walking from [place] to his car when his legs gave out.? He is found to be hypotensive bradycardic on arrival to the ED.? He reports over the last week he has been having decreased urination, he has been having blood-tinged diarrhea, and he has been having abdominal cramping.? The diarrhea is only squirts he has not had a full bowel movement.? Denies history of bowel obstruction.? CT abdomen pelvis reveal cirrhosis with large amount of ascites moderate diverticulosis cholelithiasis mild cardiomegaly and nonspecific stranding throughout the greater omentum. No definitive nodularity. Underwent paracentesis with removal of 5 L of bloody dark maroon-colored fluid on 06/08/2023 Repeat ultrasound-guided paracentesis yielding 4 L of dark bloody fluid 06/12/2023 Repeated again 06/08 and 06/22/2023 Paracentesis fluid positive for metastatic adenocarcinoma of unknown primary site CK 7 positive CK 20- CEA positive and CDX2 positive consistent with esophageal adeno carcinoma Abdominal MRI with right upper quadrant mass which could reflect peritoneal metastasis or lymphadenopathy large volume of ascites omental thickening could be related to congestion versus malignancy EGD 06/20/2023 acute ulcerative esophagitis/acute on chronic duodenitis AFP 80.4 elevated CEA elevated at 14.6 CA 19 9-Pt admitted for ascites, abhijeet and blood in the stools, hb is low this morning. CKD stage III with mild Abhijeet I on presentation now stable added on albumin infusion. Creatinine improved Oncology has been consulted Colonoscopy 06/14/2023: Internal hemorrhoids Constipation: On lactulose p.r.n. Acute hypoxic respiratory failure due to volume overload on 06/10/2023 on Lasix Hypertension continue to monitor will hold Lasix and Aldactone today due to slight bump in creatinine Slightly improved today. Continue to hold Lasix and Aldactone and will continue albumin infusion Nonsustained ventricular tachycardia intermittent resume Coreg rates more controlled now Coronary artery disease on Plavix statin Plavix is currently on hold due to anemia DVT prophylaxis SCDs Code status full code Disposition need to go to rehab facility Subjective Date/time seen: 06/26/23 08:49 Interval history: 67-year-old male who presents ER with generalized weakness.? Reports he has been feeling like he has been dying for the last week.? He was walking from [place] to his car when his legs gave out.? He is found to be hypotensive bradycardic on arrival to the ED.? He reports over the last week he has been having decreased urination, he has been having blood-tinged diarrhea, and he has been having abdominal cramping.? The diarrhea is only squirts he has not had a full bowel movement.? Denies history of bowel obstruction.? CT abdomen pelvis reveal cirrhosis with large amount of ascites moderate diverticulosis cholelithiasis mild cardiomegaly and nonspecific stranding throughout the greater omentum. No definitive nodularity. Underwent paracentesis with removal of 5 L of bloody dark maroon-colored fluid on 1
[2023-06-26 09:16] LABS: Anisocytosis 1+ (NORMAL); Burr Cells 1+ (NORMAL); Platelet Estimate Adequate (Adequate); Poikilocytosis 1+ (NORMAL); Schistocytes None Seen (NORMAL)
[2023-06-26] MEDS: ATORVASTATIN 40 MG TABLET PO (21:41)
[2023-06-27] VITALS (16 sets, daily range): BP systolic 111–140; BP diastolic 53–68; PULSE 66–88; RESP 12–20; TEMP 36.4–36.8; O2SAT 93–100
[2023-06-27] MEDS: ALBUMIN HUMAN 25% 25 GM/100 ML 200 ML IVPB ×3 (05:22→22:47)
[2023-06-27 05:53] LABS: Basophils Absolute Auto 0.1 K/mm3 (0.0-0.1); Basophils Percent Auto 0.9 % (0.2-1.2); Eosinophils Absolute Auto 0.1 K/mm3 (0-0.3); Eosinophils Percent Auto 1.4 % (0-4.4); Hematocrit 22.9 % (42.0-52.0); Immature Granulocyte Absolute 0.02 K/mm3 (0.00-0.031); Immature Granulocyte Percent A 0.4 % (0-0.5); Lymphocytes Absolute Auto 1.07 K/mm3 (0.9-3.2); Mean Corpuscular HGB Conc 29.7 g/dl (32-36); Mean Corpuscular Hemoglobin 28.7 pg (26-34); Mean Corpuscular Volume 96.6 fl (80-100); Mean Platelet Volume 10.5 fl (7.4-10.4); Monocytes Absolute Auto 0.5 K/mm3 (0.1-0.6); Monocytes Percent Auto 9.3 % (2.6-8.5); Neutrophils Absolute Auto 3.9 K/mm3 (1.3-6.7); Platelet Count Result 181 k/mm3 (150-375); Red Blood Count 2.37 M/mm3 (4.6-6.20); Red Cell Distribution Width 18.2 % (11.5-14.5); White Blood Count 5.6 K/mm3 (4.5-10.0)
[2023-06-27 06:02] LABS: Alanine Aminotransferase 8 U/L (6-50); Albumin Level 3.8 g/dL (3.5-5.1); Alkaline Phosphatase 82 U/L (38-126); Anion Gap 10 mmol/L (8-16); Aspartate Amino Transferase 21 U/L (17-59); Bilirubin,Total 0.7 mg/dL (0.2-1.3); Blood Urea Nitrogen 21 mg/dL (9-20); Calcium 8.5 mg/dL (8.4-10.2); Carbon Dioxide 21 mmol/L (22-30); Chloride 105 mmol/L (98-107); Estimated CRCL calculation 39 ml/min; Estimated Glomerular Filt Rate 33; Glucose 96 mg/dL (65-110); Magnesium 1.7 mg/dL (1.6-2.3); Potassium 3.8 mmol/L (3.4-5.0); Sodium 136 mmol/L (137-145)
[2023-06-27 07:11] LABS: Hemoglobin 6.8 g/dL (14.0-18.0)
[2023-06-27 07:12] LABS: Platelet Estimate Adequate (Adequate)
[2023-06-27 07:13] LABS: Anisocytosis 1+ (NORMAL); Ovalocytes 1+ (NORMAL); Poikilocytosis 1+ (NORMAL); Schistocytes None Seen (NORMAL)
--- NOTE | 2023-06-27 09:00 | PCOTNOTE ---
Per RN, Patient not to be seen this A.M. Patient is required to have a blood transfusion and will be going down for a CT. Per RN, check back this afternoon.
--- NOTE | 2023-06-27 09:18 | PCPTNOTE ---
Attempted to see patient for PT, however patient not appropriate for PT at this time. Per RN: patient's hemoglobins are low and patient is needing a blood transfusion.
[2023-06-27] MEDS: SODIUM CHLORIDE 0.9% IV 250 ML 30 ML IV CONT (10:28)
[2023-06-27] MEDS: SIMETHICONE 80 MG TAB.CHEW PO ×3 (13:50→22:47)
[2023-06-27] MEDS: CALCIUM CARBONATE (OSCAL) 500 MG TABLET PO ×2 (13:50→17:33)
--- NOTE | 2023-06-27 14:29 | PCOTNOTE ---
Per RN, Patient has received blood and is available for treatment. Attempted to see Patient at this time. Patient refused to participate, complaining of severe back pain and requesting RN for pain medication.
[2023-06-27] MEDS: MORPHINE SULFATE (*CRX) 2 MG/ML INJ IV PUSH (14:42)
--- NOTE | 2023-06-27 15:09 | PM.IMPN ---
Progress Note: A&P Assessment and Plan (1) Acute on chronic anemia: Code(s): D64.9 - Anemia, unspecified Status: Acute (2) Gallstones: Code(s): K80.20 - Calculus of gallbladder without cholecystitis without obstruction Status: Acute (3) Constipation: Code(s): K59.00 - Constipation, unspecified Status: Acute (4) Blood in stool: Code(s): K92.1 - Melena Status: Acute (5) Hemorrhagic ascites: Code(s): R18.8 - Other ascites Status: Acute (6) Abdominal ascites: Code(s): R18.8 - Other ascites Status: Acute (7) ABHIJEET (acute kidney injury): Code(s): N17.9 - Acute kidney failure, unspecified Status: Acute (8) Hyperkalemia: Code(s): E87.5 - Hyperkalemia Status: Acute Plan 67-year-old male who presents ER with generalized weakness.? Reports he has been feeling like he has been dying for the last week.? He was walking from [place] to his car when his legs gave out.? He is found to be hypotensive bradycardic on arrival to the ED.? He reports over the last week he has been having decreased urination, he has been having blood-tinged diarrhea, and he has been having abdominal cramping.? The diarrhea is only squirts he has not had a full bowel movement.? Denies history of bowel obstruction.? CT abdomen pelvis reveal cirrhosis with large amount of ascites moderate diverticulosis cholelithiasis mild cardiomegaly and nonspecific stranding throughout the greater omentum. No definitive nodularity. Underwent paracentesis with removal of 5 L of bloody dark maroon-colored fluid on 06/08/2023 Repeat ultrasound-guided paracentesis yielding 4 L of dark bloody fluid 06/12/2023 Repeated again 06/08 and 06/22/2023 Paracentesis fluid positive for metastatic adenocarcinoma of unknown primary site CK 7 positive CK 20- CEA positive and CDX2 positive consistent with esophageal adeno carcinoma Abdominal MRI with right upper quadrant mass which could reflect peritoneal metastasis or lymphadenopathy large volume of ascites omental thickening could be related to congestion versus malignancy EGD 06/20/2023 acute ulcerative esophagitis/acute on chronic duodenitis AFP 80.4 elevated CEA elevated at 14.6 CA 19 9-Pt admitted for ascites, abhijeet and blood in the stools, hb is low this morning. CKD stage III with mild Abhijeet I on presentation now stable added on albumin infusion. Creatinine improved Oncology has been consulted and discussed with him. He would benefit from inpatient chemotherapy treatment potentially malignant hemorrhagic ascites and ongoing anemia. Case is discussed with Alejandra and awaiting acceptance at higher facility Colonoscopy 06/14/2023: Internal hemorrhoids Constipation: On lactulose p.r.n. Acute hypoxic respiratory failure due to volume overload on 06/10/2023 on Lasix Hypertension continue to monitor will hold Lasix and Aldactone today due to slight bump in creatinine Slightly improved today. Continue to hold Lasix and Aldactone and will continue albumin infusion Nonsustained ventricular tachycardia intermittent resume Coreg rates more controlled now Coronary artery disease on Plavix statin Plavix is currently on hold due to anemia DVT prophylaxis SCDs Code status full code Disposition need to go to rehab facility Subjective Date/time seen: 06/27/23 15:09 Interval history: 67-year-old male who presents ER with generalized weakness.? Reports he has been feeling like he has been dying for the last week.? He was walking from [facility] to his car when his legs gave out.? He is found to be hypotensive bradycardic on arrival to the ED.? He reports over the last week he has been having decreased urination, he has been having blood-tinged diarrhea, and he has been having abdominal cramping.? The diarrhea is only squirts he has not had a full bowel movement.? Denies history of bowel obstruction.? CT abdomen pelvis reveal cirrhosis with large amount of ascites moderate d
[2023-06-27 15:26] LABS: Hematocrit 29.9 % (42.0-52.0); Hemoglobin 9.1 g/dL (14.0-18.0)
--- NOTE | 2023-06-27 18:13 | WPDONCPN ---
Progress Note: A/P - Additional Plan Metastatic adenocarcinoma likely esophageal primary is status post paracentesis done on June 09, 2023 that came back positive for metastatic adenocarcinoma. I have discussed this case with the hospitalist team and recommended transfer this patient to [facility] where he can get inpatient chemotherapy and hopefully PET scan. Patient will also need next generation sequencing by [facility] which can be done as an outpatient to identify the likely primary site. Patient has my office information for follow-up. Malignant ascites patient has been getting recurrent paracentesis. Hopefully with the start of chemotherapy this will improve. Anemia. This is secondary to chronic kidney disease as well as iron deficiency. Continue supportive blood transfusion. - Time Spent With Patient Total time spent is greater than 50% in coordination of care (as documented) at patient's floor/unit and/or counseling patient: 15 - 25 minutes Subjective Interval history: Metastatic adenocarcinoma likely esophageal primary Review of Systems - Review of Systems Patient is had paracentesis done few hours ago today. He feels comfortable. Denies any abdominal pain. No bleeding and bruising. No other new complaints. All systems reviewed & are unremarkable except as noted in HPI and bel Exam Vital signs: Temp Pulse Resp BP Pulse Ox O2 Del Method O2 Flow Rate 36.6 C 66 16 132/58 L 99 Room Air 2 06/27/23 16:44 06/27/23 16:44 06/27/23 16:44 06/27/23 16:44 06/27/23 16:44 06/27/23 08:00 06/11/23 10:30 Narrative: Lungs are clear to auscultation bilaterally Cardiovascular regular rate rhythm no murmurs Abdomen slightly distended bowel sounds are positive Extremities no edema PN: Objective Data - Labs CBC & Chem 7: 06/27/23 14:54 06/27/23 05:43 Labs: Laboratory Results - last 24 hr 06/08/23 06/27/23 06/27/23 15:59 05:43 08:47 WBC 5.6 RBC 2.37 L Hgb 6.8 L* Hct 22.9 L MCV 96.6 MCH 28.7 MCHC 29.7 L RDW 18.2 H Plt Count 181 MPV 10.5 H Immature Gran % (Auto) 0.4 Neut % (Auto) 69.0 Lymph % (Auto) 19.0 Mower % (Auto) 9.3 H Eos % (Auto) 1.4 Baso % (Auto) 0.9 Lymph # (Auto) 1.07 Mower # (Auto) 0.5 Eos # (Auto) 0.1 Baso # (Auto) 0.1 Abs Immat Gran (auto) 0.02 Absolute Neuts (auto) 3.9 Absolute Nucleated RBC 0.0 Nucleated RBC % 0.0 Platelet Estimate Adequate Poikilocytosis 1+ Anisocytosis 1+ Ovalocytes 1+ Schistocytes None seen Sodium 136 L Potassium 3.8 Chloride 105 Carbon Dioxide 21 L Anion Gap 10 BUN 21 H Creatinine 2.00 H Estim Creat Clear Calc 39 Estimated GFR 33 L Glucose 96 Calcium 8.5 Magnesium 1.7 Total Bilirubin 0.7 AST 21 ALT 8 Alkaline Phosphatase 82 Total Protein 6.0 L Albumin 3.8 Blood Type A Positive Antibody Screen Negative Crossmatch See Detail See Detail 06/27/23 14:54 WBC RBC Hgb 9.1 L Hct 29.9 L MCV MCH MCHC RDW Plt Count MPV Immature Gran % (Auto) Neut % (Auto) Lymph % (Auto) Mower % (Auto) Eos % (Auto) Baso % (Auto) Lymph # (Auto) Mower # (Auto) Eos # (Auto) Baso # (Auto) Abs Immat Gran (auto) Absolute Neuts (auto) Absolute Nucleated RBC Nucleated RBC % Platelet Estimate Poikilocytosis Anisocytosis Ovalocytes Schistocytes Sodium Potassium Chloride Carbon Dioxide Anion Gap BUN Creatinine Estim Creat Clear Calc Estimated GFR Glucose Calcium Magnesium Total Bilirubin AST ALT Alkaline Phosphatase Total Protein Albumin Blood Type Antibody Screen Crossmatch
[2023-06-27] MEDS: carvediloL 6.25 MG TABLET PO (22:47)
[2023-06-27] MEDS: PANTOPRAZOLE 40 MG TABLET PO (22:48)
[2023-06-27] MEDS: ATORVASTATIN 40 MG TABLET PO (22:48)
[2023-06-28] VITALS (14 sets, daily range): BP systolic 109–139; BP diastolic 44–62; PULSE 61–92; RESP 16–18; TEMP 36.1–36.8; O2SAT 94–99
[2023-06-28] MEDS: ALBUMIN HUMAN 25% 25 GM/100 ML 200 ML IVPB ×3 (05:28→21:39)
[2023-06-28 06:14] LABS: Basophils Absolute Auto 0.1 K/mm3 (0.0-0.1); Basophils Percent Auto 0.8 % (0.2-1.2); Eosinophils Percent Auto 0.7 % (0-4.4); Hematocrit 26.5 % (42.0-52.0); Hemoglobin 8.2 g/dL (14.0-18.0); Immature Granulocyte Absolute 0.02 K/mm3 (0.00-0.031); Immature Granulocyte Percent A 0.3 % (0-0.5); Lymphocytes Absolute Auto 1.15 K/mm3 (0.9-3.2); Lymphocytes Percent Auto 18.8 % (18.3-44.2); Mean Corpuscular HGB Conc 30.9 g/dl (32-36); Mean Corpuscular Hemoglobin 29.3 pg (26-34); Mean Corpuscular Volume 94.6 fl (80-100); Monocytes Absolute Auto 0.6 K/mm3 (0.1-0.6); Neutrophils Absolute Auto 4.3 K/mm3 (1.3-6.7); Neutrophils Percent Auto 70.4 % (45.5-73.1); Platelet Count Result 195 k/mm3 (150-375); Red Cell Distribution Width 17.9 % (11.5-14.5); White Blood Count 6.1 K/mm3 (4.5-10.0)
[2023-06-28 06:22] LABS: Alanine Aminotransferase 6 U/L (6-50); Albumin Level 4.5 g/dL (3.5-5.1); Alkaline Phosphatase 81 U/L (38-126); Anion Gap 13 mmol/L (8-16); Aspartate Amino Transferase 22 U/L (17-59); Bilirubin,Total 1.2 mg/dL (0.2-1.3); Blood Urea Nitrogen 21 mg/dL (9-20); Carbon Dioxide 22 mmol/L (22-30); Chloride 104 mmol/L (98-107); Estimated CRCL calculation 35 ml/min; Estimated Glomerular Filt Rate 36; Glucose 88 mg/dL (65-110); Magnesium 1.7 mg/dL (1.6-2.3); Sodium 139 mmol/L (137-145)
--- NOTE | 2023-06-28 09:09 | PCOTNOTE ---
Attempted to see Patient this A.M. Patient refused to participate, stated, I'm sick, in horrible pain, not doing anything .
[2023-06-28] MEDS: CALCIUM CARBONATE (OSCAL) 500 MG TABLET PO ×3 (09:14→16:54)
[2023-06-28] MEDS: PANTOPRAZOLE 40 MG TABLET PO ×2 (09:14→20:10)
[2023-06-28] MEDS: SIMETHICONE 80 MG TAB.CHEW PO ×4 (09:14→20:10)
[2023-06-28] MEDS: SPIRONOLACTONE 50 MG TABLET 100 MG PO (09:14)
[2023-06-28] MEDS: carvediloL 6.25 MG TABLET PO ×2 (09:14→20:10)
[2023-06-28] MEDS: FUROSEMIDE 40 MG TABLET PO (09:14)
[2023-06-28] MEDS: MORPHINE SULFATE (*CRX) 2 MG/ML INJ IV PUSH (11:13)
--- NOTE | 2023-06-28 11:16 | PCNFU ---
Nutrition Follow-Up Complete: Inadequate Oral Intake as related to cirrhosis as evidenced by poor po intake reported. goal: Adequate Intake of at least 75% of meals/supplements Patient has limited progress towards goal. Pt current nutrition is Regular with Ensure compact BID. Last recorded weight is 94.3 kg, down from 100.5 kg on admit. Bowel Motility:+Bm reported 06/27 Labs Reviewed:Cr 1.9,BUN 21, GFR 36, Hct 26.52,Hgb 8.2 Meds Noted:Lasix, Protonix, Morphine Skin: WNL Additional Notes: Patient currently on a regular diet. Intake poor, 0-10% of meals. 06/27 had another paracentesis with 4,100 ml removed. Patient getting 1 unit of blood today with possible plans to transfer to larger facility for treatments. Will monitor weight, labs,skin,oral intake, meds every 5 days.
[2023-06-28] MEDS: ONDANSETRON INJ 4 MG/2 ML VIAL IV PUSH (11:20)
--- NOTE | 2023-06-28 13:29 | WPDGIPROGNO ---
Progress Note: A&P Assessment and Plan (1) Malignant ascites: Code(s): R18.0 - Malignant ascites Status: Acute Assessment and Plan: Patient with malignant ascites. Paracentesis have been bloody. Cytology suggest adenocarcinoma. Patient on empiric diuretics because of possible underlying cirrhosis based on imaging studies. No significant response with this. Oncology suggest referral to tertiary care center so that as he begins some rehab he can also begin chemotherapy. Our hospital not equipped for inpatient chemotherapy. Supportive care for now. Patient too weak to go home directly. (2) Duodenal ulcer: Code(s): K26.9 - Duodenal ulcer, unspecified as acute or chronic, without hemorrhage or perforation Status: Acute Assessment and Plan: Duodenal ulcer with benign histology noted. Continue proton pump inhibitor. Avoid NSAIDs. Allow diet as tolerated. Dietary supplements may be beneficial. (3) Erosive esophagitis: Code(s): K22.10 - Ulcer of esophagus without bleeding Status: Acute Assessment and Plan: Erosive esophagitis noted on endoscopy. Histology benign. Grossly consistent with acid reflux. Continue PPI acid suppression. Concern over esophageal cancer based on cytology results. Not evident endoscopically. Hematology/ oncology service following. (4) Liver cirrhosis: Code(s): K74.60 - Unspecified cirrhosis of liver Status: Acute Subjective Date/time seen: 06/28/23 13:29 Interval history: Patient alert fairly comfortable today. Had another paracentesis with ascitic fluid removal for comfort measures. Patient family agree with transfer to tertiary care center so that chemotherapy can be initiated. So far minimal response to diuretics. Review of Systems Review of Systems: Review of systems noncontributory. Exam Narrative: Physical exam reveals patient be alert comfortable at rest. HEENT exam reveals no obvious icterus. Lungs are clear. Heart without murmur. Abdomen with modest distention. No obvious organomegaly or significant tenderness. Objective Data Vital Signs Vital Signs: Vital Signs - 24 hr 06/27/23 13:40 06/27/23 16:44 06/27/23 18:00 Temperature 97.7 F 98 F 98 F Pulse Rate 75 66 72 Respiratory Rate 16 16 18 Blood Pressure 136/57 L 132/58 L 129/55 L Pulse Oximetry 98 99 98 Oxygen Delivery 06/27/23 16:00 06/27/23 19:47 06/27/23 22:47 Temperature 98.2 F Pulse Rate 72 67 68 Respiratory Rate 18 Blood Pressure 138/58 L Pulse Oximetry 96 Oxygen Delivery 06/28/23 02:00 06/27/23 20:00 06/28/23 00:00 Temperature 98.0 F Pulse Rate 76 81 76 Respiratory Rate 18 Blood Pressure 122/62 Pulse Oximetry 94 Oxygen Delivery 06/28/23 04:00 06/28/23 06:00 06/28/23 09:14 Temperature 98.3 F Pulse Rate 63 61 70 Respiratory Rate 18 Blood Pressure 134/44 L Pulse Oximetry 96 Oxygen Delivery 06/28/23 10:18 06/28/23 09:00 06/28/23 09:00 Temperature 96.9 F L Pulse Rate 73 64 Respiratory Rate 16 Blood Pressure 139/56 L Pulse Oximetry 99 96 Oxygen Delivery Room Air Intake/Output Intake/Output: Intake & Output 06/25/23 06/26/23 06/27/23 06/28/23 23:59 23:59 23:59 23:59 Intake Total 850 1140 1350 200 Output Total 491 768 4553 475 Balance 674 740 -6830 -275 Meds/Results Medications: Active Medications Generic Name Dose Route Start Last Admin Trade Name Freq PRN Reason Stop Dose Admin Acetaminophen 650 mg 06/08/23 15:55 06/25/23 19:40 Acetaminophen 325 Mg Tablet PO 650 mg Q4H PRN Administration Mild Pain (1-3) or Fever Atorvastatin Calcium 40 mg 06/08/23 22:55 06/27/23 22:48 Atorvastatin 40 Mg Tablet PO 40 mg HS MINISTERIO Administration Calcium Carbonate 500 mg 06/17/23 12:00 06/28/23 12:57 Calcium Carbonate (Oscal) 500 Mg Tablet PO 500 mg TIDWM MINISTERIO Administration Calcium Carbonate 200 mg
--- NOTE | 2023-06-28 13:35 | PM.IMPN ---
Progress Note: A&P Assessment and Plan (1) Acute on chronic anemia: Code(s): D64.9 - Anemia, unspecified Status: Acute (2) Gallstones: Code(s): K80.20 - Calculus of gallbladder without cholecystitis without obstruction Status: Acute (3) Constipation: Code(s): K59.00 - Constipation, unspecified Status: Acute (4) Blood in stool: Code(s): K92.1 - Melena Status: Acute (5) Hemorrhagic ascites: Code(s): R18.8 - Other ascites Status: Acute (6) Abdominal ascites: Code(s): R18.8 - Other ascites Status: Acute (7) ABHIJEET (acute kidney injury): Code(s): N17.9 - Acute kidney failure, unspecified Status: Acute (8) Hyperkalemia: Code(s): E87.5 - Hyperkalemia Status: Acute Plan 67-year-old male who presents ER with generalized weakness.? Reports he has been feeling like he has been dying for the last week.? He was walking from [employer] to his car when his legs gave out.? He is found to be hypotensive bradycardic on arrival to the ED.? He reports over the last week he has been having decreased urination, he has been having blood-tinged diarrhea, and he has been having abdominal cramping.? The diarrhea is only squirts he has not had a full bowel movement.? Denies history of bowel obstruction.? CT abdomen pelvis reveal cirrhosis with large amount of ascites moderate diverticulosis cholelithiasis mild cardiomegaly and nonspecific stranding throughout the greater omentum. No definitive nodularity. Underwent paracentesis with removal of 5 L of bloody dark maroon-colored fluid on 06/08/2023 Repeat ultrasound-guided paracentesis yielding 4 L of dark bloody fluid 06/12/2023 Repeated again 06/08 and 06/22/2023. Repeat on 06/27/2023. Paracentesis fluid positive for metastatic adenocarcinoma of unknown primary site CK 7 positive CK 20- CEA positive and CDX2 positive consistent with esophageal adeno carcinoma Abdominal MRI with right upper quadrant mass which could reflect peritoneal metastasis or lymphadenopathy large volume of ascites omental thickening could be related to congestion versus malignancy EGD 06/20/2023 acute ulcerative esophagitis/acute on chronic duodenitis AFP 80.4 elevated CEA elevated at 14.6 CA 19 9 negative Pt admitted for ascites, abhijeet and blood in the stools, CKD stage III with mild Abhijeet I on presentation now stable added on albumin infusion. Creatinine improved Oncology has been consulted and discussed with him. He would benefit from inpatient chemotherapy treatment potentially malignant hemorrhagic ascites and ongoing anemia along with PET scan. Case is discussed with Alejandra and excepted by Dr. Multani. Awaiting bed placement Colonoscopy 06/14/2023: Internal hemorrhoids Constipation: On lactulose p.r.n. Acute hypoxic respiratory failure due to volume overload on 06/10/2023 on Lasix Hypertension continue to monitor will hold Lasix and Aldactone today due to slight bump in creatinine Slightly improved today. Continue to hold Lasix and Aldactone and will continue albumin infusion. Resumed Lasix and Aldactone Nonsustained ventricular tachycardia intermittent resume Coreg rates more controlled now Coronary artery disease on Plavix statin Plavix is currently on hold due to anemia DVT prophylaxis SCDs Code status full code Disposition need to go to rehab facility but now planned to be transferred to [place] for further treatment Subjective Date/time seen: 06/28/23 13:35 Interval history: 67-year-old male who presents ER with generalized weakness.? Reports he has been feeling like he has been dying for the last week.? [facility] when his legs gave out.? He is found to be hypotensive bradycardic on arrival to the ED.? He reports over the last week he has been having decreased urination, he has been having blood-tinged diarrhea, and he has been having abdominal cramping.? The diarrhea is only squirts he has not had a
[2023-06-28] MEDS: ACETAMINOPHEN 325 MG TABLET 650 MG PO (17:21)
[2023-06-28] MEDS: ATORVASTATIN 40 MG TABLET PO (20:09)
[2023-06-29] VITALS (9 sets, daily range): BP systolic 129–149; BP diastolic 54–69; PULSE 67–94; RESP 16–18; TEMP 36.7–36.9; O2SAT 69–98
[2023-06-29] MEDS: ALBUMIN HUMAN 25% 25 GM/100 ML 200 ML IVPB ×2 (06:04→14:11)
[2023-06-29 06:16] LABS: Basophils Percent Auto 0.5 % (0.2-1.2); Eosinophils Absolute Auto 0.1 K/mm3 (0-0.3); Eosinophils Percent Auto 1.1 % (0-4.4); Hematocrit 26.7 % (42.0-52.0); Hemoglobin 8.3 g/dL (14.0-18.0); Immature Granulocyte Absolute 0.02 K/mm3 (0.00-0.031); Immature Granulocyte Percent A 0.3 % (0-0.5); Lymphocytes Absolute Auto 0.97 K/mm3 (0.9-3.2); Lymphocytes Percent Auto 14.7 % (18.3-44.2); Mean Corpuscular HGB Conc 31.1 g/dl (32-36); Mean Corpuscular Hemoglobin 29.3 pg (26-34); Mean Corpuscular Volume 94.3 fl (80-100); Mean Platelet Volume 10.6 fl (7.4-10.4); Monocytes Absolute Auto 0.7 K/mm3 (0.1-0.6); Monocytes Percent Auto 9.8 % (2.6-8.5); Neutrophils Absolute Auto 4.9 K/mm3 (1.3-6.7); Neutrophils Percent Auto 73.6 % (45.5-73.1); Platelet Count Result 197 k/mm3 (150-375); Red Blood Count 2.83 M/mm3 (4.6-6.20); Red Cell Distribution Width 17.6 % (11.5-14.5); White Blood Count 6.6 K/mm3 (4.5-10.0)
[2023-06-29 06:31] LABS: Alanine Aminotransferase 9 U/L (6-50); Alkaline Phosphatase 70 U/L (38-126); Anion Gap 15 mmol/L (8-16); Aspartate Amino Transferase 22 U/L (17-59); Blood Urea Nitrogen 25 mg/dL (9-20); Calcium 9.4 mg/dL (8.4-10.2); Carbon Dioxide 23 mmol/L (22-30); Chloride 101 mmol/L (98-107); Estimated CRCL calculation 31 ml/min; Estimated Glomerular Filt Rate 30; Glucose 98 mg/dL (65-110); Magnesium 1.8 mg/dL (1.6-2.3); Potassium 3.9 mmol/L (3.4-5.0); Sodium 139 mmol/L (137-145)
--- NOTE | 2023-06-29 08:31 | PM.IMPN ---
Progress Note: A&P Assessment and Plan (1) Acute on chronic anemia: Code(s): D64.9 - Anemia, unspecified Status: Acute (2) Gallstones: Code(s): K80.20 - Calculus of gallbladder without cholecystitis without obstruction Status: Acute (3) Constipation: Code(s): K59.00 - Constipation, unspecified Status: Acute (4) Blood in stool: Code(s): K92.1 - Melena Status: Acute (5) Hemorrhagic ascites: Code(s): R18.8 - Other ascites Status: Acute (6) Abdominal ascites: Code(s): R18.8 - Other ascites Status: Acute (7) ABHIJEET (acute kidney injury): Code(s): N17.9 - Acute kidney failure, unspecified Status: Acute (8) Hyperkalemia: Code(s): E87.5 - Hyperkalemia Status: Acute Plan 67-year-old male who presents ER with generalized weakness.? Reports he has been feeling like he has been dying for the last week.? He was walking from [place] to his car when his legs gave out.? He is found to be hypotensive bradycardic on arrival to the ED.? He reports over the last week he has been having decreased urination, he has been having blood-tinged diarrhea, and he has been having abdominal cramping.? The diarrhea is only squirts he has not had a full bowel movement.? Denies history of bowel obstruction.? CT abdomen pelvis reveal cirrhosis with large amount of ascites moderate diverticulosis cholelithiasis mild cardiomegaly and nonspecific stranding throughout the greater omentum. No definitive nodularity. Underwent paracentesis with removal of 5 L of bloody dark maroon-colored fluid on 06/08/2023 Repeat ultrasound-guided paracentesis yielding 4 L of dark bloody fluid 06/12/2023 Repeated again 06/08 and 06/22/2023. Repeat on 06/27/2023. Paracentesis fluid positive for metastatic adenocarcinoma of unknown primary site CK 7 positive CK 20- CEA positive and CDX2 positive consistent with esophageal adeno carcinoma Abdominal MRI with right upper quadrant mass which could reflect peritoneal metastasis or lymphadenopathy large volume of ascites omental thickening could be related to congestion versus malignancy EGD 06/20/2023 acute ulcerative esophagitis/acute on chronic duodenitis AFP 80.4 elevated CEA elevated at 14.6 CA 19 9 negative Pt admitted for ascites, abhijeet and blood in the stools, CKD stage III with mild Abhijeet I on presentation now stable added on albumin infusion. Creatinine improved Colonoscopy 06/14/2023: Internal hemorrhoids Constipation: On lactulose p.r.n. Oncology has been consulted and discussed with him. may benefit from inpatient chemotherapy treatment potentially malignant hemorrhagic ascites and ongoing anemia along with PET scan. Case was discussed with Alejandra accepted by Dr. Multani. Awaiting bed placement 06/29: No new issue or event over the night, patient is on the waiting list to be transferred to [facility] Acute hypoxic respiratory failure due to volume overload on 06/10/2023 on Lasix Hypertension continue to monitor hold Lasix and Aldactone today due to slight bump in creatinine Slightly improved today. Continue to hold Lasix and Aldactone and will continue albumin infusion. Resumed Lasix and Aldactone Nonsustained ventricular tachycardia intermittent resume Coreg rates more controlled now Coronary artery disease on Plavix statin Plavix is currently on hold due to anemia DVT prophylaxis SCDs Code status full code Patient is on the waiting list to be transferred to [facility] for further treatment Subjective Date/time seen: 06/29/23 08:31 Interval history: Patient has a general weakness, poor appetite, no new issue even overnight, patient afebrile. I reviewed labs Exam Narrative: GENERAL: Chronically ill-appearing, well-nourished, and in no acute distress. HEAD: Normocephalic, atraumatic. EYES: PERRL and EOMI. ENT:? Mucous membranes moist. NECK: Supple. CHEST: Clear to auscultation.? No respiratory distress. HEART: r
[2023-06-29] MEDS: SPIRONOLACTONE 50 MG TABLET 100 MG PO (09:13)
[2023-06-29] MEDS: SIMETHICONE 80 MG TAB.CHEW PO ×3 (09:13→16:17)
[2023-06-29] MEDS: CALCIUM CARBONATE (OSCAL) 500 MG TABLET PO ×3 (09:13→16:17)
[2023-06-29] MEDS: PANTOPRAZOLE 40 MG TABLET PO (09:13)
[2023-06-29] MEDS: FUROSEMIDE 40 MG TABLET PO (09:13)
[2023-06-29] MEDS: carvediloL 6.25 MG TABLET PO (09:13)
--- NOTE | 2023-06-29 14:57 | PCOTNOTE ---
Patient declined treatment this afternoon. Patient was back in bed and stating he needed rest.
[2023-06-29] MEDS: ACETAMINOPHEN 325 MG TABLET 650 MG PO (16:17)
[2023-06-29] MEDS: polyethylene glycoL 3350 17 GM POWD.PACK PO (16:51)
--- NOTE | 2023-06-29 17:32 | PM.TDS ---
Transfer Discharge Sum: Prov Provider Date of admission: 06/08/23 15:55 Primary care physician: UNKNOWN,DOCTOR Admitting clinician: Alexandra Hanson DO Consults: 06/08/23 Consult to Physician Routine Comment: Consulting Provider: Jerardo Locke physically impaired teacher/ group to consult: Gastroenterology Reason for consultation: non destructive evaluation specialist gastroenterology Has provider been notified: Yes 06/13/23 Consult to Physician Routine Comment: Spoke to 06.13.23 @ 7035--ab/us Consulting Provider: Jorge Gandhi physically impaired teacher/ group to consult: Oncology Reason for consultation: malignant ascites. adenocarcinoma, unknown primary Has provider been notified: Yes 06/27/23 11:55 Consult to Physician Routine Comment: Spoke to 06.27.23 @ 1220--ab/us Consulting Provider: Jorge Gandhi physically impaired teacher/ group to consult: oncology Reason for consultation: metastatic cancer with malignant hemorrhagic ascites Has provider been notified: Yes DS: Admitting Diagnosis Discharge Date 06/29/23 Admitting Diagnosis (1) Acute on chronic anemia: ?Code(s): D64.9 - Anemia, unspecified ?Status:?Acute (2) Gallstones: ?Code(s): K80.20 - Calculus of gallbladder without cholecystitis without obstruction ?Status:?Acute (3) Constipation: ?Code(s): K59.00 - Constipation, unspecified ?Status:?Acute (4) Blood in stool: ?Code(s): K92.1 - Melena ?Status:?Acute (5) Hemorrhagic ascites: ?Code(s): R18.8 - Other ascites ?Status:?Acute (6) Abdominal ascites: ?Code(s): R18.8 - Other ascites ?Status:?Acute (7) VIN (acute kidney injury): ?Code(s): N17.9 - Acute kidney failure, unspecified ?Status:?Acute (8) Hyperkalemia: ?Code(s): E87.5 - Hyperkalemia ?Status:?Acute DS: Discharge Diagnosis Discharge Diagnosis (1) Acute on chronic anemia: Code(s): D64.9 - Anemia, unspecified Status: Acute (2) Gallstones: Code(s): K80.20 - Calculus of gallbladder without cholecystitis without obstruction Status: Acute (3) Constipation: Code(s): K59.00 - Constipation, unspecified Status: Acute (4) Blood in stool: Code(s): K92.1 - Melena Status: Acute (5) Hemorrhagic ascites: Code(s): R18.8 - Other ascites Status: Acute (6) Abdominal ascites: Code(s): R18.8 - Other ascites Status: Acute (7) VIN (acute kidney injury): Code(s): N17.9 - Acute kidney failure, unspecified Status: Acute (8) Hyperkalemia: Code(s): E87.5 - Hyperkalemia Status: Acute Transfer Discharge Sum: Med Medications Active and Home Medications: Home Medications atorvastatin 40 mg tablet 40 mg PO HS 06/08/23 [History Confirmed 06/16/23] carvedilol 6.25 mg tablet 6.25 mg PO BID 06/08/23 [History Confirmed 06/16/23] clopidogrel 75 mg tablet 75 mg PO DAILY 06/08/23 [History Confirmed 06/16/23] lisinopril 5 mg tablet 5 mg PO BID 06/08/23 [History Confirmed 06/16/23] Active Medications Acetaminophen (Acetaminophen 325 Mg Tablet) 650 mg PO Q4H PRN PRN Reason: Mild Pain (1-3) or Fever Last Admin: 06/29/23 16:17 Dose: 650 mg Atorvastatin Calcium (Atorvastatin 40 Mg Tablet) 40 mg PO HS [facility] Last Admin: 06/28/23 20:09 Dose: 40 mg Calcium Carbonate (Calcium Carbonate (Oscal) 500 Mg Tablet) 500 mg PO TIDWM [facility] Last Admin: 06/29/23 16:17 Dose: 500 mg Calcium Carbonate (Calcium Carbonate (Tums) 500 Mg (200 Mg Elemental)) 200 mg PO Q6H PRN PRN Reason: Indigestion Last Admin: 06/20/23 20:43 Dose: 200 mg Carvedilol (Carvedilol 6.25 Mg Tablet) 6.25 mg PO Q12HR [facility] Last Admin: 11/22/23 09:13 Dose: 6.25 mg Furosemide (Furosemide 40 Mg Tablet) 40 mg PO DAILY [facility]ISTER[facility] Last Admin: 06/29/23 09:13 Dose: 40 mg Albumin Human (Albutein) 200 mls @ 60 mls/hr IVPB Q8HR [facility] Last Admin: 06/29/23 14:11 Dose: 60 mls/hr Lactulose (Lactulose 20 Gm/30 Ml Udc) 20 gm PO QAM PRN PRN Reason: fo
== END 2023-06-29 18:57 | disposition short-term general hospital (02) | DRG 374 ==
LOC: ANHED 12:49 → ANHIMU 19:40 → ANH2MED 06-10 10:43 → ANHIMU 06-10 10:43
PROVIDERS: Family Medicine; General Practice; Internal Medicine; Internal Medicine Gastroenterology; Internal Medicine Hematology & Oncology; Preventive Medicine Aerospace Medicine; Student in an Organized Health Care Education/Training Program; Admitting Provider Student in an Organized Health Care Education/Training Program; Emergency Provider Emergency Medicine; Visit Provider Hospitalist
PROC: 0DJ08ZZ Inspection of Upper Intestinal Tract, Via Natural or Artificial Opening Endoscopic (ICD-10-PCS; CPT 43235; principal; 2023-06-14 14:30)
DX: C78.6 Secondary malignant neoplasm of retroperitoneum and peritoneum (principal); K21.01 Gastro-esophageal reflux disease with esophagitis, with bleeding; N17.9 Acute kidney failure, unspecified; D62 Acute posthemorrhagic anemia; R18.0 Malignant ascites; K26.3 Acute duodenal ulcer without hemorrhage or perforation; C15.9 Malignant neoplasm of esophagus, unspecified; I12.9 Hypertensive chronic kidney disease with stage 1 through stage 4 chronic kidney disease, or unspecified chronic kidney disease; K74.60 Unspecified cirrhosis of liver; E87.5 Hyperkalemia; Z95.5 Presence of coronary angioplasty implant and graft; I25.10 Atherosclerotic heart disease of native coronary artery without angina pectoris; I25.2 Old myocardial infarction; F17.210 Nicotine dependence, cigarettes, uncomplicated; K80.20 Calculus of gallbladder without cholecystitis without obstruction; E83.51 Hypocalcemia; K64.8 Other hemorrhoids; E87.70 Fluid overload, unspecified; N18.30 Chronic kidney disease, stage 3 unspecified
CPT/HCPCS: 36415; 36430; 49083; 71045; 74018; 74176; 74183; 80048; 80053; 80061; 81001; 82042; 82104; 82105; 82140; 82150; 82378; 82390; 82525; 82728; 82945; 83036; 83520; 83540; 83550; 83605; 83615; 83690; 83735; 84100; 84145; 84157; 84484; 85014; 85018; 85025; 85027; 85049; 85610; 85730; 86038; 86225; 86235; 86301; 86364; 86644; 86704; 86705; 86706; 86803; 86850; 86900; 86901; 86923; 86945; 87040; 87070; 87075; 87081; 87086; 87205; 87340; 88104; 88108; 88305; 88312; 88342; 89051; 93005; 96361; 96374; 97110; 97116; 97161; 97166; 97530; 97535; 99285; P9038; A9270; A9577; J0696; J1940; J2270; J2371; J2405; J2704; J2765; J7030; J7050; J7120; P9047